=== PATIENT | male | born 1945 | race Caucasian/White ===

== ENCOUNTER 2017-02-01 13:38 | Inpatient (IN) | payer OTHER ==
[~2017-02-01] VITALS: Ht 170.2 cm; Wt 104.0 kg
[~2017-02-01 13:38] MED LIST: ALBU0.08 INH; AMIO200T4 PO; ASPI81TA28 PO; ATOR-26 PO; CALC500C3 PO; CMD/25 PO; DOCU100T7 PO; LEVO25TA5 PO; LSX40 PO; METO25TA56 PO; NVLGIPEN SC; OXGN; PANT1TAB48 PO; SPR25 PO; TAMS0.4C38 PO
[2017-02-01] MEDS ORDERED: SODIUM CHLORIDE 0.9% 1000ML 1,000 ML IV SCH (14:17)
[2017-02-01] MEDS ORDERED: FURO-85 PO ×2 (14:28)
[2017-02-01] MEDS ORDERED: WARF5TAB7 PO ×2 (14:28)
[2017-02-01] MEDS ORDERED: RISP0.258 PO (14:28)
[2017-02-01] MEDS ORDERED: LORA-741 PO (14:28)
[2017-02-01] MEDS ORDERED: CITA10TA4 PO (14:28)
[2017-02-01] MEDS ORDERED: PRED10TA PO (14:28)
[2017-02-01 14:43] LABS: BASO % 0.1 %; BASO ABS # 0.01 K/uL (0-0.2); COMPLETE YES; EOS % 0.9 %; HEMATOCRIT 31.4 % (42-52); IG% 0.2 %; LYMPH ABS # 0.71 K/uL (1.2-3.4); MEAN CELL VOLUME 90.2 fL (80-100); MEAN CORPUSCULAR HEMOGLOBIN 28.2 pg (25-34); MEAN CORPUSCULAR HGB CONC 31.2 g/dl (32-36); MEAN PLATELET VOLUME 9.4 fL (7.4-10.4); MONO % 10.2 %; NEUT % 81.6 %; PLATELET COUNT 160 K/uL (130-400); RED BLOOD COUNT 3.48 M/uL (4.7-6.1); WHITE BLOOD COUNT 10.16 K/uL (4.8-10.8)
--- NOTE | 2017-02-01 14:43 | DIAGNOSTIC IMAGING REPORT ---
CHEST ONE VIEW PORTABLE CLINICAL HISTORY: Stroke mental status change COMPARISON STUDY: 01/30/2016 FINDINGS: Moderate increase in cardiac size compared to the prior study. Increase in pulmonary vascularity. Prior median sternotomy. Diaphragms smooth. Atelectasis medial right base. IMPRESSION: Congestive heart failure Electronically signed by: Jake Barbosa M.D. 02/01/2017 2:42 PM Dictated Date/Time: 02/01/2017 2:41 PM
--- NOTE | 2017-02-01 14:48 | DIAGNOSTIC IMAGING REPORT ---
HEAD CT NONCONTRAST CT DOSE: 537.48 mGy.cm HISTORY: Mental status change Stroke TECHNIQUE: Multiaxial CT images of the head were performed without the use of intravenous contrast. Comparison: None. Findings: The paranasal sinuses and mastoid air cells are clear. Findings of chronic small vessel change of the right periventricular as well as deep white matter regions bilaterally. Several old cortical infarction most likely present. There is no evidence for acute intracranial hemorrhage. There is no midline shift. There is small old infarct in left basal ganglia and/or anterior left thalamus. Ventricular system is midline. Third and fourth ventricle and negative shift. Impression: 1. Several old right and to a lesser extent left periventricular infarct. 2. No acute intracranial abnormality. Electronically signed by: Jake Barbosa M.D. 02/01/2017 2:47 PM Dictated Date/Time: 02/01/2017 2:44 PM
[2017-02-01] MEDS ORDERED: SODIUM CHLORIDE 0.9% 1000ML 1,000 ML IV STA (14:50)
[2017-02-01 15:00] LABS: BLOOD UREA NITROGEN 53 mg/dl (7-18); BUN/CREATININE RATIO 23.1 (10-20); CALCIUM 8.3 mg/dl (8.5-10.1); CARBON DIOXIDE 33 mmol/L (21-32); CHLORIDE 100 mmol/L (98-107); GLUCOSE 83 mg/dl (70-99); POTASSIUM 3.4 mmol/L (3.5-5.1); SODIUM 141 mmol/L (136-145)
[2017-02-01] MEDS ORDERED: SODI CHLOR 2.5MEQ/ML 14.6% INJ 155 MEQ in DEXTROSE 10% 1,000 ML IV SCH (15:00)
[2017-02-01] MEDS ORDERED: DEXTROSE 50% 50 ML SYR IV ONE (15:00)
[2017-02-01 15:05] LABS: CKMB/CK RATIO 1.4 (0-3.0)
[2017-02-01 15:07] LABS: PARTIAL THROMBOPLASTIN RATIO 2.1; PROTHROMBIN TIME (PATIENT) 67.5 SECONDS (9.0-12.0)
[2017-02-01 15:19] LABS: ALKALINE PHOSPHATASE 104 U/L (45-117); ALT/SGPT 34 U/L (12-78); AST/SGOT 23 U/L (15-37)
[2017-02-01] MEDS ORDERED: CEFEPIME IV 1,000 MG in DEXTROSE 5% 100ML 100 ML IV STA (15:25)
[2017-02-01 15:51] LABS: INR 5.9 (0.9-1.1)
[2017-02-01 15:59] LABS: URINE APPEARANCE CLEAR (CLEAR); URINE BILIRUBIN NEG (NEG); URINE COLOR YELLOW; URINE EPITHELIAL CELL AUTO 0-5 /lpf (0-5); URINE NITRITE POS (NEG); URINE PH 7.5 (4.5-7.5); URINE SPECIFIC GRAVITY 1.011 (1.000-1.030); UROBILINOGEN NEG (NEG); ZZURINE CULT IF INDIC CATH YES
[2017-02-01 16:02] LABS: MANUAL MICROSCOPIC REQUIRED? NO; REVIEW REQ? NO
[2017-02-01 16:14] LABS: BENZODIAZEPINE, URINE NEG (NEG); COCAINE,URINE NEG (NEG); PHENCYCLIDINE, URINE NEG (NEG)
[2017-02-01] MEDS ORDERED: ACETAMINOPHEN 325 MG TAB PO PRN (16:45)
[2017-02-01] MEDS ORDERED: ONDANSETRON INJ 2 MG/ML 2 ML VIAL IV PRN (16:45)
[2017-02-01] MEDS ORDERED: VNTHFA/IN INH (16:51)
[2017-02-01] MEDS ORDERED: OXGN (16:51)
[2017-02-01] MEDS ORDERED: ZOLP5TAB PO (16:51)
[2017-02-01] MEDS ORDERED: OXYM0.056 NAE (16:51)
[2017-02-01] MEDS ORDERED: METO25TA56 PO (16:51)
[2017-02-01] MEDS ORDERED: PHARMACIST DISCHARGE MED REC CONSULT PRN (17:15)
[2017-02-01] MEDS ORDERED: ALBUTEROL HFA 8 GM INHALER INH PRN (17:30)
[2017-02-01] MEDS ORDERED: GLUCOSE 10 TABS/TUBE PO PRN (17:30)
[2017-02-01] MEDS ORDERED: OXYMETAZOLINE HCL 0.05% NA SPR 15 ML BTL NAE PRN (17:30)
[2017-02-01] MEDS ORDERED: GLUCAGON FOR INJ 1 MG VIAL SQ PRN (17:30)
[2017-02-01] MEDS ORDERED: PHARMACY GLYCEMIC MGMT CONSULT SCH (17:31)
--- NOTE | 2017-02-01 17:52 | DIAGNOSTIC IMAGING REPORT ---
LEFT FIRST TOE 3 VIEWS CLINICAL HISTORY: Cellulitis. FINDINGS: 3 views of the left first toe are obtained. No prior studies are available for comparison at the time of dictation. The skeletal structures are osteopenic. There is no radiographic evidence of fracture. There is bony erosion and cortical destruction seen involving the tuft of the first distal phalanx, typical in appearance for osteomyelitis. Significant soft tissue edema is present in the first toe. No subcutaneous gas is identified. Mild arthritic change is noted at the first metatarsophalangeal articulation. IMPRESSION: Findings are consistent with osteomyelitis involving the tuft of the first distal phalanx with overlying cellulitis. Electronically signed by: Rudolph Figueroa M.D. 02/01/2017 5:51 PM Dictated Date/Time: 02/01/2017 5:50 PM
[2017-02-01] MEDS ORDERED: HYDROCORTISONE IV 100 MG in SYRINGE 0 ML IV ONE (18:00)
[2017-02-01] MEDS ORDERED: LEVETIRACETAM IV 1,000 MG in DEXTROSE 5% 100ML 100 ML IV STA (18:14)
[2017-02-01] MEDS: POTASSIUM CHLR 10 MEQ / WTR 10 MEQ in PREMIXED WATER 100 ML IV SCH ×2 (18:19→18:23)
[2017-02-01] MEDS: D5W AND NSS 1,000 ML IV SCH (18:19)
[2017-02-01] MEDS ORDERED: VANCOMYCIN CONSULT ACTIVE PRN (18:22)
[2017-02-01] MEDS ORDERED: POTASSIUM CHLORIDE 10 MEQ / 100ML WTR IV ONE (18:22)
[2017-02-01] MEDS ORDERED: PIPERACILL/TAZOBAC CONSULT ACTIVE PRN (18:23)
[2017-02-01] MEDS ORDERED: VANCOMYCIN INJ 2,100 MG in SODIUM CHLORIDE 0.9% 500ML 500 ML IV ONE (19:00)
[2017-02-01] MEDS ORDERED: PIPERACILL/TAZOBAC IV 4.5 GM in DEXTROSE 5% 100ML IV ONE (19:00)
[2017-02-01 19:41] LABS: CREATININE 2.3 mg/dl (0.60-1.40)
[2017-02-01 19:42] LABS: BUN/CREATININE RATIO 22.5 (10-20); POTASSIUM 4.3 mmol/L (3.5-5.1)
--- NOTE | 2017-02-01 19:43 | Pharmacy Progress Note ---
Pharmacy Antibiotic Consult Date of Service: Feb 01, 2017. Pharmacy Dosing Scope Pharmacy is consulted to initiate vancomycin/Zosyn IV dosing therapy, order appropriate labs and adjust drug dose/frequency. Subjective The patient is a 71 year old male admitted on Feb 01, 2017 at 16:40 with extreme AMS. He is being started on vancomycin for a cellulitis and Zosyn for a UTI. He also has hypoglycemia. Objective Height (Feet): 5 Height (Inches): 7.00 Weight (Kilograms): 104.000 Lab Results (24hrs): Laboratory Tests Test 02/01/17 14:30 02/01/17 19:00 BUN/Creatinine Ratio 23.1 Blood Urea Nitrogen 53 mg/dl Creatinine 2.30 mg/dl White Blood Count 10.16 K/uL Red Blood Count 3.48 M/uL Hemoglobin 9.8 g/dL Hematocrit 31.4 % Mean Corpuscular Volume 90.2 fL Mean Corpuscular Hemoglobin 28.2 pg Mean Corpuscular Hemoglobin Concent 31.2 g/dl Platelet Count 160 K/uL Mean Platelet Volume 9.4 fL Neutrophils (%) (Auto) 81.6 % Lymphocytes (%) (Auto) 7.0 % Monocytes (%) (Auto) 10.2 % Eosinophils (%) (Auto) 0.9 % Basophils (%) (Auto) 0.1 % Neutrophils # (Auto) 8.29 K/uL Lymphocytes # (Auto) 0.71 K/uL Monocytes # (Auto) 1.04 K/uL Eosinophils # (Auto) 0.09 K/uL Basophils # (Auto) 0.01 K/uL Assessment & Plan Loading dose: vancomycin 2100 mg IV X 1 dose then: Random level has been ordered for: . (patient's kidney function reflects a half-life of at least 24 hours and is in acute injury therefore will check random level tomorrow morning to determine if additional dosing necessary) Goal peak level estimate: between 35 - 40 mcg/mL. Goal trough level estimate: between 10 - 15 mcg/mL (SSTI and/or UTI). ZOSYN: dosing of Zosyn 4.5 gm IV x 1 then 4.5 gm IV [id number] has been chosen due to the patient's body habitus Pharmacy will continue to follow and will adjust dose/frequency as necessary. Thank you
--- NOTE | 2017-02-01 19:48 | EMERGENCY ROOM VISIT NOTE ---
History Report prepared by Sonam: Lam Alegre Under the Supervision of: Dr. Jose Royal D.O. First contact with patient: 14:05 Chief Complaint: HYPOGLYCEMIA Stated Complaint: HYPOGLYCEMIA History of Present Illness The patient is a 71 year old male who presents to the Emergency Room with complaints of an episode of hypoglycemia occurring about 2 hours ago. Per the nurse, his blood sugar was 29 when EMS arrived, and it is 106 here in the ER. He usually answers questions appropriately at baseline. The patient denies having any headache, shortness of breath, chest pain, abdominal pain, urinary symptoms, nausea, vomiting, or diarrhea. Per the patient, they received a call from their son noting that the patient stopped responding while getting ready for lunch 2 hours ago. The grandson noticed a facial droop and summoned EMS. The family adds that he had a severe headache last night, and one bout of watery diarrhea this morning. He has not had vomiting, but his overall demeanor has changed recently. They report he has left-sided weakness at baseline from a past stroke. He takes Coumadin, and is normally on 2 liters of supplemental oxygen. The patient has recently been started on Risperidone 0.25 mg and prednisone, and also takes Jantoven. The patient has atrial fibrillation and diabetes, but does not take his Novolog. Source of History: patient, family, nursing staff Onset: about 2 hours ago Position: other (blood) Quality: other (hypoglycemia) Timing: other (episode) Associated Symptoms: + diarrhea, + headache, + weakness, No SOB, No abdominal pain, No chest pain, No urinary symptoms, No vomiting Review of Systems See HPI for pertinent positives & negatives. A total of 10 systems reviewed and were otherwise negative. 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 Levothyroxine Sodium (Levothyroxine Sodium), 25 MCG PO DAILY Lorazepam (Ativan), 0.5 MG PO HS Metoprolol Tartrate (Lopressor) (Lopressor), 25 MG PO QAM Oxygen (Oxygen), 2 LITERS NA HS Pantoprazole (Protonix), 40 MG PO HS Prednisone Tab (Prednisone), 10 MG PO Q2D Risperidone (Risperdal), 0.25 MG PO BID Spironolactone (Spironolactone), 25 MG PO QAM Tamsulosin Hcl (Flomax), 0.4 MG PO HS Warfarin Sod (Jantoven), 5 MG PO DAILY ON TUESDAY Warfarin Sod (Jantoven), 2.5 MG PO [id number] Scheduled PRN Albuterol Hfa (Ventolin Hfa), 2 PUFFS INH Q4H PRN for SOB/Wheezing Docusate Sodium (Stool Softener), 100 MG PO DAILY PRN for Constipation Oxymetazoline Hcl (Afrin), 1 SPRAY EH DAILY PRN for Nasal Congestion Zolpidem Tartrate (Ambien), 5 MG PO HS PRN for Sleep Allergies Coded Allergies: Fish Allergy (Verified Allergy, Unknown, ., 01/30/16) Physical Exam Vital Signs Date Time Temp Pulse Resp B/P Pulse Ox O2 Delivery O2 Flow Rate FiO2 02/01/17 15:50 35.2 02/01/17 15:26 64 18 98/57 99 Room Air 02/01/17 15:10 73 24 120/59 100 Nasal Cannula 3.0 02/01/17 14:46 100 Nasal Cannula 3.0 02/01/17 13:44 57 139/91 100 Nasal Cannula 3.0 Physical Exam GENERAL: Sitting up in bed, ill appearing, slow to respond. EYE EXAM: normal conjunctiva, PERRL and EOM's intact OROPHARYNX: no exudate, no erythema, lips, buccal mucosa, and tongue normal and mucous membranes are moist NECK: supple, no nuchal rigidity, no adenopathy, non-tender LUNGS: Coarse bilaterally in the bases. CHEST: Old midline incision present. HEART: Bradycardic. ABDOMEN: abdomen soft, non-tender, normo-active bowel sounds, no masses, no rebound or guarding. BACK: Back is symmetrical on inspection and there is no deformity, no midline tenderness, no CVA tenderness. SKIN: no rashes and no bruising UPPER EXTREMITIES: upper extremities are grossly normal. LOWER EXTREMITIES: No pitting edema. NEURO EXAM: Alert; oriented to name, but not place or year. Cranial nerves reveals slight left facial droop; no obvious focal deficit of the upper or lower extremities; slurring of his words noted. No drift. Finger to nose intact. Gross sensation intact. Difficult to obtain exam. Medical Decision & Procedures ER Provider Diagnostic Interpretation: Radiology results have been interpreted by the radiologist and reviewed by me. HEAD CT NONCONTRAST Findings: The paranasal sinuses and mastoid air cells are clear. Findings of chronic small vessel change of the right periventricular as well as deep white matter regions bilaterally. Several old cortical infarction most likely present. There is no evidence for acute intracranial hemorrhage. There is no midline shift. There is small old infarct in left basal ganglia and/or anterior left thalamus. Ventricular system is midline. Third and fourth ventricle and negative shift. Impression: 1. Several old right and to a lesser extent left periventricular infarct. 2. No acute intracranial abnormality. Electronically signed by: Jake Barbosa M.D. 02/01/2017 2:47 PM Dictated Date/Time: 02/01/2017 2:44 PM CHEST ONE VIEW PORTABLE FINDINGS: Moderate increase in cardiac size compared to the prior study. Increase in pulmonary vascularity. Prior median sternotomy. Diaphragms smooth. Atelectasis medial right base. IMPRESSION: Congestive heart failure Electronically signed by: Jake Barbosa M.D. 02/01/2017 2:42 PM Dictated Date/Time: 02/01/2017 2:41 PM Laboratory Results 02/01/17 14:30 Red Blood Count 3.48, Mean Corpuscular Volume 90.2, Mean Corpuscular Hemoglobin 28.2, Mean Corpuscular Hemoglobin Concent 31.2, Mean Platelet Volume 9.4, Neutrophils (%) (Auto) 81.6, Lymphocytes (%) (Auto) 7.0, Monocytes (%) (Auto) 10.2, Eosinophils (%) (Auto) 0.9, Basophils (%) (Auto) 0.1, Neutrophils # (Auto ) 8.29, Lymphocytes # (Auto) 0.71, Monocytes # (Auto) 1.04, Eosinophils # (Auto ) 0.09, Basophils # (Auto) 0.01 Test 02/01/17 14:30 02/01/17 14:50 02/01/17 15:46 White Blood Count 10.16 K/uL (4.8-10.8) Red Blood Count 3.48 M/uL (4.7-6.1) Hemoglobin 9.8 g/dL (14.0-18.0) Hematocrit 31.4 % (42-52) Mean Corpuscular Volume 90.2 fL (80-100) Mean Corpuscular Hemoglobin 28.2 pg (25-34) Mean Corpuscular Hemoglobin Concent 31.2 g/dl (32-36) Platelet Count 160 K/uL (130-400) Mean Platelet Volume 9.4 fL (7.4-10.4) Neutrophils (%) (Auto) 81.6 % Lymphocytes (%) (Auto) 7.0 % Monocytes (%) (Auto) 10.2 % Eosinophils (%) (Auto) 0.9 % Basophils (%) (Auto) 0.1 % Neutrophils # (Auto) 8.29 K/uL (1.4-6.5) Lymphocytes # (Auto) 0.71 K/uL (1.2-3.4) Monocytes # (Auto) 1.04 K/uL (0.11-0.59) Eosinophils # (Auto) 0.09 K/uL (0-0.5) Basophils # (Auto) 0.01 K/uL (0-0.2) RDW Standard Deviation 52.8 fL (36.4-46.3) RDW Coefficient of Variation 16.1 % (11.5-14.5) Immature Granulocyte % (Auto) 0.2 % Immature Granulocyte # (Auto) 0.02 K/uL (0.00-0.02) Prothrombin Time 67.5 SECONDS (9.0-12.0) Prothromb Time International Ratio 5.9 (0.9-1.1) Activated Partial Thromboplast Time 53.9 SECONDS (21.0-31.0) Partial Thromboplastin Ratio 2.1 Magnesium Level 2.2 mg/dl (1.8-2.4) Total Bilirubin 0.5 mg/dl (0.2-1) Direct Bilirubin 0.2 mg/dl (0-0.2) Aspartate Amino Transf (AST/SGOT) 23 U/L (15-37) Alanine Aminotransferase (ALT/SGPT) 34 U/L (12-78) Alkaline Phosphatase 104 U/L (45-117) Total Creatine Kinase 77 U/L (39-308) Creatine Kinase MB 1.1 ng/ml (0.5-3.6) Creatine Kinase MB Ratio 1.4 (0-3.0) Troponin I < 0.015 ng/ml (0-0.045) Total Protein 7.2 gm/dl (6.4-8.2) Albumin 3.3 gm/dl (3.4-5.0) Lipase 230 U/L (73-393) Bedside Prothrombin Time INR 6.5 (0.9-1.1) Urine Color YELLOW Urine Appearance CLEAR (CLEAR) Urine pH 7.5 (4.5-7.5) Urine Specific [place] 1.011 (1.000-1.030) Urine Protein NEG (NEG) Urine Glucose (UA) NEG (NEG) Urine Ketones NEG (NEG) Urine Occult Blood NEG (NEG) Urine Nitrite POS (NEG) Urine Bilirubin NEG (NEG) Urine Urobilinogen NEG (NEG) Urine Leukocyte Esterase MODERATE (NEG) Urine WBC (Auto) 10-30 /hpf (0-5) Urine RBC (Auto) 0-4 /hpf (0-4) Urine Hyaline Casts (Auto) 1-5 /lpf (0-5) Urine Epithelial Cells (Auto) 0-5 /lpf (0-5) Urine Bacteria (Auto) 4+ (NEG) Urine Opiates Screen NEG (NEG) Urine Methadone, Qualitative NEG (NEG) Urine Barbiturates NEG (NEG) Urine Phencyclidine (PCP) Level NEG (NEG) Ur Amphetamine/Methamphetamine NEG (NEG) MDMA (Ecstasy) Screen NEG (NEG) Urine Benzodiazepines Screen NEG (NEG) Urine Cocaine Metabolite NEG (NEG) Urine Marijuana (THC) NEG (NEG) Laboratory results per my review. Medications Administered Medications (Trade) Dose Ordered Sig/Zoë Route Start Time Stop Time Status Last Admin Dose Admin Sodium Chloride (Nss 1000ml) 1,000 ml @ 999 mls/hr Q1H1M STAT IV 02/01/17 14:50 02/01/17 15:50 DC 02/01/17 14:58 999 MLS/HR Dextrose 25 ml 25 ml NOW ONCE IV 02/01/17 15:00 02/01/17 15:01 DC 02/01/17 14:59 25 ML Sodium Chloride 155 meq/Dextrose 1,062 ml @ 100 mls/hr [id number] IV 02/01/17 15:00 02/01/17 17:45 DC 02/01/17 15:29 100 MLS/HR Cefepime HCl/ Dextrose (Maxipime IV/D5 100ml) 111.3 ml @ 200 mls/hr NOW STAT IV 02/01/17 15:25 02/01/17 15:58 DC 02/01/17 17:17 200 MLS/HR ECG Indication: other (hypoglycemia) Rate (beats per minute): 64 Rhythm: other (AV paced) Findings: LBBB, left axis deviation ED Course ED COURSE: Vital signs were reviewed and showed bradycardic. The patients medical record was reviewed The above diagnostic studies were performed and reviewed. ED treatments and interventions as stated above. 1407: The patient was evaluated in room A11B. A complete history and physical examination was performed. 1417: Ordered NSS 1,000 ml @ 50 mls/hr IV. 1439: The nursing staff still has not received an i-STAT INR. 1450: Ordered NSS 1,000 ml @ 999 mls/hr IV. 1451: Blood sugar is 74; INR is 6. 1459: I updated the patient's family. 1500: Ordered Sodium Chloride 155 meq/Dextrose 1,062 ml @ 100 mls/hr IV, and Dextrose 25 ml IV. 1525: Ordered Cefepime HCl 1,000 mg/Dextrose 111.3 ml @ 200 mls/hr IV. 1525: I reviewed the patient's case with Naz Pompa PA-C. She will evaluate the patient for further management. 1530: Upon reevaluation, the patient is doing well.I discussed my findings with the patient and he understands and agrees with the treatment plan. Based on the patients age, coexisting illnesses, exam and lab findings the decision to treat as an inpatient was made. The patient remained stable while under my care. The patient will be evaluated for further management. 1606: I updated the patient. 1620: I updated the patient. Medical Decision Differential Diagnosis includes but is not limited to ischemic Stroke, hemorrhagic stroke, bells palsy, mass, neoplasm, migraine headache, seizure, subarachnoid hemorrhage, TIA, and transient global amnesia. Patient is a 71-year-old male who presents the ER for slurred speech and unresponsiveness. This started at 12 PM and EMS evaluated him and found his blood sugar to be in the 20s. He was given dextrose and had slight improvement of symptoms. Upon presentation to the ER he still found to be very lethargic and confused. He does have a little bit of a facial droop. He does have a previous old stroke. INR was supratherapeutic at 6. CT head shows no acute pathology. With his history of hypoglycemia prior to arrival and supratherapeutic INR a stroke alert was not called. Labs showed no significant leukocytosis and mild anemia. Creatinine was elevated at 2.3. LFTs, lipase and bilirubin were unremarkable. Troponin was negative. Patient continued to drop his blood sugars was placed on D10 drip. He takes no oral or injectable insulins. At this time I favor that this is likely infectious as he was slightly hypothermic. He was given cefepime. Later on in his course UA resulted and did suggest a UTI. UA was positive for nitrates, esterase, white cells and +4 bacteria. This that aren't previously been covered with IV antibiotics. Systolic blood pressures did trend down into the 90s. He was treated aggressively with fluids admitted to internal medicine with sepsis secondary to UTI. Consults Time Called: 1515 Consulting Physician: Naz Pompa PA-C, [facility] Returned Call: 1525 I reviewed the patient's case with Naz Pompa PA-C. She will evaluate the patient for further management. Impression Primary Impression: Sepsis Additional Impressions: Altered mental status Hypoglycemia Acute kidney injury UTI (urinary tract infection) Anemia Scribe Attestation The scribe's documentation has been prepared under my direction and personally reviewed by me in its entirety. I confirm that the note above accurately reflects all work, treatment, procedures, and medical decision making performed by me. Departure Information Dispostion Being Evaluated By Hospitalist Prescriptions Metoprolol Tartrate (Lopressor) (Lopressor) 25 Mg Tab 25 MG PO QAM for 30 Days, #30 TAB 2 Refills Prov: Naz Pompa PA-C 02/01/17 Referrals Familia Biggs D.O. (PCP) Patient Instructions My [facility] Problem Qualifiers Primary Impression: Sepsis Sepsis type: sepsis due to unspecified organism Qualified Codes: A41.9 - Sepsis, unspecified organism Additional Impressions: Altered mental status Altered mental status type: unspecified Qualified Codes: R41.82 - Altered mental status, unspecified UTI (urinary tract infection) Urinary tract infection type: site unspecified Hematuria presence: without hematuria Qualified Codes: N39.0 - Urinary tract infection, site not specified
[2017-02-01 20:53] LABS: ESTIMATED AVERAGE GLUCOSE 137 mg/dl; HA1C FLAG Normal (Normal)
--- NOTE | 2017-02-01 20:56 | DIAGNOSTIC IMAGING REPORT ---
ULTRASOUND OF THE CAROTID ARTERIES CLINICAL HISTORY: Strokelike symptoms. COMPARISON STUDY: No priors. TECHNIQUE: Real-time, grayscale, and color Doppler sonography of the carotid arteries is performed. Images are reviewed in the transverse and longitudinal planes. The examination is significantly degraded by lack of patient cooperation. FINDINGS: Blood pressures were not assessed. The carotid arteries are patent bilaterally and demonstrate antegrade flow. There is moderate to advanced echogenic shadowing atherosclerotic plaque seen bilaterally. Normal doppler arterial waveforms are seen throughout. Velocity measurements are listed below. Common carotid peak systolic velocity (cm/sec): RIGHT: 82 LEFT: 79 ICA proximal peak systolic velocity (cm/sec): RIGHT: 82 LEFT: 102 ICA mid peak systolic velocity (cm/sec): RIGHT: 89 LEFT: 107 ICA distal peak systolic velocity (cm/sec): RIGHT: 89 LEFT: 125 ICA/CC peak systolic ratio: RIGHT: 1.1 LEFT: 1.6 Antegrade flow was shown in the vertebral arteries. The external carotid arteries are patent. Elevated velocities within the left external carotid artery suggests some degree of stenosis. IMPRESSION: 1. Atherosclerotic plaque with no sonographic evidence of hemodynamically significant stenosis in the right or left carotid arterial system. 2. Antegrade flow is shown in the vertebral arteries. Electronically signed by: Rudolph Figueroa M.D. 02/01/2017 8:54 PM Dictated Date/Time: 02/01/2017 8:52 PM
[2017-02-01] MEDS: RISPERIDONE 0.5 MG TAB PO SCH (21:01)
[2017-02-01] MEDS: TAMSULOSIN HCL 0.4 MG CAP PO SCH (21:02)
[2017-02-01] MEDS: ATORVASTATIN 40 MG TAB PO SCH (21:02)
[2017-02-01] MEDS: PANTOprazole SOD 40 MG TAB PO SCH (21:03)
--- NOTE | 2017-02-01 21:09 | Pharmacy Progress Note ---
Glycemic Control Intl Consult Date of Service Feb 01, 2017. Scope Glycemic Pharmacist consulted by Naz Pompa on 02/01/2017 for glycemic control and to write orders per [facility] inpatient glycemic control protocol Objective Weight (Kilograms): 104.000 Accuchecks BSG (last 24hrs): Test 02/01/17 13:47 02/01/17 14:21 02/01/17 14:30 02/01/17 14:50 Bedside Glucose 106 mg/dl (70-99) 92 mg/dl (70-99) 74 mg/dl (70-99) Random Glucose 83 mg/dl (70-99) Test 02/01/17 16:40 02/01/17 17:19 02/01/17 19:00 Bedside Glucose 122 mg/dl (70-99) 124 mg/dl (70-99) Random Glucose 132 mg/dl (70-99) Laboratory Data (last 24hrs) Test 02/01/17 14:30 02/01/17 19:00 Anion Gap 8.0 mmol/L 7.0 mmol/L BUN/Creatinine Ratio 23.1 22.5 Blood Urea Nitrogen 53 mg/dl 52 mg/dl Creatinine 2.30 mg/dl 2.30 mg/dl Hemoglobin A1c 6.4 % Potassium Level 3.4 mmol/L 4.3 mmol/L Sodium Level 141 mmol/L 140 mmol/L White Blood Count 10.16 K/uL Red Blood Count 3.48 M/uL Hemoglobin 9.8 g/dL Hematocrit 31.4 % Mean Corpuscular Volume 90.2 fL Mean Corpuscular Hemoglobin 28.2 pg Mean Corpuscular Hemoglobin Concent 31.2 g/dl Platelet Count 160 K/uL Mean Platelet Volume 9.4 fL Neutrophils (%) (Auto) 81.6 % Lymphocytes (%) (Auto) 7.0 % Monocytes (%) (Auto) 10.2 % Eosinophils (%) (Auto) 0.9 % Basophils (%) (Auto) 0.1 % Neutrophils # (Auto) 8.29 K/uL Lymphocytes # (Auto) 0.71 K/uL Monocytes # (Auto) 1.04 K/uL Eosinophils # (Auto) 0.09 K/uL Basophils # (Auto) 0.01 K/uL HbA1c Test 02/01/17 14:30 Hemoglobin A1c 6.4 % (4.5-5.6) H Recent Pertinent Medications Outpatient Anti-diabetic Regimen: * according to nursing report patient is not on insulin or diabetes medications at home * A1c = 6.4 % 02/01/2017 Risk Factors for Insulin Resistance: * Steroids: hydrocortisone 100 mg IV x 1 then 50 mg IV q6 hours * Infection: sepsis * Pressors: * IVF: D5Ns @75 ml/hr * Recent Surgery * Diet: NPO * Mechanical Ventilation: Assessment & Plan ASSESSMENT: * ADA & AACE recommend a goal blood sugar range 140-180 mg/dl for the majority of critically ill & non-critically ill patients. However, more stringent targets may be selected in individual cases. PLAN FOR INPATIENT GLYCEMIC CONTROL: * Holding outpatient oral diabetes medications * Correctional Insulin with NOVOLOG per scale Q6hrs while NPO * Goal Range: Low 140 mg/dL - High 180 mg/dL * Correction Factor: 30 mg/dL/unit * Please note that the plan above was derived based on current level of insulin resistance and hospital stress. These recommendations are appropriate for inpatient admission only. Plan of care upon discharge will need to be reassessed to avoid potential outpatient hypo/hyperglycemia. Thank you.
[2017-02-01] MEDS ORDERED: TRAMADOL HCL 50 MG TAB PO PRN (21:30)
[2017-02-01] MEDS ORDERED: TRAMADOL HCL 50 MG TAB PO ONE (21:30)
[2017-02-01] MEDS ORDERED: SODIUM CHLORIDE 0.9% 500ML 500 ML IV SCH (21:30)
--- NOTE | 2017-02-01 22:29 | Progress Note ---
Progress Note Date of Service Feb 01, 2017. Progress Note ATTENDING ADDENDUM care coordinated with MAIKOL Pompa please refer to her notes for full details, I agree with her notes patient seen and examined, records reviewed by myself as well patient examined with family at bedside while in observation at the ER, son noted that patient's mental status was waxing/waning- occasionally lethargic, but becomes alert again at one point, they noted patient to be shaking all his extremities, with his eyes opened, episode lasting about 5 mins, then patient became lethargic on exam, patient was alert, answering questions, then became nonverbal, and was conversant, following all commands again still has right facial droop per family patient states he feels fine overall cannot recall events this morning denies headache, dizziness, nausea, chest pain, dyspnea no focal weakness/numbness no other symptoms VS noted and reviewed oriented x 2, not in distress, speaks in sentences with no effort nor accessory muscle use normal rate, regular rhythm, no murmurs clear breath sounds bilaterally non distended, soft, nontender (+) wound on the left big toe with erythema, edema no neuro deficits WBC 10.[address] head: no acute CVA noted ASSESSMENT/PLAN> 71 year old male with history of A fib, s/p CVA with left sided residual weakness. CAD, CHF, DM, presenting with altered mental status and right sided facial droop ALTERED MENTAL STATUS WITH RIGHT SIDED FACIAL DROOP POSSIBLE ACUTE CVA already on coumadin, INR 6.5 and Aspirin MRI contraindicated as patient has a pacemaker repeat CT head tomorrow may need to reverse INR, hold coumadin and aspirin if area of ischemia is >1/ 3 of cerebral hemisphere check Echo, Carotids POSSIBLE TOXIC METABOLIC ENCEPHALOPATHY FROM INFECTION LEFT TOE ULCER, CELLULITIS, R/O OSTEOMYELITIS R/O UTI ff up cultures Toe xray IV fluids empiric Vanc + Zosyn IV POSSIBLE SEIZURE episode noted while in the ER EEG Keppra IV HYPOTHERMIA, HYPOGLYCEMIA likely from underlying Infection Chronic Prednisone use - management of infection as noted above - hold prednisone, start stress dose Hydrocortisone and taper accordingly ACUTE RENAL FAILURE ON CKD - possible pre renal - HOLD diuretics - IV fluids other diagnoses and plan of care as per MAIKOL Pompa's notes Harish Irizarry MD
--- NOTE | 2017-02-01 22:54 | History and Physical ---
History & Physical Date & Time of Service: Feb 01, 2017 at 17:28 Chief Complaint: Hypoglycemia Primary Care Physician: Familia Biggs D.O. History of Present Illness Source: family, clinic records, hospital records This is a 71 y/o male with PMH of prior CVA in 2014 with residual left sided weakness, CAD, diastolic CHF, paroxysmal atrial fibrillation, SA node dysfunction s/p pacemaker, HTN, HL, DM type 2, and other problems listed below who presents to the ED for altered mental status and right facial droop. Hx cannot be obtained from pt due to mental status. Family states for past 2 weeks patient has been agitated and aggressive and was having visual hallucinations seeing people who were not there. Last night pt had severe BRISENO which resolved with aspirin. He ate breakfast this morning and had a loose BM. Then around noon while with his grandson he became verbally unresponsive with right facial droop. It was reported that his blood sugar was 20 when EMS arrived. He received glucose [employer] and dextrose in the ER. Initially on arrival patient was unable to identify his son. Could not tell me the location on beginning of my exam. By the end of my exam was able to identify his son and tell he was in the hospital. Disoriented to date but family states that is typical. Still has right facial droop. Family reported a generalized shaking episode in the ER lasting 5 minutes but did not alert the staff. Family reports intermittent staring after that. Patient is unable to tell what happened today. When questioned states he "feels good". Patient himself denies but I do not consider his answers reliable. Family states pt was treated for URI with productive cough and cellulitis of right great toe with abx approx 1 month ago. The cough resolved but the toe did not improve. Has urinary odor at baseline and now has darkened urine. No fevers or chills per the family. No recent bleeding per the family. Patient is mostly bedbound and requires assistance with most ADL's. Family having a hard time taking care of him recently and looking into placement. Daughter in law gives medications. Patient has not had insulin for several months as he has been refusing it. Past Medical/Surgical History Medical Problems: (1) Anemia Nos Status: Chronic (2) Atrial Fibrillation Status: Chronic (3) CHF (congestive heart failure) Status: Resolved (4) Chronic anticoagulation Status: Chronic (5) CKD (chronic kidney disease), stage III Status: Chronic (6) COPD (chronic obstructive pulmonary disease) Status: Chronic (7) Diab W Neuro Manifest, Type Ii Or Unspec Type, Not Uncntrld Status: Chronic (8) Diastolic CHF Status: Chronic (9) GI bleed Status: Resolved (10) History of stroke Permanent Comment: 2014 with residual left sided weakness Status: Chronic (11) Hyperlipidemia Nec/Nos Status: Chronic (12) Hypertension Nos Status: Chronic (13) Hypothyroidism Status: Chronic (14) Legal blindness Status: Chronic (15) Myocardial infarct Status: Resolved (16) Pacemaker Status: Chronic (17) Pulmonary hypertension Status: Chronic (18) SA node dysfunction Status: Chronic (19) Urin Tract Infection Nos Status: Resolved Surgical Problems: (1) H/O mitral valve replacement Status: Chronic (2) Heart valve replaced Status: Resolved (3) Hx of CABG Status: Resolved Family History Diabetes mellitus FH: lung disease FHx: cancer FHx: heart disease Hypertension Social History Smoking Status: Former Smoker Alcohol Use: none Drug Use: none Marital Status: Occupational Status: retired Immunizations History of Influenza Vaccine: Yes Influenza Vaccine Date: Sep 09, 2015 History of Pneumococcal: Yes Pneumococcal Date: Mar 06, 2014 Multi-Drug Resistant Organisms History of MDRO: Yes Type of MDRO: VRE Allergies Coded Allergies: Fish Allergy (Verified Allergy, Unknown, ., 01/30/16) Home Medications Scheduled Amiodarone Hcl (Cordarone), 200 TAB PO QAM Aspirin (Aspirin Ec), 81 MG PO DAILY Atorvastatin (Lipitor), 80 MG PO HS Citalopram Hydrobromide (Citalopram Hydrobromide), 10 MG PO DAILY Furosemide (Lasix), 40 MG PO QAM Insulin Aspart (Novolog Flexpen), 0-10 UNITS SC SLIDING SCALE. Levothyroxine Sodium (Levothyroxine Sodium), 25 MCG PO DAILY Lorazepam (Ativan), 0.5 MG PO HS Metoprolol Tartrate (Lopressor) (Lopressor), 25 MG PO QAM Oxygen (Oxygen), 2 LITERS NA HS Pantoprazole (Protonix), 40 MG PO HS Prednisone Tab (Prednisone), 10 MG PO Q2D Risperidone (Risperdal), 0.25 MG PO BID Spironolactone (Spironolactone), 25 MG PO QAM Tamsulosin Hcl (Flomax), 0.4 MG PO HS Warfarin Sod (Novtoven), 5 MG PO DAILY ON TUESDAY Warfarin Sod (Novtoven), 2.5 MG PO [id number] Scheduled PRN Albuterol Hfa (Ventolin Hfa), 2 PUFFS INH Q4H PRN for SOB/Wheezing Docusate Sodium (Stool Softener), 100 MG PO DAILY PRN for Constipation Oxymetazoline Hcl (Afrin), 1 SPRAY EH DAILY PRN for Nasal Congestion Zolpidem Tartrate (Ambien), 5 MG PO HS PRN for Sleep Review of Systems Unable to obtain ROS due to mental status. Physical Exam Vital Signs Date Time Temp Pulse Resp B/P Pulse Ox O2 Delivery O2 Flow Rate FiO2 02/01/17 15:50 35.2 02/01/17 15:26 64 18 98/57 99 Room Air 02/01/17 15:10 73 24 120/59 100 Nasal Cannula 3.0 02/01/17 14:46 100 Nasal Cannula 3.0 02/01/17 13:44 57 139/91 100 Nasal Cannula 3.0 General Appearance: + pertinent finding (confused acutely ill appearing 71 year old male, not in distress, poor hygiene, family at bedside) Head: normocephalic, atraumatic Eyes: normal inspection, PERRL, + pertinent finding (unable to cooperate with EOM exam) ENT: hearing grossly normal, pharynx normal Neck: supple, trachea midline Respiratory/Chest: lungs clear, normal breath sounds, no respiratory distress, no accessory muscle use Cardiovascular: regular rate, rhythm, + systolic murmur Abdomen/GI: normal bowel sounds, non tender, soft Extremities/Musculoskelatal: no calf tenderness, + pertinent finding (trace pretibial edema bilaterally) Neurologic/Psych: alert, + pertinent finding (awake but falls asleep intermittently. oriented to person and place, disoriented to date. unable to recall recent events. does not follow commands appropriately. mild right sided facial droop. uncooperative with motor exam but spontaneously moves all extremities. sensation to light touch grossly intact. toes downgoing. ) Skin: warm/dry, + pertinent finding (scattered ecchymosis upper extremities. skin tear RUE. dressing on LUE. left great toe with significant erythema and tenderness. no fluctuance or drainage.) Diagnostics Laboratory Results Results Past 24 Hours Test 02/01/17 13:47 02/01/17 14:21 02/01/17 14:30 02/01/17 14:50 Range/Units Bedside Glucose 106 92 74 70-99 mg/dl White Blood Count 10.16 4.8-10.8 K/uL Red Blood Count 3.48 4.7-6.1 M/uL Hemoglobin 9.8 14.0-18.0 g/dL Hematocrit 31.4 42-52 % Mean Corpuscular Volume 90.2 80-100 fL Mean Corpuscular Hemoglobin 28.2 25-34 pg Mean Corpuscular Hemoglobin Concent 31.2 32-36 g/dl Platelet Count 160 130-400 K/uL Mean Platelet Volume 9.4 7.4-10.4 fL Neutrophils (%) (Auto) 81.6 % Lymphocytes (%) (Auto) 7.0 % Monocytes (%) (Auto) 10.2 % Eosinophils (%) (Auto) 0.9 % Basophils (%) (Auto) 0.1 % Neutrophils # (Auto) 8.29 1.4-6.5 K/uL Lymphocytes # (Auto) 0.71 1.2-3.4 K/uL Monocytes # (Auto) 1.04 0.11-0.59 K/uL Eosinophils # (Auto) 0.09 0-0.5 K/uL Basophils # (Auto) 0.01 0-0.2 K/uL RDW Standard Deviation 52.8 36.4-46.3 fL RDW Coefficient of Variation 16.1 11.5-14.5 % Immature Granulocyte % (Auto) 0.2 % Immature Granulocyte # (Auto) 0.02 0.00-0.02 K/uL Prothrombin Time 67.5 9.0-12.0 SECONDS Prothromb Time International Ratio 5.9 0.9-1.1 Activated Partial Thromboplast Time 53.9 21.0-31.0 SECONDS Partial Thromboplastin Ratio 2.1 Sodium Level 141 136-145 mmol/L Potassium Level 3.4 3.5-5.1 mmol/L Chloride Level 100 98-107 mmol/L Carbon Dioxide Level 33 21-32 mmol/L Anion Gap 8.0 3-11 mmol/L Blood Urea Nitrogen 53 7-18 mg/dl Creatinine 2.30 0.60-1.40 mg/dl Est Creatinine Clear Calc Drug Dose 32.9 ml/min Estimated GFR () 31.5 Estimated GFR (Non- 27.2 BUN/Creatinine Ratio 23.1 10-20 Random Glucose 83 70-99 mg/dl Calcium Level 8.3 8.5-10.1 mg/dl Magnesium Level 2.2 1.8-2.4 mg/dl Total Bilirubin 0.5 0.2-1 mg/dl Direct Bilirubin 0.2 0-0.2 mg/dl Aspartate Amino Transf (AST/SGOT) 23 15-37 U/L Alanine Aminotransferase (ALT/SGPT) 34 12-78 U/L Alkaline Phosphatase 104 45-117 U/L Total Creatine Kinase 77 39-308 U/L Creatine Kinase MB 1.1 0.5-3.6 ng/ml Creatine Kinase MB Ratio 1.4 0-3.0 Troponin I < 0.015 0-0.045 ng/ml Total Protein 7.2 6.4-8.2 gm/dl Albumin 3.3 3.4-5.0 gm/dl Lipase 230 73-393 U/L Bedside Prothrombin Time INR 6.5 0.9-1.1 Test 02/01/17 15:46 02/01/17 16:40 Range/Units Urine Color YELLOW Urine Appearance CLEAR CLEAR Urine pH 7.5 4.5-7.5 Urine Specific [place] 1.011 1.000-1.030 Urine Protein NEG NEG Urine Glucose (UA) NEG NEG Urine Ketones NEG NEG Urine Occult Blood NEG NEG Urine Nitrite POS NEG Urine Bilirubin NEG NEG Urine Urobilinogen NEG NEG Urine Leukocyte Esterase MODERATE NEG Urine WBC (Auto) 10-30 0-5 /hpf Urine RBC (Auto) 0-4 0-4 /hpf Urine Hyaline Casts (Auto) 1-5 0-5 /lpf Urine Epithelial Cells (Auto) 0-5 0-5 /lpf Urine Bacteria (Auto) 4+ NEG Urine Opiates Screen NEG NEG Urine Methadone, Qualitative NEG NEG Urine Barbiturates NEG NEG Urine Phencyclidine (PCP) Level NEG NEG Ur Amphetamine/Methamphetamine NEG NEG MDMA (Ecstasy) Screen NEG NEG Urine Benzodiazepines Screen NEG NEG Urine Cocaine Metabolite NEG NEG Urine Marijuana (THC) NEG NEG Bedside Glucose 122 70-99 mg/dl Microbiology Results 02/01/17 Blood Culture, Received Pending 02/01/17 Blood Culture, Received Pending 02/01/17 Urine Culture, Received Pending Diagnostic Radiology HEAD CT NONCONTRAST CT DOSE: 537.48 mGy.cm HISTORY: Mental status change Stroke TECHNIQUE: Multiaxial CT images of the head were performed without the use of intravenous contrast. Comparison: None. Findings: The paranasal sinuses and mastoid air cells are clear. Findings of chronic small vessel change of the right periventricular as well as deep white matter regions bilaterally. Several old cortical infarction most likely present. There is no evidence for acute intracranial hemorrhage. There is no midline shift. There is small old infarct in left basal ganglia and/or anterior left thalamus. Ventricular system is midline. Third and fourth ventricle and negative shift. Impression: 1. Several old right and to a lesser extent left periventricular infarct. 2. No acute intracranial abnormality. CHEST ONE VIEW PORTABLE CLINICAL HISTORY: Stroke mental status change COMPARISON STUDY: 01/30/2016 FINDINGS: Moderate increase in cardiac size compared to the prior study. Increase in pulmonary vascularity. Prior median sternotomy. Diaphragms smooth. Atelectasis medial right base. IMPRESSION: Congestive heart failure ULTRASOUND OF THE CAROTID ARTERIES CLINICAL HISTORY: Strokelike symptoms. COMPARISON STUDY: No priors. TECHNIQUE: Real-time, grayscale, and color Doppler sonography of the carotid arteries is performed. Images are reviewed in the transverse and longitudinal planes. The examination is significantly degraded by lack of patient cooperation. FINDINGS: Blood pressures were not assessed. The carotid arteries are patent bilaterally and demonstrate antegrade flow. There is moderate to advanced echogenic shadowing atherosclerotic plaque seen bilaterally. Normal doppler arterial waveforms are seen throughout. Velocity measurements are listed below. Common carotid peak systolic velocity (cm/sec): RIGHT: 82 LEFT: 79 ICA proximal peak systolic velocity (cm/sec): RIGHT: 82 LEFT: 102 ICA mid peak systolic velocity (cm/sec): RIGHT: 89 LEFT: 107 ICA distal peak systolic velocity (cm/sec): RIGHT: 89 LEFT: 125 ICA/CC peak systolic ratio: RIGHT: 1.1 LEFT: 1.6 Antegrade flow was shown in the vertebral arteries. The external carotid arteries are patent. Elevated velocities within the left external carotid artery suggests some degree of stenosis. IMPRESSION: 1. Atherosclerotic plaque with no sonographic evidence of hemodynamically significant stenosis in the right or left carotid arterial system. 2. Antegrade flow is shown in the vertebral arteries. LEFT FIRST TOE 3 VIEWS CLINICAL HISTORY: Cellulitis. FINDINGS: 3 views of the left first toe are obtained. No prior studies are available for comparison at the time of dictation. The skeletal structures are osteopenic. There is no radiographic evidence of fracture. There is bony erosion and cortical destruction seen involving the tuft of the first distal phalanx, typical in appearance for osteomyelitis. Significant soft tissue edema is present in the first toe. No subcutaneous gas is identified. Mild arthritic change is noted at the first metatarsophalangeal articulation. IMPRESSION: Findings are consistent with osteomyelitis involving the tuft of the first distal phalanx with overlying cellulitis. EKG V paced rhythm with occasional AV dual paced complexes, suspect unspecified pacemaker failure, as per cardiology read Impression Assessment and Plan ALTERED MENTAL STATUS WITH RIGHT FACIAL DROOP Possible TIA; rule out acute CVA; history of prior CVA with left side residual weakness Possible metabolic encephalopathy from hypoglycemia, infection Urine drug screen negative Initial CT head showed multiple old strokes, no acute findings Unable to obtain MRI as patient has pacemaker, also is uncooperative Check repeat CT head tomorrow am Check carotid doppler, echo with bubble study Continue aspirin and statin; Coumadin held for supratherapeutic INR Neuro checks Speech, PT, OT evaluations Consult neurology POSSIBLE SEIZURE ACTIVITY Check EEG Seizure precautions Start Keppra Consult neurology HYPOGLYCEMIA with HYPOTHERMIA Possibly due to underlying infection; has DM 2 not using insulin at home UA appears infected-> urine culture pending Has osteomyelitis of left great toe Blood cultures pending Received cefepime in ER Will give broad spectrum empiric abx- Vancomycin and Zosyn On chronic steroids for unknown reason- > Stress does steroids ordered Hypoglycemia improved after glucose given [employer] and dextrose given in ER Placed on D5 NSS at 75 cc/hour ISS while on IV steroids Consult pharmacy for glycemic control LEFT GREAT TOE OSTEOMYELITIS Antibiotic coverage noted above Consult infectious disease Consult orthopedic surgery UTI Antibiotic coverage noted above Urine culture pending [place] on CKD III Creat increased to 2.3 from baseline 2.0 Hold Lasix and spironolactone Continue IVF's Monitor renal function HYPOKALEMIA Replacement given; resolved Monitor PRP BORDERLINE BP Lasix and spironolactone held Metoprolol reduced from 25 mg ->12.5 mg daily PAROXYSMAL AFIB/ SINUS NODE DYSFUNCTION S/P PACEMAKER INR supratherapeutic Hold Coumadin; monitor INR Rate is controlled Metoprolol dose decreased from 25 ->12.5 mg daily Continue amiodarone Interrogate pacemaker CHRONIC DIASTOLIC CHF CXR shows congestive findings Appears compensated on exam Hold Lasix and spironolactone for now COPD WITH NOCTURNAL HYPOXEMIA Not in acute exacerbation Continue nocturnal O2 CHRONIC ANEMIA Hg 9.8; stable from baseline Family denies bleeding Monitor CBC CAD S/P CABG Continue aspirin, statin, beta ramona HYPOTHYROIDISM Continue levothyroxine DVT PROPHYLAXIS SCDs; hold Coumadin for supratherapeutic INR CODE STATUS DNR per my discussion with the son Malik Lora who is POA DISPOSITION Lives with family who report difficulty caring for him; they are interested in placement environmental services attendant consulted Patient seen in collaboration with Dr. Irizarry. Please see his addendum. VTE Prophylaxis VTE Risk Assessment Done? Y/N: Yes Risk Level: Moderate
[2017-02-02] MEDS: HYDROCORTISONE IV 50 MG in SYRINGE 0 ML IV SCH ×4 (03:08→20:23)
[2017-02-02] MEDS: PIPERACILL/TAZOBAC IV 4.5 GM in DEXTROSE 5% 100ML IV SCH ×3 (03:08→19:35)
[2017-02-02 04:31] LABS: BASO % 0.1 %; BASO ABS # 0.01 K/uL (0-0.2); EOS % 0.1 %; HEMATOCRIT 28.2 % (42-52); IG% 0.3 %; LYMPH ABS # 0.23 K/uL (1.2-3.4); MEAN CELL VOLUME 90.4 fL (80-100); MEAN CORPUSCULAR HEMOGLOBIN 27.9 pg (25-34); MEAN CORPUSCULAR HGB CONC 30.9 g/dl (32-36); MONO % 6.2 %; NEUT % 90.3 %; PLATELET COUNT 138 K/uL (130-400); RED BLOOD COUNT 3.12 M/uL (4.7-6.1); WHITE BLOOD COUNT 7.72 K/uL (4.8-10.8)
[2017-02-02 04:49] LABS: BUN/CREATININE RATIO 20.4 (10-20); CALCIUM 7.4 mg/dl (8.5-10.1); CREATININE 2.1 mg/dl (0.60-1.40); POTASSIUM 4.9 mmol/L (3.5-5.1)
[2017-02-02 04:52] LABS: CHOLESTEROL/HDL RATIO 1.7
[2017-02-02 04:54] LABS: PROTHROMBIN TIME (PATIENT) 76.6 SECONDS (9.0-12.0)
[2017-02-02 04:59] LABS: INR 6.6 (0.9-1.1)
[2017-02-02 05:07] LABS: ACANTHOCYTES 1+; COMPLETE YES; ECHINOCYTES 1+
[2017-02-02] MEDS: DEXTROSE 50% 50 ML SYR IV PRN (05:56)
[2017-02-02] MEDS: INSULIN ASPART 100 UNITS/ML 3 ML PEN SC SCH ×5 (07:06→21:00)
--- NOTE | 2017-02-02 08:04 | DIAGNOSTIC IMAGING REPORT ---
CT OF THE HEAD WITHOUT CONTRAST CLINICAL HISTORY: Transient ischemic attack. COMPARISON STUDY: Head CT February 01, 2017. CT DOSE: 1074.96 mGy.cm TECHNIQUE: Helical axial images of the head were obtained without IV contrast. Automated exposure control was utilized for the study. FINDINGS: No acute intracranial hemorrhage, midline shift or mass effect is present. Ventricular system is unremarkable. Basilar cisterns are patent. There are no extra-axial collections. Hypodensities within the right frontal lobe are unchanged and suggest old infarcts. There is an old lacunar infarct within the right cerebellar hemisphere. There is an old infarct within the left thalamus. There are no CT findings to suggest acute dural sinus thrombosis or acute territorial infarct. There is no calvarial fracture. There is mild mucosal thickening of the sinuses. There are postsurgical findings of the right globe. IMPRESSION: 1. No acute intracranial hemorrhage or mass effect. 2. Multiple infarcts, as described above. These are unchanged in appearance since exam of February 01, 2017 and likely old. Electronically signed by: Demetrius Maria M.D. 02/02/2017 8:03 AM Dictated Date/Time: 02/02/2017 7:59 AM
[2017-02-02] MEDS: D5W AND NSS 1,000 ML IV SCH ×2 (08:34→13:42)
[2017-02-02] MEDS: LEVETIRACETAM IV 500 MG in DEXTROSE 5% 100ML 100 ML IV SCH ×3 (08:34→22:52)
[2017-02-02] MEDS: AMIODARONE 200 MG TAB PO SCH (08:40)
[2017-02-02] MEDS: METOPROLOL TARTRATE 25 MG TAB PO SCH ×2 (08:40→22:53)
[2017-02-02] MEDS: ASPIRIN 81 MG ECTAB PO SCH (08:40)
[2017-02-02 09:00] VITALS: BP 141/60; PULSE 63; TEMP 36.4; O2SAT 96; BMI 35.9
[2017-02-02] MEDS ORDERED: METOPROLOL TARTRATE 25 MG TAB PO SCH (09:00)
[2017-02-02] MEDS: RISPERIDONE 0.5 MG TAB PO SCH ×2 (09:39→22:54)
[2017-02-02] MEDS: LEVOTHYROXINE 25 MCG TAB PO SCH (09:40)
[2017-02-02] MEDS: CITALOPRAM 20 MG TAB PO SCH (09:40)
--- NOTE | 2017-02-02 09:52 | Pharmacy Progress Note ---
Pharmacy Antibiotic Prog Note Date of Service: Feb 02, 2017. Subjective: The patient is currently receiving the following antimicrobials per Pharmacy consult: Vancomycin IV dosed per random level Zosyn 4.5 g IV every 8 hours Objective: Height (Feet): 5 Height (Inches): 7.00 Weight (Kilograms): 104.000 Levels: Item Value Date Time Random Vancomycin Level 17.4 mcg/ml 02/02/17 0425 Lab Results (24hrs): Laboratory Tests Test 02/01/17 14:30 02/01/17 19:00 02/02/17 04:25 BUN/Creatinine Ratio 23.1 22.5 20.4 Blood Urea Nitrogen 53 mg/dl 52 mg/dl 43 mg/dl Creatinine 2.30 mg/dl 2.30 mg/dl 2.10 mg/dl White Blood Count 10.16 K/uL 7.72 K/uL Red Blood Count 3.48 M/uL 3.12 M/uL Hemoglobin 9.8 g/dL 8.7 g/dL Hematocrit 31.4 % 28.2 % Mean Corpuscular Volume 90.2 fL 90.4 fL Mean Corpuscular Hemoglobin 28.2 pg 27.9 pg Mean Corpuscular Hemoglobin Concent 31.2 g/dl 30.9 g/dl Platelet Count 160 K/uL 138 K/uL Mean Platelet Volume 9.4 fL 9.0 fL Neutrophils (%) (Auto) 81.6 % 90.3 % Lymphocytes (%) (Auto) 7.0 % 3.0 % Monocytes (%) (Auto) 10.2 % 6.2 % Eosinophils (%) (Auto) 0.9 % 0.1 % Basophils (%) (Auto) 0.1 % 0.1 % Neutrophils # (Auto) 8.29 K/uL 6.97 K/uL Lymphocytes # (Auto) 0.71 K/uL 0.23 K/uL Monocytes # (Auto) 1.04 K/uL 0.48 K/uL Eosinophils # (Auto) 0.09 K/uL 0.01 K/uL Basophils # (Auto) 0.01 K/uL 0.01 K/uL Micro Results: Item Value Date Time Blood Culture Received 02/01/17 1708 Blood Pending Blood Culture Received 02/01/17 1705 Blood Pending Urine Culture - Preliminary Resulted 02/01/17 1546 Urine,Catheterized Proteus Species Assessment & Plan: Assessment 71 year old male receiving Vancomycin and Zosyn for treatment of left great toe osteomyelitis/cellulitis and Proteus UTI (sensitivities pending). Day # 2 of antimicrobial therapy. Plan Vancomycin IV * Random level this am is 17.4 mcg/mL. * Scr improved from 2.3 to 2.1 mg/dL today (baseline is reported to be ~1.7 mg/ dL). Patients half life is estimated to be ~20 hours based on current Scr but will likely improve to closer to 18 hours if Scr continues to improve. I am hesitant to start the patient on a scheduled maintenance dose at this time due to acute on chronic kidney failure, risk of nephrotoxicity with combination of vanc and zosyn, and elderly. * I will give a one time dose of 1600 mg (15 mg/kg) IV today and order a random level for 3/30 am (this will be ~18 hours after dose). Will likely be able to put patient on a scheduled maintenance dose at that time. * Goal trough level for osteo : 15 to 20 mcg/mL Piperacillin/tazobactam * Continue 4.5 g IV extended infusion every 8 hours for CrCl greater than 20 mL/ min Pharmacy will continue to follow and will adjust dose/frequency as necessary. Thank you
[2017-02-02] MEDS ORDERED: PHYTONADIONE 5 MG TAB PO ONE (10:30)
[2017-02-02] MEDS ORDERED: VANCOMYCIN INJ 1,600 MG in SODIUM CHLORIDE 0.9% 500ML 500 ML IV ONE (10:30)
[2017-02-02 11:38] VITALS: BP 141/60; PULSE 65; TEMP 36.4; O2SAT 96
--- NOTE | 2017-02-02 12:32 | INFECT. DISEASE CONSULTATION ---
DATE OF CONSULTATION: 02/02/2017 REQUESTING PHYSICIAN: Dr. Chester. HISTORY OF PRESENT ILLNESS: This is a 71-year-old gentleman who was admitted after he had a change in mental status yesterday. He was visited by family and they noticed that he had a significant decrease in mental status. 911 was called and he was found to have a blood sugar of 20. His blood sugar has improved and he has had improvement in his mental status. A CT of the head was unremarkable. As part of his workup, an x-ray was done of his foot as he does have a toe ulcer. This did show cellulitis and osteomyelitis. He does not have any previous imaging or culture data to review. He did have a positive UA in the hospital and his urine culture is growing proteus. Blood cultures are pending. He has not had a leukocytosis. He does have a history of multiple cardiac comorbidities and he has been undergoing chronic treatment for these. His son is present on my exam today and states that he had been stable prior to his acute change yesterday. On my examination, the patient remains disoriented but appears to be much more alert and interactive than he was on arrival to the hospital. He denies any fevers or chills. He states that he has had a prolonged toe ulceration and he has not previously been on antibiotics. He denies any bleeding or drainage from the area. He denies any pain. Currently, he denies chest pain, cough, or shortness of breath. He has no abdominal pain. He is somewhat combative on exam and his review of systems is limited secondary to this; however, the remaining is negative. PAST MEDICAL HISTORY: Significant for anemia, Afib, CHF, anticoagulation, chronic kidney disease, COPD, type 2 diabetes, diastolic CHF, GI bleed in the past, history of CVA in 2014, hyperlipidemia, hypertension, hypothyroidism, blindness, coronary artery disease with previous SD, pulmonary hypertension. PAST SURGICAL HISTORY: Significant for pacemaker insertion, mitral valve replacement, and history of CABG. FAMILY HISTORY: Noncontributory. SOCIAL HISTORY: Significant for tobacco use in the past. There is no alcohol or drug use. He is and lives with family. His son denies any recent sick contacts. ALLERGIES: He has no known drug allergies. CURRENT MEDICATIONS: Include Ativan, vancomycin, amiodarone, aspirin, Celexa, Lopressor, Synthroid, Keppra, Zosyn, hydrocortisone, insulin, Ultram, Lipitor, Protonix, Risperdal, Flomax, Ventolin, Tylenol and Zofran. PHYSICAL EXAMINATION: VITAL SIGNS: His current temperature is 36.4, it was low at 35.2 on arrival, he has not had any fevers. Pulse 65, respiratory rate 18, blood pressure 141/60, oxygen saturation is 96-97% on 2 liters nasal cannula. GENERAL: He is awake and alert but at times combative and not cooperative on exam. HEENT: Mucous membranes are moist. HEART: Regular. I do not auscultate a murmur. LUNGS: Clear bilaterally but there is poor inspiratory effort. ABDOMEN: Soft and nontender. EXTREMITIES: There is no lower extremity edema. Examination of the foot reveals left toe dry ulceration. There is no surrounding erythema, warmth, edema or tenderness. There is no drainage or bleeding. LABORATORY STUDIES: CBC today reveals a white blood cell count of 7.7, hemoglobin 8.7, and platelets are 138. Chemistry panel reveals a sodium of 141, potassium 4.9, chloride 105, bicarbonate 31, BUN 43, creatinine 2.1, glucose is between 60 and 160s. LFTs were normal on admission. Urinalysis has 10-30 WBCs and +4 bacteria. Urine drug screen was negative. A random vancomycin this morning is 17.4. Urine culture is growing proteus species. Blood cultures are pending. He also was found to be supratherapeutic with his Coumadin with an INR of 6.[address] again was unremarkable. Toe x-ray did show osteomyelitis at the first toe. A chest x-ray done on arrival showed congestive heart failure. ASSESSMENT AND PLAN: Left toe osteomyelitis. I do not see any drainage or any area that would be of benefit to culture at this time. He will remain on broad spectrum antibiotics pending the results of his blood cultures. His urine culture is growing proteus species; however, he does not have any urinary complaints on my examination. Certainly, infection could be due to hypoglycemia, whether this was secondary to medication and/or infection is unclear at this point. He may need to undergo vascular studies to better clarify source for toe ulceration and also response to antibiotics. We will follow along with you. Thank you for this consultation.
--- NOTE | 2017-02-02 12:35 | Pharmacy Progress Note ---
Glycemic Control: Progress Nt Date of Service Feb 02, 2017. Scope Glycemic Pharmacist consulted by Keke Pompa PA-C on 02/01/17 for glycemic control and to write orders per [facility] inpatient glycemic control protocol. Objective Accuchecks BSG (last 24hrs): Test 02/01/17 13:47 02/01/17 14:21 02/01/17 14:30 02/01/17 14:50 Bedside Glucose 106 mg/dl (70-99) 92 mg/dl (70-99) 74 mg/dl (70-99) Random Glucose 83 mg/dl (70-99) Test 02/01/17 16:40 02/01/17 17:19 02/01/17 19:00 02/01/17 22:23 Bedside Glucose 122 mg/dl (70-99) 124 mg/dl (70-99) 163 mg/dl (70-99) Random Glucose 132 mg/dl (70-99) Test 02/02/17 04:25 02/02/17 05:50 02/02/17 06:32 02/02/17 11:12 Random Glucose 80 mg/dl (70-99) Bedside Glucose 66 mg/dl (70-99) 105 mg/dl (70-99) 63 mg/dl (70-99) Laboratory Data (last 24hrs) Test 02/01/17 14:30 02/01/17 19:00 02/02/17 04:25 Anion Gap 8.0 mmol/L 7.0 mmol/L 5.0 mmol/L BUN/Creatinine Ratio 23.1 22.5 20.4 Blood Urea Nitrogen 53 mg/dl 52 mg/dl 43 mg/dl Creatinine 2.30 mg/dl 2.30 mg/dl 2.10 mg/dl Hemoglobin A1c 6.4 % Potassium Level 3.4 mmol/L 4.3 mmol/L 4.9 mmol/L Sodium Level 141 mmol/L 140 mmol/L 141 mmol/L White Blood Count 10.16 K/uL 7.72 K/uL Red Blood Count 3.48 M/uL 3.12 M/uL Hemoglobin 9.8 g/dL 8.7 g/dL Hematocrit 31.4 % 28.2 % Mean Corpuscular Volume 90.2 fL 90.4 fL Mean Corpuscular Hemoglobin 28.2 pg 27.9 pg Mean Corpuscular Hemoglobin Concent 31.2 g/dl 30.9 g/dl Platelet Count 160 K/uL 138 K/uL Mean Platelet Volume 9.4 fL 9.0 fL Neutrophils (%) (Auto) 81.6 % 90.3 % Lymphocytes (%) (Auto) 7.0 % 3.0 % Monocytes (%) (Auto) 10.2 % 6.2 % Eosinophils (%) (Auto) 0.9 % 0.1 % Basophils (%) (Auto) 0.1 % 0.1 % Neutrophils # (Auto) 8.29 K/uL 6.97 K/uL Lymphocytes # (Auto) 0.71 K/uL 0.23 K/uL Monocytes # (Auto) 1.04 K/uL 0.48 K/uL Eosinophils # (Auto) 0.09 K/uL 0.01 K/uL Basophils # (Auto) 0.01 K/uL 0.01 K/uL HbA1c: Test 02/01/17 14:30 Hemoglobin A1c 6.4 % (4.5-5.6) H Recent Pertinent Medications Outpatient Anti-diabetic Regimen: * Patient has not had insulin for several months as he has been refusing it. The patient is currently receiving: * Basal insulin: NONE - None ordered * Correctional Insulin: Novolog Correction per scale ACHS Goal Range: Low 140 mg/dL - High 180 mg/dL Correction Factor: 30 mg/dL/unit * Prandial insulin: None Ordered Risk Factors for Insulin Resistance: * Steroids * Infection * IVF Assessment & Plan ASSESSMENT: * 71yo T2DM male with adequately "diet controlled" diabetes per recent A1c * Pt has not received any insulin since admission but is having repeated non- critical "lows" * D5NS @ 75ml/hr currently running * Lows are surprising since, again, no insulin has been given and patient has multiple risk factors for insulin resistance (infection, dextrose, steroids) * Will loosen bolus insulin parameters to prevent insulin from being given unless needed for moderate-severe hyperglycemia. * ADA & AACE recommend a goal blood sugar range 140-180 mg/dl for the majority of critically ill & non-critically ill patients. However, more stringent targets may be selected in individual cases. PLAN FOR INPATIENT GLYCEMIC CONTROL: * NOVOLOG per scale ACHS or Q6hrs while NPO * Goal Range: Low 140 mg/dL - High 180 mg/dL * Correction Factor: 50 mg/dL/unit * No Nutritional / Prandial insulin needed * Please note that the plan above was derived based on current level of insulin resistance and hospital stress. These recommendations are appropriate for inpatient admission only. Plan of care upon discharge will need to be reassessed to avoid potential outpatient hypo/hyperglycemia. Thank you.
--- NOTE | 2017-02-02 14:14 | Progress Note ---
Progress Note Date of Service Feb 02, 2017. Progress Note ID Consult Dictated # [id number] A/P: 1. Toe osteo -Clinically stable, will need additional workup, follow bloodculture -willfollow.
[2017-02-02 15:02] VITALS: BMI 35.9
[2017-02-02] MEDS ORDERED: NURSING DECISION MEDICATION ORDER SCH (15:15)
--- NOTE | 2017-02-02 15:40 | CONSULTATION REPORT ---
DATE OF CONSULTATION: 02/02/2017 HISTORY OF PRESENT ILLNESS: The patient's consultation has been requested regarding a left great toe distal phalanx osteomyelitis. The patient's toe reveals some mild superficial cellulitis, very minimal necrosis at the tip. X-rays revealed there to be evidence of some lucencies in the region of the distal phalanx. Upon clinical examination debridement would no be of any benefit. I would recommend a trial of intravenous antibiotics. Will discuss this with medicine and recommend conservative management with antibiotics at this point and will follow if the surgical indication to be changed. We will make recommendations at that time. ASHLEY
[2017-02-02 15:45] VITALS: BP 117/76; PULSE 60; TEMP 36.5; O2SAT 98
--- NOTE | 2017-02-02 16:19 | Neurology Consultation ---
Neurology Consultation Date of Consultation: Feb 02, 2017. Attending Physician: Blayne Chester MD Primary Care Physician: Familia Biggs D.OAdela Reason for Consultation: AMS/R facial droop History of Present Illness Source: patient, hospital records Trell is a 71 year old male who had a CVA in 2014 which resulted in a left sided weakness, CAD, diastolic CHF, afib, SA node dysfunctions with pacemaker, HTN, DL, DM type 2. he had an episode of MS change and right facial droop. It is reported in the chart that he has been agitated and aggressive and having some visual hallucinations. last night he had a severe headache which resolved with aspirin. he ate his breakfast this am and had a loose BM. Around noon he became unresponsive and had a right facial droop which was witnessed by his grandson. When EMS arrived he had a blood sugar of 20. he received glucose [employer] [facility] and dextrose in the ED. The family states he is usually disoriented to date. He he then had a witnessed generalized shaking reported by his family and his blood sugar was then was 96. he has a cellulitis of his right GT for about 1 month. He is bedbound per family and requires assistance with all his ADLs. They have been looking into placement due to his disability. he has not had insulin for several months he has been refusing it. currently his is lying in bed and no family is in the room. he states he really doesn't want to be touched. he states he has had weakness of his left side since he had the stroke that almost "killed him" when he was flown by helicopter to [place]. denies CP, SOB, abdominal pain, N, V. Past Medical/Surgical History Medical Problems: (1) Acute kidney injury Status: Acute (2) Anemia Status: Acute (3) Sepsis Status: Acute (4) UTI (urinary tract infection) Status: Acute Social History Alcohol Use: none Drug Use: none Marital Status: Housing Status: lives with family Occupation Status: retired Allergies Coded Allergies: Fish Allergy (Verified Allergy, Unknown, ., 01/30/16) Current Inpatient Medications Current Inpatient Medications Medications (Trade) Dose Ordered Sig/Zoë Route Start Time Stop Time Status Last Admin Dose Admin Acetaminophen (Tylenol Tab) 650 mg Q4H PRN PO 02/01/17 16:45 03/03/17 16:44 Ondansetron HCl 4 mg 4 mg Q6H PRN IV 02/01/17 16:45 03/03/17 16:44 Dextrose/Sodium Chloride (D5W And Nss) 1,000 ml @ 75 mls/hr [id number] IV 02/01/17 17:15 03/03/17 17:14 02/02/17 13:42 75 MLS/HR Miscellaneous Information (Pharmacist Discharge Med Rec Consult) 1 ea UD PRN N/A 02/01/17 17:15 03/03/17 17:14 Albuterol (Ventolin Hfa Inhaler) 2 puffs Q4H PRN INH 02/01/17 17:30 03/03/17 17:29 Amiodarone HCl (Cordarone Tab) 400 mg QAM PO 02/02/17 09:00 03/04/17 08:59 02/02/17 08:40 400 MG Aspirin (Ecotrin Tab) 81 mg DAILY PO 02/02/17 09:00 03/04/17 08:59 02/02/17 08:40 81 MG Atorvastatin Calcium (Lipitor Tab) 80 mg HS PO 02/01/17 21:00 03/03/17 20:59 02/01/17 21:02 80 MG Levothyroxine Sodium (Synthroid Tab) 25 mcg DAILYBB PO 02/02/17 07:00 03/04/17 06:59 02/02/17 09:40 25 MCG Oxymetazoline HCl (Afrin 0.05% Nasal [place]) 1 sprays DAILY PRN EH 02/01/17 17:30 03/03/17 17:29 Pantoprazole Sodium (Protonix Tab) 40 mg HS PO 02/01/17 21:00 03/03/17 20:59 02/01/17 21:03 40 MG Risperidone (Risperdal Tab) 0.25 mg BID PO 02/01/17 21:00 03/03/17 20:59 02/02/17 09:39 0.25 MG Tamsulosin HCl (Flomax Cap) 0.4 mg HS PO 02/01/17 21:00 03/03/17 20:59 02/01/17 21:02 0.4 MG Citalopram Hydrobromide 10 mg 10 mg QAM PO 02/02/17 09:00 03/04/17 08:59 02/02/17 09:40 10 MG Hydrocortisone Sodium Succinate/ Syringe (Solu-Cortef IV/ Syringe) 1 ml @ 4 mls/min Q6H IV 02/02/17 02:00 03/04/17 01:59 02/02/17 08:39 4 MLS/MIN Glucose (Glucose 40% Gel) 15-30 GRAMS 15 GRAMS... UD PRN PO 02/01/17 17:30 03/03/17 17:29 Glucose (Glucose Chew Tab) 4-8 Tablets 4 Tabl... UD PRN PO 02/01/17 17:30 03/03/17 17:29 Dextrose (Dextrose 50% 50ML Syringe) 25-50ML OF 50% DW IV FOR... UD PRN IV 02/01/17 17:30 03/03/17 17:29 02/02/17 05:56 25 ML Glucagon (Glucagon Inj) 1 mg UD PRN SQ 02/01/17 17:30 03/03/17 17:29 Miscellaneous Information (Consult Glycemic Management Pharmacy) 1 ea UD N/A 02/01/17 17:31 03/03/17 17:30 Vancomycin HCl (Consult) 1 ea UD PRN N/A 02/01/17 18:22 03/03/17 18:21 Piperacillin Sod/ Tazobactam Sod 1 ea 1 ea UD PRN N/A 02/01/17 18:23 03/03/17 18:22 Levetiracetam 500 mg/Dextrose 105 ml @ 420 mls/hr Q12 IV 02/02/17 07:00 03/04/17 06:59 02/02/17 08:34 420 MLS/HR Piperacillin Sod/ Tazobactam Sod/ Dextrose (Zosyn Iv/D5 100ml) 120 ml @ 30 mls/hr Q8H IV 02/02/17 03:00 02/11/17 23:59 02/02/17 11:00 30 MLS/HR Tramadol HCl (Ultram Tab) 50 mg Q6H PRN PO 02/01/17 21:30 03/03/17 21:29 Lorazepam (Ativan Tab) 0.25 mg HS PO 02/02/17 21:00 03/04/17 20:59 Metoprolol Tartrate (Lopressor Tab) 12.5 mg BID PO 02/02/17 09:00 03/04/17 08:59 02/02/17 08:40 12.5 MG Insulin Aspart (novoLOG ASPART) SLIDING SCALE If C... ACHS SC 02/02/17 16:30 03/04/17 00:00 Physical Exam Vital Signs (Past 24 Hrs): Date Time Temp Pulse Resp B/P Pulse Ox O2 Delivery O2 Flow Rate FiO2 02/02/17 15:45 36.5 60 20 117/76 98 Nasal Cannula 2.0 02/02/17 11:38 36.4 65 18 96 2.0 02/02/17 10:34 65 02/02/17 09:00 36.4 63 18 141/60 96 Nasal Cannula 2.0 02/02/17 07:25 62 02/02/17 06:20 36.6 02/02/17 05:43 63 20 97 Nasal Cannula 2.0 02/02/17 05:12 63 02/02/17 02:50 62 20 141/60 100 Nasal Cannula 2.0 02/02/17 01:11 62 02/02/17 01:10 63 02/01/17 23:29 62 20 133/77 100 Nasal Cannula 2.0 02/01/17 22:19 62 114/55 100 Nasal Cannula 3.0 02/01/17 21:35 63 02/01/17 21:13 99/53 02/01/17 20:57 65 18 100 Room Air 02/01/17 18:51 65 20 98 Nasal Cannula 4.0 02/01/17 17:35 35.5 02/01/17 17:08 76 20 100 Nasal Cannula 3.0 02/01/17 16:45 71 gen: alert NAD PERRL/EOMI, miotic pupils lungs course BS CV RRR ecchymosis bilaterally UE and bleeding on right arm smile is symmetric, confused about date but does know he is in the hospital reflexes equal but will not allow exam of LE, states they "hurt" left GT with ulcer atrophy thenar prominence bilaterally Laboratory Results Past 24 Hours: 02/02/17 04:25 Red Blood Count 3.12, Mean Corpuscular Volume 90.4, Mean Corpuscular Hemoglobin 27.9, Mean Corpuscular Hemoglobin Concent 30.9, Mean Platelet Volume 9.0, Neutrophils (%) (Auto) 90.3, Lymphocytes (%) (Auto) 3.0, Monocytes (%) (Auto) 6.2, Eosinophils (%) (Auto) 0.1, Basophils (%) (Auto) 0.1, Neutrophils # (Auto) 6.97, Lymphocytes # (Auto) 0.23, Monocytes # (Auto) 0.48, Eosinophils # (Auto) 0.01, Basophils # (Auto) 0.01 02/02/17 04:25 Test 02/02/17 04:25 02/02/17 14:04 White Blood Count 7.72 K/uL (4.8-10.8) Red Blood Count 3.12 M/uL (4.7-6.1) Hemoglobin 8.7 g/dL (14.0-18.0) Hematocrit 28.2 % (42-52) Mean Corpuscular Volume 90.4 fL (80-100) Mean Corpuscular Hemoglobin 27.9 pg (25-34) Mean Corpuscular Hemoglobin Concent 30.9 g/dl (32-36) Platelet Count 138 K/uL (130-400) Mean Platelet Volume 9.0 fL (7.4-10.4) Neutrophils (%) (Auto) 90.3 % Lymphocytes (%) (Auto) 3.0 % Monocytes (%) (Auto) 6.2 % Eosinophils (%) (Auto) 0.1 % Basophils (%) (Auto) 0.1 % Neutrophils # (Auto) 6.97 K/uL (1.4-6.5) Lymphocytes # (Auto) 0.23 K/uL (1.2-3.4) Monocytes # (Auto) 0.48 K/uL (0.11-0.59) Eosinophils # (Auto) 0.01 K/uL (0-0.5) Basophils # (Auto) 0.01 K/uL (0-0.2) RDW Standard Deviation 52.9 fL (36.4-46.3) RDW Coefficient of Variation 16.0 % (11.5-14.5) Immature Granulocyte % (Auto) 0.3 % Immature Granulocyte # (Auto) 0.02 K/uL (0.00-0.02) Basophilic Stippling 1+ Echinocytes 1+ Acanthocytes 1+ Prothrombin Time 76.6 SECONDS (9.0-12.0) Prothromb Time International Ratio 6.6 (0.9-1.1) Anion Gap 5.0 mmol/L (3-11) Est Creatinine Clear Calc Drug Dose 36.0 ml/min Estimated GFR () 35.1 Estimated GFR (Non- 30.3 BUN/Creatinine Ratio 20.4 (10-20) Calcium Level 7.4 mg/dl (8.5-10.1) Triglycerides Level 50 mg/dl (0-150) Cholesterol Level 116 mg/dl (0-200) HDL Cholesterol 67 mg/dl LDL Cholesterol, Calculated 39 mg/dl VLDL Cholesterol, Calculated 10 mg/dl Cholesterol/HDL Ratio 1.7 Random Vancomycin Level 17.4 mcg/ml Bedside Glucose 75 mg/dl (70-99) Imaging carotid doppler- Atherosclerotic plaque with no sonographic evidence of hemodynamically significant stenosis in the right or left carotid arterial system. Antegrade flow is shown in the vertebral arteries. CT head -Several old right and to a lesser extent left periventricular infarct. No acute intracranial abnormality. repeat- CT head- FINDINGS: No acute intracranial hemorrhage, midline shift or mass effect is present. Ventricular system is unremarkable. Basilar cisterns are patent. There are no extra-axial collections. Hypodensities within the right frontal lobe are unchanged and suggest old infarcts. There is an old lacunar infarct within the right cerebellar hemisphere. There is an old infarct within the left thalamus. There are no CT findings to suggest acute dural sinus thrombosis or acute territorial infarct. There is no calvarial fracture. There is mild mucosal thickening of the sinuses. There are postsurgical findings of the right globe. Impression 71 year old male with AMS change and right sided facial droop s/p possible seizure Plan 1. started Keppra 500 mg BID -possible seizure activity- continue 2. osteo on Left GT and UTI treating with IV antibiotics 3. carotid doppler -with no significant stenosis 4. stop Ultram - can decrease seizure threshold 5. EEG - witnessed seizure 6. optimize blood pressure control and DM. 7. PT/OT and speech for discharge issues 8. may need higher level of care- currently living with family 9. unable to evaluate possible stroke with MRI due to pacemaker 10. Coumadin level will need to be adjusted. hyper therapeutic on admission- 6.6 I have seen and discussed above patient with Dr Sumi Stephens, neurology DW Dr Aguila. Pt was relatively unresp with R facial while pt glucose was 24. CT head unchanged. Sz described by family in ER lasting 5 min but did not notify staff. BS 30 min later was approx 120. Pt was loaded with Keppra. BS has been variable or low. Exam decreased NLF, Globally impaired vision bl mod L hemiparesis. Pt awake,a lert, disoriented, no aphasia. Imp. Initial focal neuro sx likely related to hypoglycemia, less likely primary ischemia. Subsequent sz in ER, family did not notify ER staff so difficult to know what glucose was at time. Pt does have risk for sz, so in absence of proven hypoglycemia at time of spell, have elected to treat with low dose keppra. REc carotid us re transient facial droop but see no sign of stroke. No evidence of ICH re increased INR SARY Stephens MD
--- NOTE | 2017-02-02 19:43 | Progress Note ---
Internal Med Progress Note Date of Service: Feb 02, 2017. Provider Documentation: SUBJECTIVE: Seems unhappy that he is hospital asks for food alert and oriented speech normal denies any pain afebrile OBJECTIVE: Vital Signs-as noted below Exam: General-alert and oriented x 2 Not in distress ENT-hard of hearing Neck-no neck masses Lungs-cta b/l no wheezing no crackles Heart-s1 and s2 heard regular rate and rhythm no murmurs' Abdomen-soft bowel sounds present non tender no distension Extremities-no edema no erythema LUE in dressing Neuro-alert and awake and oriented speech normal moves extremities Lab data as noted below. ASSESSMENT & PLAN: ALTERED MENTAL STATUS WITH RIGHT FACIAL DROOP Possible TIA; rule out acute CVA; history of prior CVA with left side residual weakness Metabolic encephalopathy from hypoglycemia, infection Seizures? Urine drug screen negative Initial CT head showed multiple old strokes, no acute findings repeat ct head today no acute findings Unable to obtain MRI secondary to pace maker Check carotid doppler unremarkable await echo on aspirin and statin; Coumadin held for supratherapeutic INR started on Keppra by neurology Neuro checks Seen by Speech PT, OT evaluations appreciate neurology inputs POSSIBLE SEIZURE ACTIVITY await EEG Seizure precautions Started Keppra Consulted neurology HYPOGLYCEMIA with HYPOTHERMIA Possibly due to underlying infection; has DM 2 not using insulin at home On chronic steroids for unknown reason- > Stress does steroids ordered on D5 NSS at 75 cc/hour ISS while on IV steroids Consulted pharmacy for glycemic control will monitor LEFT GREAT TOE OSTEOMYELITIS on iv vanco and zosyn Consulted infectious disease Consulted orthopedic surgery UTI proteus on zosyn [place] on CKD III Creat increased to 2.3 from baseline 2.0 Holding Lasix and spironolactone on gentle IVF's cr 2.1 today will f/u labs HYPOKALEMIA Replacement given; resolved Monitor PRP BORDERLINE BP Lasix and spironolactone held Metoprolol reduced from 25 mg ->12.5 mg daily will monitor PAROXYSMAL AFIB/ SINUS NODE DYSFUNCTION S/P PACEMAKER INR supratherapeutic Holding Coumadin; monitor INR Rate is controlled Metoprolol dose decreased from 25 ->12.5 mg daily on amiodarone Interrogate pacemaker will monitor CHRONIC DIASTOLIC CHF CXR shows congestive findings Appears compensated on exam Holding Lasix and spironolactone for now will monitor for volume overload COPD WITH NOCTURNAL HYPOXEMIA Not in acute exacerbation Continue nocturnal O2 CHRONIC ANEMIA Hg 9.8; stable from baseline Family denies bleeding will monitor CBC CAD S/P CABG stable on aspirin, statin, beta ramona HYPOTHYROIDISM Continue levothyroxine follow thyroid profile Supra therapeutic INR from warfarin holding Coumadin' vitamin k 2.5mg given f/u inr DVT PROPHYLAXIS SCDs; holding Coumadin for supratherapeutic INR CODE STATUS DNR per H and P DISPOSITION To be determined Vital Signs: Date Time Temp Pulse Resp B/P Pulse Ox O2 Delivery O2 Flow Rate FiO2 02/02/17 15:45 36.5 60 20 117/76 98 Nasal Cannula 2.0 02/02/17 11:38 36.4 65 18 96 2.0 02/02/17 10:34 65 02/02/17 09:00 36.4 63 18 141/60 96 Nasal Cannula 2.0 02/02/17 07:25 62 02/02/17 06:20 36.6 02/02/17 05:43 63 20 97 Nasal Cannula 2.0 02/02/17 05:12 63 02/02/17 02:50 62 20 141/60 100 Nasal Cannula 2.0 02/02/17 01:11 62 02/02/17 01:10 63 02/01/17 23:29 62 20 133/77 100 Nasal Cannula 2.0 02/01/17 22:19 62 114/55 100 Nasal Cannula 3.0 02/01/17 21:35 63 02/01/17 21:13 99/53 02/01/17 20:57 65 18 100 Room Air Lab Results: Results Past 24 Hours Test 02/01/17 22:23 02/02/17 04:25 02/02/17 05:50 02/02/17 06:32 Range/Units Bedside Glucose 163 66 105 70-99 mg/dl White Blood Count 7.72 4.8-10.8 K/uL Red Blood Count 3.12 4.7-6.1 M/uL Hemoglobin 8.7 14.0-18.0 g/dL Hematocrit 28.2 42-52 % Mean Corpuscular Volume 90.4 80-100 fL Mean Corpuscular Hemoglobin 27.9 25-34 pg Mean Corpuscular Hemoglobin Concent 30.9 32-36 g/dl Platelet Count 138 130-400 K/uL Mean Platelet Volume 9.0 7.4-10.4 fL Neutrophils (%) (Auto) 90.3 % Lymphocytes (%) (Auto) 3.0 % Monocytes (%) (Auto) 6.2 % Eosinophils (%) (Auto) 0.1 % Basophils (%) (Auto) 0.1 % Neutrophils # (Auto) 6.97 1.4-6.5 K/uL Lymphocytes # (Auto) 0.23 1.2-3.4 K/uL Monocytes # (Auto) 0.48 0.11-0.59 K/uL Eosinophils # (Auto) 0.01 0-0.5 K/uL Basophils # (Auto) 0.01 0-0.2 K/uL RDW Standard Deviation 52.9 36.4-46.3 fL RDW Coefficient of Variation 16.0 11.5-14.5 % Immature Granulocyte % (Auto) 0.3 % Immature Granulocyte # (Auto) 0.02 0.00-0.02 K/uL Basophilic Stippling 1+ Echinocytes 1+ Acanthocytes 1+ Prothrombin Time 76.6 9.0-12.0 SECONDS Prothromb Time International Ratio 6.6 0.9-1.1 Sodium Level 141 136-145 mmol/L Potassium Level 4.9 3.5-5.1 mmol/L Chloride Level 105 98-107 mmol/L Carbon Dioxide Level 31 21-32 mmol/L Anion Gap 5.0 3-11 mmol/L Blood Urea Nitrogen 43 7-18 mg/dl Creatinine 2.10 0.60-1.40 mg/dl Est Creatinine Clear Calc Drug Dose 36.0 ml/min Estimated GFR () 35.1 Estimated GFR (Non- 30.3 BUN/Creatinine Ratio 20.4 10-20 Random Glucose 80 70-99 mg/dl Calcium Level 7.4 8.5-10.1 mg/dl Triglycerides Level 50 0-150 mg/dl Cholesterol Level 116 0-200 mg/dl HDL Cholesterol 67 mg/dl LDL Cholesterol, Calculated 39 mg/dl VLDL Cholesterol, Calculated 10 mg/dl Cholesterol/HDL Ratio 1.7 Random Vancomycin Level 17.4 mcg/ml Test 02/02/17 11:12 02/02/17 13:19 02/02/17 13:41 02/02/17 14:04 Range/Units Bedside Glucose 63 55 57 75 70-99 mg/dl Test 3/29/17 16:18 02/02/17 17:58 02/02/17 18:49 Range/Units Bedside Glucose 55 88 56 70-99 mg/dl
[2017-02-02] MEDS: GLUCOSE 40% GEL 15 GM TUBE PO PRN (20:22)
[2017-02-02] MEDS: TAMSULOSIN HCL 0.4 MG CAP PO SCH (22:52)
[2017-02-02] MEDS: LORAZEPAM 0.5 MG TAB PO SCH (22:52)
[2017-02-02] MEDS: ATORVASTATIN 40 MG TAB PO SCH (22:53)
[2017-02-02] MEDS: PANTOprazole SOD 40 MG TAB PO SCH (22:54)
[2017-02-03] VITALS (16 sets, daily range): BP systolic 108–145; BP diastolic 64–79; PULSE 62–64; TEMP 36.2–36.6; O2SAT 97–100; Ht 170.2 cm; Wt 104.0 kg
[2017-02-03] MEDS: DEXTROSE 50% 50 ML SYR IV PRN ×4 (00:16→22:16)
[2017-02-03] MEDS: D5W AND NSS 1,000 ML IV SCH ×3 (02:09→10:56)
[2017-02-03] MEDS: PIPERACILL/TAZOBAC IV 4.5 GM in DEXTROSE 5% 100ML IV SCH ×3 (03:23→20:27)
[2017-02-03] MEDS: HYDROCORTISONE IV 50 MG in SYRINGE 0 ML IV SCH ×4 (03:24→20:26)
[2017-02-03] MEDS: LEVOTHYROXINE 25 MCG TAB PO SCH (06:15)
[2017-02-03 08:52] LABS: HEMATOCRIT 24.3 % (42-52); IG% 0.1 %; LYMPH % 3.2 %; LYMPH ABS # 0.23 K/uL (1.2-3.4); MEAN CELL VOLUME 90.7 fL (80-100); MEAN CORPUSCULAR HEMOGLOBIN 27.6 pg (25-34); MEAN CORPUSCULAR HGB CONC 30.5 g/dl (32-36); MEAN PLATELET VOLUME 9.7 fL (7.4-10.4); MONO % 5.7 %; PLATELET COUNT 139 K/uL (130-400); RED BLOOD COUNT 2.68 M/uL (4.7-6.1); WHITE BLOOD COUNT 7.25 K/uL (4.8-10.8)
[2017-02-03 09:00] LABS: PROTHROMBIN TIME (PATIENT) 46.7 SECONDS (9.0-12.0)
[2017-02-03 09:04] LABS: INR 4.1 (0.9-1.1)
[2017-02-03 09:14] LABS: BUN/CREATININE RATIO 20.6 (10-20); CALCIUM 7.5 mg/dl (8.5-10.1); CREATININE 1.9 mg/dl (0.60-1.40); POTASSIUM 4.4 mmol/L (3.5-5.1)
[2017-02-03 09:24] LABS: THYROID STIMULATING HORMONE 1.21 uIu/ml (0.300-4.500)
[2017-02-03] MEDS: LEVETIRACETAM IV 500 MG in DEXTROSE 5% 100ML 100 ML IV SCH ×2 (09:40→22:40)
[2017-02-03] MEDS: ASPIRIN 81 MG ECTAB PO SCH (09:41)
[2017-02-03] MEDS: AMIODARONE 200 MG TAB PO SCH (09:41)
[2017-02-03] MEDS: CITALOPRAM 20 MG TAB PO SCH (09:42)
[2017-02-03] MEDS: RISPERIDONE 0.5 MG TAB PO SCH ×2 (09:42→22:49)
[2017-02-03] MEDS: METOPROLOL TARTRATE 25 MG TAB PO SCH ×2 (09:44→22:44)
--- NOTE | 2017-02-03 10:01 | Pharmacy Progress Note ---
Pharmacy Antibiotic Prog Note Date of Service: Feb 03, 2017. Subjective: The patient is currently receiving VANOMCYCIN IV and ZOSYN IV. The patient is currently on day # 3 of therapy. Objective: Height (Feet): 5 Height (Inches): 7.00 Weight (Kilograms): 104.000 Levels: Item Value Date Time Random Vancomycin Level 19.5 mcg/ml 02/03/17 0808 Lab Results (24hrs): Laboratory Tests Test 02/03/17 08:08 BUN/Creatinine Ratio 20.6 Blood Urea Nitrogen 39 mg/dl Creatinine 1.90 mg/dl White Blood Count 7.25 K/uL Red Blood Count 2.68 M/uL Hemoglobin 7.4 g/dL Hematocrit 24.3 % Mean Corpuscular Volume 90.7 fL Mean Corpuscular Hemoglobin 27.6 pg Mean Corpuscular Hemoglobin Concent 30.5 g/dl Platelet Count 139 K/uL Mean Platelet Volume 9.7 fL Neutrophils (%) (Auto) 91.0 % Lymphocytes (%) (Auto) 3.2 % Monocytes (%) (Auto) 5.7 % Eosinophils (%) (Auto) 0.0 % Basophils (%) (Auto) 0.0 % Neutrophils # (Auto) 6.60 K/uL Lymphocytes # (Auto) 0.23 K/uL Monocytes # (Auto) 0.41 K/uL Eosinophils # (Auto) 0.00 K/uL Basophils # (Auto) 0.00 K/uL Micro Results: * 02/01 -- Blood Cx x 2 -- NGTD x 2 * 02/01 -- Urine Cx -- Proteus (S-Zosyn) Recent Pertinent Medications: Item Value Date Time Vancomycin HCl 532 ml @ 200 mls/hr 02/02/17 1030 1600 mg/Sodium 1030 ONCE/IV 02/02/17 1104 Chloride Piperacillin Sod/ 120 ml @ 30 mls/hr 02/02/17 0300 Tazobactam Sod Q8H/IV 02/03/17 0323 4.5 gm/Dextrose Assessment & Plan: 71yo male admitted with L great toe osteo+cellulitis and UTI. Ordered ZOSYN and VANCOMYCIN. VANCOMYCIN: * Patient has been receiving VANCOMYCIN IV empirically based on levels due to elevated SCr on admission and underlying CKD. * Last dose was VANCOMYCIN 1600mg (~15mg/kg) administered yesterday (3/29) ~ 1100. * Random VANCOMYCIN level drawn @ 08 this am = 19.5 mcg/mL. * SCr has been decreasing back toward baseline slowly (2.3 -> 2.1 -> 1.9). * Will now start patient on VANCOMYCIN 1600mg IV q24h and adjust as needed as renal function changes. * Will recheck a trough level after 3 doses. Pharmacy will continue to follow and will adjust dose/frequency as necessary. Thank you
[2017-02-03 10:25] LABS: ACANTHOCYTES 1+; COMPLETE YES; ECHINOCYTES 1+; POLYCHROMASIA 1+
[2017-02-03 10:55] LABS: FERRITIN 324.1 ng/ml (8.0-388.0)
--- NOTE | 2017-02-03 11:38 | Pharmacy Progress Note ---
Glycemic Control: Progress Nt Date of Service Feb 03, 2017. Scope Glycemic Pharmacist consulted by JOSE LUIS Farley on 02/01/17 for glycemic control and to write orders per [facility] inpatient glycemic control protocol. Objective Accuchecks BSG (last 24hrs): Test 02/02/17 13:19 02/02/17 13:41 02/02/17 14:04 02/02/17 16:18 Bedside Glucose 55 mg/dl (70-99) 57 mg/dl (70-99) 75 mg/dl (70-99) 55 mg/dl (70-99) Test 02/02/17 17:58 02/02/17 18:49 02/02/17 20:05 02/02/17 21:32 Bedside Glucose 88 mg/dl (70-99) 56 mg/dl (70-99) 52 mg/dl (70-99) 46 mg/dl (70-99) Test 02/03/17 00:38 02/03/17 02:12 02/03/17 03:08 02/03/17 04:33 Bedside Glucose 90 mg/dl (70-99) 61 mg/dl (70-99) 73 mg/dl (70-99) 57 mg/dl (70-99) Test 02/03/17 05:28 02/03/17 07:21 02/03/17 08:08 02/03/17 08:28 Bedside Glucose 83 mg/dl (70-99) 46 mg/dl (70-99) 108 mg/dl (70-99) Random Glucose 182 mg/dl (70-99) Laboratory Data (last 24hrs) Test 02/03/17 08:08 Anion Gap 7.0 mmol/L BUN/Creatinine Ratio 20.6 Blood Urea Nitrogen 39 mg/dl Creatinine 1.90 mg/dl Potassium Level 4.4 mmol/L Sodium Level 138 mmol/L White Blood Count 7.25 K/uL Red Blood Count 2.68 M/uL Hemoglobin 7.4 g/dL Hematocrit 24.3 % Mean Corpuscular Volume 90.7 fL Mean Corpuscular Hemoglobin 27.6 pg Mean Corpuscular Hemoglobin Concent 30.5 g/dl Platelet Count 139 K/uL Mean Platelet Volume 9.7 fL Neutrophils (%) (Auto) 91.0 % Lymphocytes (%) (Auto) 3.2 % Monocytes (%) (Auto) 5.7 % Eosinophils (%) (Auto) 0.0 % Basophils (%) (Auto) 0.0 % Neutrophils # (Auto) 6.60 K/uL Lymphocytes # (Auto) 0.23 K/uL Monocytes # (Auto) 0.41 K/uL Eosinophils # (Auto) 0.00 K/uL Basophils # (Auto) 0.00 K/uL HbA1c: Test 02/01/17 14:30 Hemoglobin A1c 6.4 % (4.5-5.6) H Recent Pertinent Medications Outpatient Anti-diabetic Regimen: * None - was supposed to be on insulin but has not taken in over a year The patient is currently receiving: * Basal insulin: None * Correctional Insulin: Novolog Correction per scale ACHS Goal Range: Low 140 mg/dL - High 180 mg/dL Correction Factor: 50 mg/dL/unit * Prandial insulin: None * Oral Agents: None Risk Factors for Insulin Resistance: * Steroids: hydrocortisone 50 mg IV q6h * Infection: on vancomycin and Zosyn for L toe osteo * IVF: D5NS @ 125 cc/hr * Diet: AHA/type 2 diabetes Assessment & Plan ASSESSMENT: * ADA & AACE recommend a goal blood sugar range 140-180 mg/dl for the majority of critically ill & non-critically ill patients. However, more stringent targets may be selected in individual cases. From 02/02/17 note: * 71yo T2DM male with adequately "diet controlled" diabetes per recent A1c * Pt has not received any insulin since admission but is having repeated non- critical "lows" * D5NS @ 75ml/hr currently running * Lows are surprising since, again, no insulin has been given and patient has multiple risk factors for insulin resistance (infection, dextrose, steroids) * Will loosen bolus insulin parameters to prevent insulin from being given unless needed for moderate-severe hyperglycemia. 02/03/17: * Mr. Lora has continued to have hypoglycemia (some severe episodes) overnight into this AM * Dextrose IVFs have been increased to 125 cc/hr and patient has remained w/o insulin * Unsure of the reason for sustained hypoglycemia. A review of medications for a potential adverse reaction reveals the metoprolol or Zosyn to be possible causes but this is highly unlikely * Hypoglycemia from beta blockers is usually caused by non-selective beta blockers; in addition, the patient has been receiving metoprolol for quite some time * Hypoglycemia from Zosyn occurs in < 1% of patients * Regardless of the cause, I will plan to place the Novolog on hold for now to prevent any insulin given at this time PLAN FOR INPATIENT GLYCEMIC CONTROL: * HOLD Novolog insulin for now * If BSGs become significantly elevated, please d/c dextrose from IVFs * Can consider resuming correctional Novolog once BSGs improve (> 180 mg/dL OFF dextrose IVFs) RECOMMENDATIONS FOR DISCHARGE: * A1c acceptable without medications for diabetes * Continue off diabetes medications Thank you.
[2017-02-03] MEDS: VANCOMYCIN INJ 1,600 MG in SODIUM CHLORIDE 0.9% 500ML 500 ML IV SCH (12:33)
[2017-02-03 14:24] LABS: HEMATOCRIT 24.8 % (42-52)
--- NOTE | 2017-02-03 15:02 | Progress Note ---
Subjective Date of Service: Feb 03, 2017. Subjective blood cultures negative, urine culture with proteus species. afebrile. wbc nml. vanco level elevated, creat improving, blood sugar remains low. tolerating abx. Problem List Medical Problems: (1) Acute kidney injury Status: Acute (2) Anemia Status: Acute (3) Sepsis Status: Acute (4) UTI (urinary tract infection) Status: Acute Objective Vital Signs Date Time Temp Pulse Resp B/P Pulse Ox O2 Delivery O2 Flow Rate FiO2 02/03/17 09:04 36.4 62 18 145/79 97 4.0 02/03/17 08:00 98 Nasal Cannula 2.0 02/03/17 04:30 Nasal Cannula 2.0 02/03/17 00:34 36.6 62 18 108/64 98 4.0 02/02/17 16:00 Nasal Cannula 2.0 02/02/17 15:45 36.5 60 20 117/76 98 Nasal Cannula 2.0 Laboratory Results Item Value Date Time Blood Culture - Preliminary Resulted 02/01/17 1708 Blood NO GROWTH TO DATE. Blood Culture - Preliminary Resulted 02/01/17 1705 Blood NO GROWTH TO DATE. Urine Culture - Final Complete 02/01/17 1546 Urine,Catheterized Proteus Vulgaris Last 24 Hours Test 02/02/17 16:18 02/02/17 16:51 02/02/17 17:12 02/02/17 17:58 Bedside Glucose 55 mg/dl 52 mg/dl 59 mg/dl 88 mg/dl Test 02/02/17 18:49 02/02/17 20:05 02/02/17 20:52 02/02/17 21:32 Bedside Glucose 56 mg/dl 52 mg/dl 34 mg/dl 46 mg/dl Test 02/02/17 22:16 02/02/17 22:49 02/03/17 00:10 02/03/17 00:38 Bedside Glucose 44 mg/dl 44 mg/dl 61 mg/dl 90 mg/dl Test 02/03/17 02:12 02/03/17 03:08 02/03/17 04:33 02/03/17 05:28 Bedside Glucose 61 mg/dl 73 mg/dl 57 mg/dl 83 mg/dl Test 02/03/17 07:21 02/03/17 08:08 02/03/17 08:28 02/03/17 10:40 Bedside Glucose 46 mg/dl 108 mg/dl White Blood Count 7.25 K/uL Red Blood Count 2.68 M/uL Hemoglobin 7.4 g/dL Hematocrit 24.3 % Mean Corpuscular Volume 90.7 fL Mean Corpuscular Hemoglobin 27.6 pg Mean Corpuscular Hemoglobin Concent 30.5 g/dl Platelet Count 139 K/uL Mean Platelet Volume 9.7 fL Neutrophils (%) (Auto) 91.0 % Lymphocytes (%) (Auto) 3.2 % Monocytes (%) (Auto) 5.7 % Eosinophils (%) (Auto) 0.0 % Basophils (%) (Auto) 0.0 % Neutrophils # (Auto) 6.60 K/uL Lymphocytes # (Auto) 0.23 K/uL Monocytes # (Auto) 0.41 K/uL Eosinophils # (Auto) 0.00 K/uL Basophils # (Auto) 0.00 K/uL RDW Standard Deviation 53.9 fL RDW Coefficient of Variation 16.2 % Immature Granulocyte % (Auto) 0.1 % Immature Granulocyte # (Auto) 0.01 K/uL Polychromasia 1+ Echinocytes 1+ Acanthocytes 1+ Prothrombin Time 46.7 SECONDS Prothromb Time International Ratio 4.1 Sodium Level 138 mmol/L Potassium Level 4.4 mmol/L Chloride Level 103 mmol/L Carbon Dioxide Level 28 mmol/L Anion Gap 7.0 mmol/L Blood Urea Nitrogen 39 mg/dl Creatinine 1.90 mg/dl Est Creatinine Clear Calc Drug Dose 39.8 ml/min Estimated GFR () 39.7 Estimated GFR (Non- 34.2 BUN/Creatinine Ratio 20.6 Random Glucose 182 mg/dl Calcium Level 7.5 mg/dl Iron Level 65 mcg/dl Total Iron Binding Capacity 208 mcg/dl Transferrin 174 mg/dl Transferrin % Saturation 27 % Ferritin 324.1 ng/ml Thyroid Stimulating Hormone (TSH) 1.210 uIu/ml Free Thyroxine 1.25 ng/dl Free Triiodothyronine 1.15 pg/ml Random Vancomycin Level 19.5 mcg/ml Vitamin B12 Level 606 pg/mL Folate 10.96 ng/mL Test 02/03/17 11:53 02/03/17 12:37 02/03/17 13:13 02/03/17 13:47 Bedside Glucose 45 mg/dl 57 mg/dl 68 mg/dl 48 mg/dl Test 02/03/17 14:10 02/03/17 14:25 Hemoglobin 7.6 g/dL Hematocrit 24.8 % Bedside Glucose 110 mg/dl Assessment and Plan (1) Osteomyelitis Assessment & Plan: can continue abx for now, doubt blood cultures will be +, will need vascular eval.
[2017-02-03] MEDS ORDERED: PHYTONADIONE INJ 2.5 MG in SODIUM CHLORIDE 0.9% 50ML 50 ML IV ONE (16:00)
[2017-02-03] MEDS ORDERED: FUROSEMIDE INJ 20 MG in SYRINGE 0 ML IV SCH (18:00)
[2017-02-03] MEDS ORDERED: ACETAMINOPHEN 325 MG TAB PO SCH (18:00)
--- NOTE | 2017-02-03 18:23 | ELECTROENCEPHALOGRAPH REPORT ---
CLINICAL DIAGNOSIS: Possible seizures. EEG DIAGNOSIS: Mildly abnormal EEG with some nonspecific symmetrical bifrontal increased slow wave activity in the theta delta range. DESCRIPTION OF TRACING: This EEG was done as a bedside recording on a patient who is described as irritable. A simultaneous video analysis of patient movement and behavior does demonstrate some movements which do correlate at times with some artifacts on EEG. Photic stimulation was performed. Hyperventilation was not. Drowsiness and light sleep are not clearly recorded. During wakefulness, there appears to be evidence for a background rhythm in the alpha range of about 9 Hz of maximum frequency and 30 microvolts of maximum amplitude. This is maximum posterior head regions and bilaterally symmetrical. Polymorphic mid to slightly lower frequency theta activity is seen over the central regions and in the frontal areas in a fairly symmetrical fashion, there is evidence for a shift of the theta activity in the slower rates, i.e., 5-6 Hz and occasionally intermixed with some waveforms in the delta range which are nonrhythmic. Anterior head region bilaterally symmetrical low voltage fast activity is occasionally seen as well. Photic stimulation provoked some minimal driving response without a photomyogenic or photoparoxysmal component. At no time during the waking tracing is there evidence for clearcut potentially epileptogenic activity in the form of polyspike or spike wave bursts, focal sharp waves of focal spikes. INTERPRETATION: This EEG reveals evidence for mild highly nonspecific and symmetrical bifrontal slow wave activity of uncertain significance. There is nothing; however, about the tracing does suggest a clearcut lateralize of slow wave focus or potentially epileptogenic activity.
--- NOTE | 2017-02-03 18:50 | Progress Note ---
Internal Med Progress Note Date of Service: Feb 03, 2017. Provider Documentation: SUBJECTIVE: says he is doing ok afebrile denies any pain eating ok family in room and says he was not taking insulin lately and he is mostly diet controlled diabetes OBJECTIVE: Vital Signs-as noted below Exam: General-alert and oriented x 2 Not in distress ENT-hard of hearing Neck-no neck masses Lungs-cta b/l no wheezing no crackles Heart-s1 and s2 heard regular rate and rhythm no murmurs' Abdomen-soft bowel sounds present non tender no distension Extremities-no edema no erythema Neuro-alert and awake and oriented speech normal moves extremities Lab data as noted below. ASSESSMENT & PLAN: ALTERED MENTAL STATUS WITH RIGHT FACIAL DROOP Possible TIA; rule out acute CVA; history of prior CVA with left side residual weakness Metabolic encephalopathy from hypoglycemia, infection Seizures? Urine drug screen negative Initial CT head showed multiple old strokes, no acute findings repeat ct head today no acute findings Unable to obtain MRI secondary to pace maker carotid doppler unremarkable await echo on aspirin and statin; Coumadin held for supratherapeutic INR started on Keppra by neurology Neuro checks Seen by Speech PT, OT evaluations eeg non specific mostly from hypoglycemia continuation or taper off of Keppra as per neurology. appreciate neurology inputs POSSIBLE SEIZURE ACTIVITY EEG non specific Seizure precautions Started Keppra Consulted neurology HYPOGLYCEMIA Possibly due to underlying infection; has DM 2 not using insulin at home On chronic steroids for unknown reason- > Stress does steroids ordered received D5 NSS d/w Endocrinology to stop fluids and monitor. will red/w endo if still hypoglycemic. LEFT GREAT TOE OSTEOMYELITIS on iv vanco and zosyn Consulted infectious disease Consulted orthopedic surgery consulted vascular UTI proteus on zosyn [place] on CKD III Creat increased to 2.3 from baseline 2.0 Holding Lasix and spironolactone on gentle IVF's cr 1.9 today will f/u labs HYPOKALEMIA Replacement given; resolved Monitor PRP BORDERLINE BP Lasix and spironolactone held Metoprolol reduced from 25 mg ->12.5 mg daily will monitor PAROXYSMAL AFIB/ SINUS NODE DYSFUNCTION S/P PACEMAKER INR supratherapeutic Holding Coumadin; monitor INR Rate is controlled Metoprolol dose decreased from 25 ->12.5 mg daily on amiodarone Interrogate pacemaker will monitor CHRONIC DIASTOLIC CHF CXR shows congestive findings Appears compensated on exam Holding Lasix and spironolactone for now will monitor for volume overload off of diuretics COPD WITH NOCTURNAL HYPOXEMIA Not in acute exacerbation Continue nocturnal O2 CHRONIC ANEMIA Hg 9.8 on presentation stable from baseline Family denies bleeding hb 7.6 today transfusion two units prbc will check stool studies and iron studies CAD S/P CABG stable on aspirin, statin, beta ramona HYPOTHYROIDISM Continue levothyroxine follow thyroid profile Supra therapeutic INR from warfarin holding Coumadin' vitamin k given f/u inr DVT PROPHYLAXIS SCDs; holding Coumadin for supratherapeutic INR and anemia CODE STATUS DNR per H and P DISPOSITION To be determined Vital Signs: Date Time Temp Pulse Resp B/P Pulse Ox O2 Delivery O2 Flow Rate FiO2 02/03/17 17:28 36.2 64 18 118/66 100 Nasal Cannula 2.0 02/03/17 17:08 36.6 62 18 119/75 100 Nasal Cannula 2.0 02/03/17 17:02 36.3 63 18 137/76 100 Nasal Cannula 2.0 02/03/17 09:04 36.4 62 18 145/79 97 4.0 02/03/17 08:00 98 Nasal Cannula 2.0 02/03/17 04:30 Nasal Cannula 2.0 02/03/17 00:34 36.6 62 18 108/64 98 4.0 Lab Results: Results Past 24 Hours Test 02/02/17 18:49 02/02/17 20:05 02/02/17 20:52 02/02/17 21:32 Range/Units Bedside Glucose 56 52 34 46 70-99 mg/dl Test 02/02/17 22:16 02/02/17 22:49 02/03/17 00:10 02/03/17 00:38 Range/Units Bedside Glucose 44 44 61 90 70-99 mg/dl Test 02/03/17 02:12 02/03/17 03:08 02/03/17 04:33 02/03/17 05:28 Range/Units Bedside Glucose 61 73 57 83 70-99 mg/dl Test 02/03/17 07:21 02/03/17 08:08 02/03/17 08:28 02/03/17 10:40 Range/Units Bedside Glucose 46 108 70-99 mg/dl White Blood Count 7.25 4.8-10.8 K/uL Red Blood Count 2.68 4.7-6.1 M/uL Hemoglobin 7.4 14.0-18.0 g/dL Hematocrit 24.3 42-52 % Mean Corpuscular Volume 90.7 80-100 fL Mean Corpuscular Hemoglobin 27.6 25-34 pg Mean Corpuscular Hemoglobin Concent 30.5 32-36 g/dl Platelet Count 139 130-400 K/uL Mean Platelet Volume 9.7 7.4-10.4 fL Neutrophils (%) (Auto) 91.0 % Lymphocytes (%) (Auto) 3.2 % Monocytes (%) (Auto) 5.7 % Eosinophils (%) (Auto) 0.0 % Basophils (%) (Auto) 0.0 % Neutrophils # (Auto) 6.60 1.4-6.5 K/uL Lymphocytes # (Auto) 0.23 1.2-3.4 K/uL Monocytes # (Auto) 0.41 0.11-0.59 K/uL Eosinophils # (Auto) 0.00 0-0.5 K/uL Basophils # (Auto) 0.00 0-0.2 K/uL RDW Standard Deviation 53.9 36.4-46.3 fL RDW Coefficient of Variation 16.2 11.5-14.5 % Immature Granulocyte % (Auto) 0.1 % Immature Granulocyte # (Auto) 0.01 0.00-0.02 K/uL Polychromasia 1+ Echinocytes 1+ Acanthocytes 1+ Prothrombin Time 46.7 9.0-12.0 SECONDS Prothromb Time International Ratio 4.1 0.9-1.1 Sodium Level 138 136-145 mmol/L Potassium Level 4.4 3.5-5.1 mmol/L Chloride Level 103 98-107 mmol/L Carbon Dioxide Level 28 21-32 mmol/L Anion Gap 7.0 3-11 mmol/L Blood Urea Nitrogen 39 7-18 mg/dl Creatinine 1.90 0.60-1.40 mg/dl Est Creatinine Clear Calc Drug Dose 39.8 ml/min Estimated GFR () 39.7 Estimated GFR (Non- 34.2 BUN/Creatinine Ratio 20.6 10-20 Random Glucose 182 70-99 mg/dl Calcium Level 7.5 8.5-10.1 mg/dl Iron Level 65 35-175 mcg/dl Total Iron Binding Capacity 208 250-450 mcg/dl Transferrin 174 200-360 mg/dl Transferrin % Saturation 27 20-50 % Ferritin 324.1 8.0-388.0 ng/ml Thyroid Stimulating Hormone (TSH) 1.210 0.300-4.500 uIu/ml Free Thyroxine 1.25 0.80-1.60 ng/dl Free Triiodothyronine 1.15 2.30-4.20 pg/ml Random Vancomycin Level 19.5 mcg/ml Vitamin B12 Level 606 211-911 pg/mL Folate 10.96 >5.38 ng/mL Test 02/03/17 11:53 02/03/17 12:37 02/03/17 13:13 02/03/17 13:47 Range/Units Bedside Glucose 45 57 68 48 70-99 mg/dl Test 02/03/17 14:10 02/03/17 14:25 02/03/17 16:36 Range/Units Hemoglobin 7.6 14.0-18.0 g/dL Hematocrit 24.8 42-52 % Bedside Glucose 110 70 70-99 mg/dl
--- NOTE | 2017-02-03 19:08 | PROGRESS NOTE ---
DATE: 02/03/2017 SUBJECTIVE: Mr. Lora comes today in followup with an episode of unresponsiveness with the right facial droop in the setting of profound hypoglycemia. I spoke to the patient's son today to have a description of the event, which was noted in the Emergency Room. Apparently, the patient would intermittently stare and/or be confused and then eventually resulting in stiffening up and shaking bilaterally, lasting several minutes. The nurses were not alerted, although the son indicates they came in and out during this time frame and apparently did not make any note of any abnormal behavior. His blood sugar was not checked, I believe until about half an hour later, at which time it was normal. His blood sugars here have fluctuated widely including being 46 at 7:21 this morning and then 182 at 8:08, 45 at 11:53, 48 at 1347 and then 110 at 1425. PHYSICAL EXAMINATION: GENERAL: The patient is awake and alert. His speech is mildly dysarthric. I agree that there is some marginal flattening of the right nasolabial fold. There is an old left hemiparesis which is at baseline. IMPRESSION: This patient had a change in mental status and a flattened right nasolabial fold in the setting of hypoglycemia. The flattened nasolabial fold is persistent and very possibly reflects a very small lacunar infarction. I think that distinction is academic as it does not change his anticoagulant or antiplatelet status. Once he is not supraanticoagulated, aspirin will be resumed. He has no high-grade carotid stenosis. I am highly suspicious that the episode within the Emergency Room represented hypoglycemia, given his ongoing persistent episodic hypoglycemia with apparent normal blood sugars within relatively short periods of time. I have discussed with the son that his EEG looks normal, we will stop Keppra and monitor. If he were to have another episode without clear hypoglycemia, Keppra would be restarted. We will follow with you. ASHLEY
[2017-02-03] MEDS: GLUCOSE 40% GEL 15 GM TUBE PO PRN (20:03)
[2017-02-03] MEDS ORDERED: DEXTROSE 5% 1000ML 1,000 ML IV SCH (20:15)
[2017-02-03] MEDS ORDERED: DEXTROSE 50% 50 ML SYR IV ONE (22:15)
[2017-02-03] MEDS ORDERED: DEXTROSE 10% 1,000 ML IV SCH (22:30)
[2017-02-03] MEDS: LORAZEPAM 0.5 MG TAB PO SCH (22:42)
[2017-02-03] MEDS: ATORVASTATIN 40 MG TAB PO SCH (22:43)
[2017-02-03] MEDS: TAMSULOSIN HCL 0.4 MG CAP PO SCH (22:43)
[2017-02-03] MEDS: PANTOprazole SOD 40 MG TAB PO SCH (22:49)
[2017-02-04 00:20] VITALS: BP 120/77; PULSE 64; TEMP 36.3; O2SAT 100
[2017-02-04 01:20] VITALS: BP 147/73; PULSE 65; TEMP 36.3; O2SAT 100
[2017-02-04] MEDS: HYDROCORTISONE IV 50 MG in SYRINGE 0 ML IV SCH ×4 (01:36→21:06)
[2017-02-04] MEDS: PIPERACILL/TAZOBAC IV 4.5 GM in DEXTROSE 5% 100ML IV SCH ×3 (03:34→18:24)
[2017-02-04 04:11] LABS: COMPLETE YES; HEMATOCRIT 31.2 % (42-52); IG% 0.5 %; LYMPH % 1.7 %; LYMPH ABS # 0.14 K/uL (1.2-3.4); MEAN CELL VOLUME 91.2 fL (80-100); MEAN CORPUSCULAR HEMOGLOBIN 29.2 pg (25-34); MEAN CORPUSCULAR HGB CONC 32.1 g/dl (32-36); MEAN PLATELET VOLUME 9.9 fL (7.4-10.4); NEUT % 90.8 %; PLATELET COUNT 130 K/uL (130-400); RED BLOOD COUNT 3.42 M/uL (4.7-6.1); WHITE BLOOD COUNT 8.45 K/uL (4.8-10.8)
[2017-02-04 04:17] LABS: INR 1.8 (0.9-1.1); PROTHROMBIN TIME (PATIENT) 19.7 SECONDS (9.0-12.0)
[2017-02-04 04:33] LABS: BUN/CREATININE RATIO 16.4 (10-20); CALCIUM 7.4 mg/dl (8.5-10.1); POTASSIUM 4.4 mmol/L (3.5-5.1)
[2017-02-04] MEDS ORDERED: DEXTROSE 50% 50 ML SYR IV ONE (05:00)
[2017-02-04] MEDS: LEVOTHYROXINE 25 MCG TAB PO SCH (05:58)
[2017-02-04] MEDS ORDERED: DEXTROSE 10% 1,000 ML IV SCH (06:00)
[2017-02-04 08:00] VITALS: BP 130/76; PULSE 66; TEMP 36.3; O2SAT 98
[2017-02-04] MEDS: RISPERIDONE 0.5 MG TAB PO SCH ×2 (08:10→21:22)
[2017-02-04] MEDS: ASPIRIN 81 MG ECTAB PO SCH (08:10)
[2017-02-04] MEDS: METOPROLOL TARTRATE 25 MG TAB PO SCH ×2 (08:11→21:23)
[2017-02-04] MEDS: CITALOPRAM 20 MG TAB PO SCH (08:11)
[2017-02-04] MEDS: AMIODARONE 200 MG TAB PO SCH (08:12)
[2017-02-04] MEDS: LEVETIRACETAM IV 500 MG in DEXTROSE 5% 100ML 100 ML IV SCH ×2 (08:18→21:12)
--- NOTE | 2017-02-04 09:36 | Surgery Consultation ---
Consultation Date of Service Feb 04, 2017. Chief Complaint L great toe osteomyelitis History of Present Illness The patient is a 71 year old male with hx of multiple medical problems, including HTN, CAD, A fib, hypothyroidism, DMII, seen in consultation today for vascular status of LLE d/t osteomyelitis noted on x ray of L great toe. Pt denies any pain in toe, states his toenail fell off. Pt denies BRISENO, fever, chills, chest pain, SOB, abd pain, N/V, rest pain, claudication, other complaints. States he only ambulates very short distance, basically to transfer , and has 24 hr care. Vitals Vital Signs Past 12 Hours Date Time Temp Pulse Resp B/P Pulse Ox O2 Delivery O2 Flow Rate FiO2 02/04/17 01:20 36.3 65 20 147/73 100 2.0 02/04/17 00:20 36.3 64 18 120/77 100 2.0 02/04/17 00:00 Nasal Cannula 2.0 02/03/17 23:22 36.3 62 18 129/75 100 Nasal Cannula 2.0 02/03/17 23:20 36.3 62 20 127/74 100 2.0 02/03/17 22:50 36.3 63 20 129/75 100 2.0 02/03/17 22:35 36.3 63 20 112/73 99 2.0 02/03/17 22:21 36.2 63 18 110/71 100 2.0 Allergies Coded Allergies: Fish Allergy (Verified Allergy, Unknown, ., 01/30/16) Home Medications Scheduled Amiodarone Hcl (Cordarone), 200 TAB PO QAM Aspirin (Aspirin Ec), 81 MG PO DAILY Atorvastatin (Lipitor), 80 MG PO HS Citalopram Hydrobromide (Citalopram Hydrobromide), 10 MG PO DAILY Furosemide (Lasix), 40 MG PO QAM Insulin Aspart (Novolog Flexpen), 0-10 UNITS SC SLIDING SCALE. Levothyroxine Sodium (Levothyroxine Sodium), 25 MCG PO DAILY Lorazepam (Ativan), 0.5 MG PO HS Metoprolol Tartrate (Lopressor) (Lopressor), 25 MG PO QAM Oxygen (Oxygen), 2 LITERS NA HS Pantoprazole (Protonix), 40 MG PO HS Prednisone Tab (Prednisone), 10 MG PO Q2D Risperidone (Risperdal), 0.25 MG PO BID Spironolactone (Spironolactone), 25 MG PO QAM Tamsulosin Hcl (Flomax), 0.4 MG PO HS Warfarin Sod (Novtoven), 5 MG PO DAILY ON TUESDAY Warfarin Sod (Novtoven), 2.5 MG PO [id number] Scheduled PRN Albuterol Hfa (Ventolin Hfa), 2 PUFFS INH Q4H PRN for SOB/Wheezing Docusate Sodium (Stool Softener), 100 MG PO DAILY PRN for Constipation Oxymetazoline Hcl (Afrin), 1 SPRAY EH DAILY PRN for Nasal Congestion Zolpidem Tartrate (Ambien), 5 MG PO HS PRN for Sleep Problem List Medical Problems: (1) Altered mental status (2) Anemia Nos (3) Atrial Fibrillation (4) CHF (congestive heart failure) (5) Chronic anticoagulation (6) CKD (chronic kidney disease), stage III (7) COPD (chronic obstructive pulmonary disease) (8) Diab W Neuro Manifest, Type Ii Or Unspec Type, Not Uncntrld (9) Diastolic CHF (10) GI bleed (11) History of stroke (12) Hyperlipidemia Nec/Nos (13) Hypertension Nos (14) Hypoglycemia (15) Hypothyroidism (16) Legal blindness (17) Myocardial infarct (18) Osteomyelitis (19) Pacemaker (20) Pulmonary hypertension (21) SA node dysfunction (22) Shortness of breath (23) Urin Tract Infection Nos Surgical Problems: (1) H/O mitral valve replacement (2) Heart valve replaced (3) Hx of CABG Surgical / Medical History Hx Abdominal Surgery: No Hx Cancer Surgery: No Hx Thoracic Surgery: No Hx Orthopedic: No Hx Urinary Tract Surgery: No Past Medical/Surgical History: Diabetes, Heart Disease, High Cholesterol, Hypertension Family History Diabetes mellitus FH: lung disease FHx: cancer FHx: heart disease Hypertension Social History Smoking Status: Former Smoker Hx Tobacco Use In Past Year?: No Hx Alcohol Use - Type & Amnt: No Hx Substance Use -Type & Amnt: No Review of Systems Constitutional: No chills, No fever, No malaise Eyes: No visual changes ENMT: No sore throat Respiratory: No BURK, No cough, No hemoptysis, No short of breath Cardiovascular: No chest pain, No edema, No intermittent claudication, No palpitations, No syncope Gastrointestinal: No abdominal pain, No nausea, No vomiting Neurologic: No dizziness, No headache, No lethargy, No numbness, No tingling Physical Exam Constitutional: General Apperance: well-nourished Level of Distress: NAD, acutely ill, chronically ill Psychiatric: Mental Status: active & alert, abnormal affect, agitated Orientation: oriented except where noted, to time, to place, to person Memory: recent memory abnormal (vague, poor historian), remote memory abnormal Head: normocephalic, atraumatic Eyes: EOM: EOMI ENMT: normal ENT inspection, hearing grossly normal Neck: supple, trachea midline Lungs: Respiratory effort: no dyspnea Auscultation: no rales/crackles, no rhonchi, decreased breath sounds Cardiovascular: Apical Impulse: not displaced Heart Auscultation: no rubs, no gallops, pertinent finding (irregular) Peripheral Pulses: Pulses: full and equal, in all extremities except if noted Bruits: none appreciated Carotid Pulse: normal on the left, normal on the right Brachial Pulses: normal on the left, normal on the right Radial Pulse: normal on the left, normal on the right Femoral Pulse: decreased on the left, decreased on the right Posterior Tibialis Pulse: decreased on the left, decreased on the right Dorsalis Pedis Pulse: decreased on the right, pertinent finding ( nonpalpable LLE) Abdomen: Bowel Sounds: normal Inspection & Palpation: soft, non-distended, no tenderness, guarding & rebound Musculoskeletal: normal strength (5/5 throughout), normal tone Extremities: Upper Right: no cyanosis, no edema, no varicosities Upper Left: no cyanosis, no edema, no varicosities Lower Right: no cyanosis, no varicosities, no palpable cord, edema (trace) Lower Left: no cyanosis, no varicosities, no palpable cord, edema (trace), pertinent finding (L great toe distally with erythema, warmth, edema, skin cracked with black scabs noted over portions of toenail area) Neurologic: Cranial Nerves: grossly intact Sensation: grossly intact Assessment and Plan ASSESSMENT and PLAN: L great toe osteomyelitis PAD Pt with likely some PAD by exam, although foot not ischemic. Discussed with Dr Guzmán, recommends arterial US of LLE to eval vasc status.
[2017-02-04] MEDS: DEXTROSE 5% 1000ML 1,000 ML IV SCH ×2 (10:42→21:04)
--- NOTE | 2017-02-04 10:54 | Progress Note ---
Subjective Date of Service: Feb 04, 2017. Subjective INR and blood sugars much improved, tolerating abx. urine culture with proteus, sensitive to zosyn, on day #3 abx. vasc eval noted, for arterial studies. blood cultures negative. no wound culture obtained but had no drainage. Problem List Medical Problems: (1) Acute kidney injury Status: Acute (2) Anemia Status: Acute (3) Sepsis Status: Acute (4) UTI (urinary tract infection) Status: Acute Objective Vital Signs Date Time Temp Pulse Resp B/P Pulse Ox O2 Delivery O2 Flow Rate FiO2 02/04/17 08:00 36.3 66 20 130/76 98 02/04/17 08:00 Nasal Cannula 2.0 02/04/17 01:20 36.3 65 20 147/73 100 2.0 02/04/17 00:20 36.3 64 18 120/77 100 2.0 02/04/17 00:00 Nasal Cannula 2.0 02/03/17 23:22 36.3 62 18 129/75 100 Nasal Cannula 2.0 02/03/17 23:20 36.3 62 20 127/74 100 2.0 02/03/17 22:50 36.3 63 20 129/75 100 2.0 02/03/17 22:35 36.3 63 20 112/73 99 2.0 02/03/17 22:21 36.2 63 18 110/71 100 2.0 02/03/17 21:05 36.2 64 20 115/68 98 2.0 02/03/17 20:05 36.4 63 20 113/69 100 2.0 02/03/17 19:34 36.6 63 20 111/70 100 2.0 02/03/17 19:18 36.5 62 20 116/73 100 2.0 02/03/17 19:03 36.4 62 20 114/75 100 02/03/17 17:28 36.2 64 18 118/66 100 Nasal Cannula 2.0 02/03/17 17:08 36.6 62 18 119/75 100 Nasal Cannula 2.0 02/03/17 17:02 36.3 63 18 137/76 100 Nasal Cannula 2.0 02/03/17 16:00 Nasal Cannula 2.0 Laboratory Results Item Value Date Time Blood Culture - Preliminary Resulted 02/01/17 1705 Blood NO GROWTH TO DATE. Blood Culture - Preliminary Resulted 02/01/17 1708 Blood NO GROWTH TO DATE. Urine Culture - Final Complete 02/01/17 1546 Urine,Catheterized Proteus Vulgaris Last 24 Hours Test 02/03/17 11:53 02/03/17 12:37 02/03/17 13:13 02/03/17 13:47 Bedside Glucose 45 mg/dl 57 mg/dl 68 mg/dl 48 mg/dl Test 02/03/17 14:10 02/03/17 14:25 02/03/17 16:36 02/03/17 19:50 Hemoglobin 7.6 g/dL Hematocrit 24.8 % Bedside Glucose 110 mg/dl 70 mg/dl 29 mg/dl Test 02/03/17 20:41 02/03/17 21:22 02/03/17 22:00 02/03/17 22:05 Bedside Glucose 28 mg/dl 106 mg/dl 54 mg/dl Test 02/03/17 23:00 02/03/17 23:10 02/04/17 01:03 02/04/17 01:50 Stool Occult Blood NEGATIVE Bedside Glucose 106 mg/dl 69 mg/dl 70 mg/dl Test 02/04/17 02:52 02/04/17 03:55 02/04/17 04:59 02/04/17 07:24 Bedside Glucose 73 mg/dl 75 mg/dl 147 mg/dl White Blood Count 8.45 K/uL Red Blood Count 3.42 M/uL Hemoglobin 10.0 g/dL Hematocrit 31.2 % Mean Corpuscular Volume 91.2 fL Mean Corpuscular Hemoglobin 29.2 pg Mean Corpuscular Hemoglobin Concent 32.1 g/dl Platelet Count 130 K/uL Mean Platelet Volume 9.9 fL Neutrophils (%) (Auto) 90.8 % Lymphocytes (%) (Auto) 1.7 % Monocytes (%) (Auto) 7.0 % Eosinophils (%) (Auto) 0.0 % Basophils (%) (Auto) 0.0 % Neutrophils # (Auto) 7.68 K/uL Lymphocytes # (Auto) 0.14 K/uL Monocytes # (Auto) 0.59 K/uL Eosinophils # (Auto) 0.00 K/uL Basophils # (Auto) 0.00 K/uL RDW Standard Deviation 54.7 fL RDW Coefficient of Variation 16.5 % Immature Granulocyte % (Auto) 0.5 % Immature Granulocyte # (Auto) 0.04 K/uL Prothrombin Time 19.7 SECONDS Prothromb Time International Ratio 1.8 Sodium Level 139 mmol/L Potassium Level 4.4 mmol/L Chloride Level 105 mmol/L Carbon Dioxide Level 29 mmol/L Anion Gap 5.0 mmol/L Blood Urea Nitrogen 33 mg/dl Creatinine 2.00 mg/dl Est Creatinine Clear Calc Drug Dose 37.8 ml/min Estimated GFR () 37.3 Estimated GFR (Non- 32.2 BUN/Creatinine Ratio 16.4 Random Glucose 60 mg/dl Calcium Level 7.4 mg/dl 25-Hydroxy Vitamin D Total 10.3 ng/ml Test 02/04/17 09:02 Bedside Glucose 156 mg/dl Assessment and Plan (1) Osteomyelitis Assessment & Plan: can continue IV abx for now, blood cultures negative to date , doubt they will become + and no wound culture done as no drainage noted, abx will be emperic in this patient. await vascular studies, if he does require any procedure/debridement while inpatient, would obtain wound culture however, he has had multiple days of broad spectrum abx. If no plans for wound debridement inpatient would suggest doxycycline po x 21 days at d/c. suspect he will require outpt follow up for wound. will hold on levaquin as pt is on amio.
[2017-02-04] MEDS: VANCOMYCIN INJ 1,600 MG in SODIUM CHLORIDE 0.9% 500ML 500 ML IV SCH (12:13)
--- NOTE | 2017-02-04 14:33 | PROGRESS NOTE ---
DATE: 02/04/2017 SUBJECTIVE: I returned to see Trell Lora today, but unfortunately he was off on the floor for an arterial study. He was brought into our Emergency Room with hypoglycemia and may or may not have had a brief tonic clonic seizure, reported by the family as a late report and addressed in a delayed fashion by placing him on Keppra and doing an EEG. EEG is normal. He seems to be coming around clinically, no further seizure activity has been seen and Dr. Stephens appropriately stopped Keppra and does elect to observe him. His blood sugars have fluctuated a bit and hopefully that will straighten out. Right now, neurology is going to observe him for recurrent seizure activity and I will check with him tomorrow. Hopefully, he will be on the floor at that time for an assessment. Thus far, we have seen no evidence for new cerebrovascular accident or indeed have any other explanation for his event than the hypoglycemia, which is pretty well documented. ASHLEY
[2017-02-04 15:19] LABS: HEMATOCRIT 31.4 % (42-52)
--- NOTE | 2017-02-04 15:22 | Pharmacy Progress Note ---
Pharmacy Antibiotic Prog Note Date of Service: Feb 04, 2017. Subjective: The patient is currently receiving vancomycin 1600 mg iv q 24 hrs and zosyn 4.5 gm ivq 8 hrs The patient is currently on day #4 of IV therapy. Objective: Height (Feet): 5 Height (Inches): 7.00 Weight (Kilograms): 104.000 Lab Results (24hrs): Laboratory Tests Test 02/04/17 03:55 BUN/Creatinine Ratio 16.4 Blood Urea Nitrogen 33 mg/dl Creatinine 2.00 mg/dl White Blood Count 8.45 K/uL Red Blood Count 3.42 M/uL Hemoglobin 10.0 g/dL Hematocrit 31.2 % Mean Corpuscular Volume 91.2 fL Mean Corpuscular Hemoglobin 29.2 pg Mean Corpuscular Hemoglobin Concent 32.1 g/dl Platelet Count 130 K/uL Mean Platelet Volume 9.9 fL Neutrophils (%) (Auto) 90.8 % Lymphocytes (%) (Auto) 1.7 % Monocytes (%) (Auto) 7.0 % Eosinophils (%) (Auto) 0.0 % Basophils (%) (Auto) 0.0 % Neutrophils # (Auto) 7.68 K/uL Lymphocytes # (Auto) 0.14 K/uL Monocytes # (Auto) 0.59 K/uL Eosinophils # (Auto) 0.00 K/uL Basophils # (Auto) 0.00 K/uL Assessment & Plan: Patient receiving vancomycin and zosyn for cellulitis/osteo of L great toe. ID is consulted to follow patient. Vancomycin: * Trough level was supratherapeutic at 23 mcg/ml (goal 15-20 mcg/ml) * Will decrease dose to 1250 mg iv q 24 hrs to achieve an estimated trough between 15-20 mcg/ml * Scr appears to remain stable at ~2 mg/dL (CrCl ~38 ml/min today) * Will wait to order another trough since patient may be transitioned to oral therapy soon * Per ID note, if patient does not require any debridement would recommend doxycycline po x 21 days Zosyn: * 4.5 gm iv q 8 hrs ; appropriate for CrCl >20 ml/min, no changes necessary Pharmacy will continue to follow and will adjust dose/frequency as necessary. Thank you
--- NOTE | 2017-02-04 15:58 | DIAGNOSTIC IMAGING REPORT ---
ULTRASOUND ART DOP LOWER EXT BILAT CLINICAL HISTORY: PAD, toe wound peripheral vascular disease COMPARISON STUDY: Limited study due to the patient's body habitus. FINDINGS: Real-time as well as Doppler evaluation of the arterial structures of the lower legs was performed. Waveforms are triphasic within the right thigh. There are biphasic within the left thigh. Monophasic waveforms are identified from the distal left superficial and common femoral artery to the level of the feet. Velocities are increased at the level of the distal superficial femoral artery as well as popliteal. Velocities waveforms are within the right thigh are unremarkable. There are monophasic waveforms in the popliteal inferior to the right foot The following blood pressure indices were obtained. On the right, posterior tibial is 0.87 and dorsalis pedis is 0.61. On the left, posterior tibial is 0.77 and dorsalis pedis is 0.41. IMPRESSION: 1. Findings consistent with multifocal arterial occlusive change. 2. Waveforms are monophasic from the popliteal arteries distally to the level of the feet bilaterally. 3. Findings suggesting a significant stenotic process of the left superficial femoral artery in the distal thigh as well as popliteal 4. Dampened waveforms of the 3 runoff vessels of the lower legs bilaterally suggesting compromised flow status. Electronically signed by: Jake Barbosa M.D. 02/04/2017 3:56 PM Dictated Date/Time: 02/04/2017 3:52 PM
[2017-02-04 16:06] VITALS: BP 112/75; PULSE 63; TEMP 36.3; O2SAT 97
--- NOTE | 2017-02-04 19:01 | Progress Note ---
Internal Med Progress Note Date of Service: Feb 04, 2017. Provider Documentation: SUBJECTIVE: resting comfortably eating good has some pain in left foot afebrile no sob legally blind OBJECTIVE: Vital Signs-as noted below Exam: General-alert and oriented x 2 Not in distress ENT-hard of hearing Neck-no neck masses Lungs-cta b/l no wheezing no crackles Heart-s1 and s2 heard regular rate and rhythm no murmurs' Abdomen-soft bowel sounds present non tender no distension Extremities-no edema no erythema Neuro-alert and awake and oriented speech normal moves extremities Lab data as noted below. ASSESSMENT & PLAN: ALTERED MENTAL STATUS WITH RIGHT FACIAL DROOP Possible TIA; rule out acute CVA; history of prior CVA with left side residual weakness Metabolic encephalopathy from hypoglycemia, infection Seizures? Urine drug screen negative Initial CT head showed multiple old strokes, no acute findings repeat ct head today no acute findings Unable to obtain MRI secondary to pace maker carotid doppler unremarkable await echo on aspirin and statin; Coumadin held for supratherapeutic INR started on Keppra by neurology Neuro checks Seen by Speech PT, OT evaluations eeg non specific mostly from hypoglycemia continuation or taper off of Keppra as per neurology. appreciate neurology inputs stable currently will d/w neurology regarding stopping of keppra POSSIBLE SEIZURE ACTIVITY EEG non specific Seizure precautions Started Keppra Consulted neurology plan to stop keppra HYPOGLYCEMIA Possibly due to underlying infection; has DM 2 not using insulin at home On chronic steroids for unknown reason- > Stress does steroids ordered received D5 NSS d/w Endocrinology sugars coming up on d5w will monitor LEFT GREAT TOE OSTEOMYELITIS on iv vanco and zosyn Consulted infectious disease Consulted orthopedic surgery consulted vascular and appreciate inputs UTI proteus on zosyn [place] on CKD III Creat increased to 2.3 from baseline 2.0 Holding Lasix and spironolactone on gentle IVF's cr 2.0 today will f/u labs HYPOKALEMIA Replacement given; resolved Monitor PRP BORDERLINE BP Lasix and spironolactone held Metoprolol reduced from 25 mg ->12.5 mg daily improving and will restart diuretics PAROXYSMAL AFIB/ SINUS NODE DYSFUNCTION S/P PACEMAKER INR supratherapeutic Holding Coumadin; monitor INR Rate is controlled Metoprolol dose decreased from 25 ->12.5 mg daily on amiodarone Interrogate pacemaker will monitor CHRONIC DIASTOLIC CHF CXR shows congestive findings Appears compensated on exam Holding Lasix and spironolactone for now will monitor for volume overload as on fluids restart diuretics COPD WITH NOCTURNAL HYPOXEMIA Not in acute exacerbation Continue nocturnal O2 CHRONIC ANEMIA Hg 9.8 on presentation stable from baseline Family denies bleeding hb 7.6 01/07/17 transfused two units prbc hb 10 today will check stool studies and iron studies CAD S/P CABG stable on aspirin, statin, beta ramona HYPOTHYROIDISM Continue levothyroxine follow thyroid profile Supra therapeutic INR from warfarin holding Coumadin' vitamin k given f/u inr DVT PROPHYLAXIS SCDs; holding Coumadin for supratherapeutic INR and anemia CODE STATUS DNR per H and P DISPOSITION To be determined Vital Signs: Date Time Temp Pulse Resp B/P Pulse Ox O2 Delivery O2 Flow Rate FiO2 02/04/17 16:06 36.3 63 20 112/75 97 Room Air 02/04/17 15:55 Nasal Cannula 2.0 02/04/17 08:00 36.3 66 20 130/76 98 02/04/17 08:00 Nasal Cannula 2.0 02/04/17 01:20 36.3 65 20 147/73 100 2.0 02/04/17 00:20 36.3 64 18 120/77 100 2.0 02/04/17 00:00 Nasal Cannula 2.0 02/03/17 23:22 36.3 62 18 129/75 100 Nasal Cannula 2.0 02/03/17 23:20 36.3 62 20 127/74 100 2.0 02/03/17 22:50 36.3 63 20 129/75 100 2.0 02/03/17 22:35 36.3 63 20 112/73 99 2.0 02/03/17 22:21 36.2 63 18 110/71 100 2.0 02/03/17 21:05 36.2 64 20 115/68 98 2.0 02/03/17 20:05 36.4 63 20 113/69 100 2.0 02/03/17 19:34 36.6 63 20 111/70 100 2.0 02/03/17 19:18 36.5 62 20 116/73 100 2.0 02/03/17 19:03 36.4 62 20 114/75 100 Lab Results: Results Past 24 Hours Test 02/03/17 19:50 02/03/17 20:41 02/03/17 21:22 02/03/17 22:05 Range/Units Bedside Glucose 29 28 106 54 70-99 mg/dl Test 02/03/17 23:00 02/03/17 23:10 02/04/17 01:03 02/04/17 01:50 Range/Units Stool Occult Blood NEGATIVE NEGATIVE Bedside Glucose 106 69 70 70-99 mg/dl Test 02/04/17 02:52 02/04/17 03:55 02/04/17 04:59 02/04/17 07:24 Range/Units Bedside Glucose 73 75 147 70-99 mg/dl White Blood Count 8.45 4.8-10.8 K/uL Red Blood Count 3.42 4.7-6.1 M/uL Hemoglobin 10.0 14.0-18.0 g/dL Hematocrit 31.2 42-52 % Mean Corpuscular Volume 91.2 80-100 fL Mean Corpuscular Hemoglobin 29.2 25-34 pg Mean Corpuscular Hemoglobin Concent 32.1 32-36 g/dl Platelet Count 130 130-400 K/uL Mean Platelet Volume 9.9 7.4-10.4 fL Neutrophils (%) (Auto) 90.8 % Lymphocytes (%) (Auto) 1.7 % Monocytes (%) (Auto) 7.0 % Eosinophils (%) (Auto) 0.0 % Basophils (%) (Auto) 0.0 % Neutrophils # (Auto) 7.68 1.4-6.5 K/uL Lymphocytes # (Auto) 0.14 1.2-3.4 K/uL Monocytes # (Auto) 0.59 0.11-0.59 K/uL Eosinophils # (Auto) 0.00 0-0.5 K/uL Basophils # (Auto) 0.00 0-0.2 K/uL RDW Standard Deviation 54.7 36.4-46.3 fL RDW Coefficient of Variation 16.5 11.5-14.5 % Immature Granulocyte % (Auto) 0.5 % Immature Granulocyte # (Auto) 0.04 0.00-0.02 K/uL Prothrombin Time 19.7 9.0-12.0 SECONDS Prothromb Time International Ratio 1.8 0.9-1.1 Sodium Level 139 136-145 mmol/L Potassium Level 4.4 3.5-5.1 mmol/L Chloride Level 105 98-107 mmol/L Carbon Dioxide Level 29 21-32 mmol/L Anion Gap 5.0 3-11 mmol/L Blood Urea Nitrogen 33 7-18 mg/dl Creatinine 2.00 0.60-1.40 mg/dl Est Creatinine Clear Calc Drug Dose 37.8 ml/min Estimated GFR () 37.3 Estimated GFR (Non- 32.2 BUN/Creatinine Ratio 16.4 10-20 Random Glucose 60 70-99 mg/dl Calcium Level 7.4 8.5-10.1 mg/dl 25-Hydroxy Vitamin D Total 10.3 30-100 ng/ml Test 02/04/17 09:02 02/04/17 11:27 02/04/17 11:31 02/04/17 15:02 Range/Units Bedside Glucose 156 125 151 70-99 mg/dl Vancomycin Level Trough 23.5 SEE COMMENT mcg/ml Test 02/04/17 15:14 02/04/17 16:47 Range/Units Hemoglobin 10.0 14.0-18.0 g/dL Hematocrit 31.4 42-52 % Bedside Glucose 143 70-99 mg/dl
--- NOTE | 2017-02-04 19:11 | DIAGNOSTIC IMAGING REPORT ---
EXAMINATION: RENAL ULTRASOUND CLINICAL HISTORY: Acute renal failure. Urinary tract infection. COMPARISON STUDY: CT scan dated 07/21/2015 FINDINGS: The right kidney measures 9.8 cm. The left kidney measures 11.2 cm.. There is no evidence of hydronephrosis. There are no renal masses. The bladder was nearly empty at the time of scanning. There is trace right perihepatic fluid. IMPRESSION : 1. No renal masses identified. 2. No evidence of hydronephrosis 3. Trace right perihepatic fluid Electronically signed by: Darryl Mendiola M.D. 02/04/2017 7:10 PM Dictated Date/Time: 02/04/2017 7:09 PM
[2017-02-04] MEDS: LORAZEPAM 0.5 MG TAB PO SCH (21:17)
[2017-02-04] MEDS: TAMSULOSIN HCL 0.4 MG CAP PO SCH (21:19)
[2017-02-04] MEDS: PANTOprazole SOD 40 MG TAB PO SCH (21:20)
[2017-02-04] MEDS: ATORVASTATIN 40 MG TAB PO SCH (21:20)
[2017-02-04] MEDS: CHOLECALCIFEROL 1000 INTER.UNIT TAB PO SCH (21:25)
[2017-02-04] MEDS: CALCIUM CARBONATE 500 MG CHEWABLE PO SCH ×2 (21:25→21:33)
[2017-02-05 00:32] VITALS: BP 147/103; PULSE 65; TEMP 36.8; O2SAT 100
[2017-02-05] MEDS ORDERED: DEXTROSE 5% 1000ML 1,000 ML IV SCH (02:00)
[2017-02-05] MEDS: HYDROCORTISONE IV 50 MG in SYRINGE 0 ML IV SCH ×3 (02:25→22:07)
[2017-02-05] MEDS: PIPERACILL/TAZOBAC IV 4.5 GM in DEXTROSE 5% 100ML IV SCH ×3 (02:25→22:05)
[2017-02-05] MEDS: LEVOTHYROXINE 25 MCG TAB PO SCH (06:22)
[2017-02-05] MEDS: LEVETIRACETAM IV 500 MG in DEXTROSE 5% 100ML 100 ML IV SCH (08:36)
[2017-02-05] MEDS: SPIRONOLACTONE 25 MG TAB PO SCH (08:39)
[2017-02-05] MEDS: CITALOPRAM 20 MG TAB PO SCH (08:40)
[2017-02-05] MEDS: ASPIRIN 81 MG ECTAB PO SCH (08:41)
[2017-02-05] MEDS: FUROSEMIDE 40 MG TAB PO SCH (08:41)
[2017-02-05 08:49] VITALS: BP 140/86; PULSE 64; TEMP 36.6; O2SAT 98
[2017-02-05] MEDS: AMIODARONE 200 MG TAB PO SCH (08:50)
[2017-02-05] MEDS: METOPROLOL TARTRATE 25 MG TAB PO SCH ×2 (08:51→22:07)
[2017-02-05] MEDS: RISPERIDONE 0.5 MG TAB PO SCH ×2 (08:52→22:06)
[2017-02-05] MEDS: CALCIUM CARBONATE 500 MG CHEWABLE PO SCH ×2 (08:52→22:06)
[2017-02-05 08:54] LABS: COMPLETE YES; HEMATOCRIT 33.8 % (42-52); IG% 0.7 %; LYMPH % 4.3 %; LYMPH ABS # 0.44 K/uL (1.2-3.4); MEAN CELL VOLUME 90.9 fL (80-100); MEAN PLATELET VOLUME 9.7 fL (7.4-10.4); MONO % 2.1 %; NEUT % 92.9 %; PLATELET COUNT 140 K/uL (130-400); RED BLOOD COUNT 3.72 M/uL (4.7-6.1); WHITE BLOOD COUNT 10.22 K/uL (4.8-10.8)
[2017-02-05] MEDS: CHOLECALCIFEROL 1000 INTER.UNIT TAB PO SCH ×2 (08:54→22:09)
[2017-02-05 09:09] LABS: INR 1.4 (0.9-1.1); PROTHROMBIN TIME (PATIENT) 15.4 SECONDS (9.0-12.0)
[2017-02-05 09:26] LABS: BUN/CREATININE RATIO 14.3 (10-20); CALCIUM 7.6 mg/dl (8.5-10.1); MAGNESIUM 2.1 mg/dl (1.8-2.4); POTASSIUM 4.2 mmol/L (3.5-5.1)
--- NOTE | 2017-02-05 12:16 | PROGRESS NOTE ---
DATE: 02/05/2017 DATE: 02/05/2017. I did see Trell today, he is lying in his room. He is pleasantly confused. He thought he was in [place] then came around to recognize he was in [place]. He could name Dr. Biggs as his family physician but beyond this really did not seem to have a lot of intact orientation. No seizures have been reported. I do not see any focal abnormalities other than the cognitive impairment which is a global issue and imaging studies have not shown anything of significance. His blood glucose levels have been a little more controlled. His EEG while technically limited due to movement artifacts did not show any evidence for ongoing seizure activity or potentially epileptic activity and the Keppra has been stopped. At this point, I am not sure how much more neurology has to offer. I will keep seeing him for another day or two, hoping that his mental status clears, but according to what I can glean from the chart the family does not feel they can care for him at home and placement is being suggested probably near his area up home in [place]. Again, we would not treat this man with anticonvulsants unless we see unequivocal evidence for ongoing seizure activity for recurrent seizures at this point, independent of his blood glucose levels which were low at the time the event apparently occurred. ASHLEY
[2017-02-05] MEDS: VANCOMYCIN INJ 1,250 MG in SODIUM CHLORIDE 0.9% 250ML 250 ML IV SCH (13:23)
--- NOTE | 2017-02-05 15:28 | Pharmacy Progress Note ---
Glycemic: Assessment & Plan Date of Service Feb 05, 2017. Assessment & Plan Assessment * D5W discontinued this AM for BSG's rising * Etiology of persistent hypoglycemia unclear. Patient has received *no* insulin this admission * Spoke w Dr. Nemo LYN to resume Novolog, but will only do very loose sliding scale for BSG's > 200 mg/dL * No further need to follow patient from a glycemic standpoint Plan Pharmacy will sign-off now * Correctional Insulin: Novolog Correction per scale ACHS Goal Range: Low 100 mg/dL - High 200 mg/dL Correction Factor: 40 mg/dL/unit * Please note that the plan above was derived based on current level of insulin resistance and hospital stress. These recommendations are appropriate for inpatient admission only. Plan of care upon discharge will need to be reassessed to avoid potential outpatient hypo/hyperglycemia.
[2017-02-05 16:13] VITALS: BP 150/67; PULSE 67; TEMP 36.4; O2SAT 100
[2017-02-05 16:34] VITALS: O2SAT 100
--- NOTE | 2017-02-05 17:17 | Progress Note ---
Internal Med Progress Note Date of Service: Feb 05, 2017. Provider Documentation: SUBJECTIVE: upset his lunch was taken away upset he is not getting discharged today afebrile denies any pain not in good mood OBJECTIVE: Vital Signs-as noted below Exam: General-alert and oriented x 2 ENT-hard of hearing Neck-no neck masses Lungs-cta b/l no wheezing no crackles Heart-s1 and s2 heard regular rate and rhythm no murmurs' Abdomen-soft bowel sounds present non tender no distension Extremities-no edema no erythema Neuro-alert and awake and oriented speech normal moves extremities Lab data as noted below. ASSESSMENT & PLAN: ALTERED MENTAL STATUS WITH RIGHT FACIAL DROOP Mostlikely from hypoglycemia ruled out acute CVA; history of prior CVA with left side residual weakness Metabolic encephalopathy from hypoglycemia, infection Urine drug screen negative Initial CT head showed multiple old strokes, no acute findings repeat ct head today no acute findings Unable to obtain MRI secondary to pace maker carotid doppler unremarkable on aspirin and statin; Coumadin held for supratherapeutic INR started on Keppra by neurology but later stopped as symptoms mostly seems from hypoglcemia Seen by Speech PT, OT evaluations eeg non specific stable currently HYPOGLYCEMIA Possibly due to underlying infection; has DM 2 not using insulin at home On chronic steroids for unknown reason- > Stress does steroids ordered received D5 NSS d/w Endocrinology sugars coming up on d5w stopped d5w will monitor LEFT GREAT TOE OSTEOMYELITIS on iv daniel Consulted infectious disease Consulted orthopedic surgery consulted vascular and appreciate inputs and await recommendations UTI proteus on zosyn [place] on CKD III Creat increased to 2.3 from baseline 2.0 Holding Lasix and spironolactone on gentle IVF's cr 2.0 today will f/u labs HYPOKALEMIA Replacement given; resolved Monitor PRP BORDERLINE BP Lasix and spironolactone held Metoprolol reduced from 25 mg ->12.5 mg daily improving and restarted diuretics PAROXYSMAL AFIB/ SINUS NODE DYSFUNCTION S/P PACEMAKER INR supratherapeutic Holding Coumadin; monitor INR Rate is controlled Metoprolol dose decreased from 25 ->12.5 mg daily on amiodarone Interrogate pacemaker inr 1.4 but hold Coumadin for any procedures. CHRONIC DIASTOLIC CHF CXR shows congestive findings Appears compensated on exam Holding Lasix and spironolactone for now will monitor for volume overload as on fluids restarted diuretics stable COPD WITH NOCTURNAL HYPOXEMIA Not in acute exacerbation Continue nocturnal O2 CHRONIC ANEMIA Hg 9.8 on presentation stable from baseline Family denies bleeding hb 7.6 01/07/17 transfused two units prbc hb ~10 negative check stool studies CAD S/P CABG stable on aspirin, statin, beta ramona HYPOTHYROIDISM Continue levothyroxine follow thyroid profile DVT PROPHYLAXIS SCDs; holding Coumadin for supratherapeutic INR and anemia hep sub q while inr subtherapeutic CODE STATUS DNR per H and P DISPOSITION To be determined Vital Signs: Date Time Temp Pulse Resp B/P Pulse Ox O2 Delivery O2 Flow Rate FiO2 02/05/17 16:13 36.4 67 20 150/67 100 2.0 02/05/17 08:49 36.6 64 18 140/86 98 Nasal Cannula 2.0 02/05/17 08:00 Nasal Cannula 2.0 02/05/17 00:32 36.8 65 20 147/103 100 Nasal Cannula 2.0 02/05/17 00:00 Nasal Cannula 2.0 02/04/17 20:00 Nasal Cannula 2.0 Lab Results: Results Past 24 Hours Test 02/04/17 19:59 02/05/17 00:07 02/05/17 04:42 02/05/17 07:23 Range/Units Bedside Glucose 162 191 191 208 70-99 mg/dl Test 02/05/17 08:43 02/05/17 11:35 02/05/17 16:06 Range/Units White Blood Count 10.22 4.8-10.8 K/uL Red Blood Count 3.72 4.7-6.1 M/uL Hemoglobin 10.8 14.0-18.0 g/dL Hematocrit 33.8 42-52 % Mean Corpuscular Volume 90.9 80-100 fL Mean Corpuscular Hemoglobin 29.0 25-34 pg Mean Corpuscular Hemoglobin Concent 32.0 32-36 g/dl Platelet Count 140 130-400 K/uL Mean Platelet Volume 9.7 7.4-10.4 fL Neutrophils (%) (Auto) 92.9 % Lymphocytes (%) (Auto) 4.3 % Monocytes (%) (Auto) 2.1 % Eosinophils (%) (Auto) 0.0 % Basophils (%) (Auto) 0.0 % Neutrophils # (Auto) 9.50 1.4-6.5 K/uL Lymphocytes # (Auto) 0.44 1.2-3.4 K/uL Monocytes # (Auto) 0.21 0.11-0.59 K/uL Eosinophils # (Auto) 0.00 0-0.5 K/uL Basophils # (Auto) 0.00 0-0.2 K/uL RDW Standard Deviation 54.2 36.4-46.3 fL RDW Coefficient of Variation 16.3 11.5-14.5 % Immature Granulocyte % (Auto) 0.7 % Immature Granulocyte # (Auto) 0.07 0.00-0.02 K/uL Prothrombin Time 15.4 9.0-12.0 SECONDS Prothromb Time International Ratio 1.4 0.9-1.1 Sodium Level 133 136-145 mmol/L Potassium Level 4.2 3.5-5.1 mmol/L Chloride Level 98 98-107 mmol/L Carbon Dioxide Level 26 21-32 mmol/L Anion Gap 9.0 3-11 mmol/L Blood Urea Nitrogen 29 7-18 mg/dl Creatinine 2.00 0.60-1.40 mg/dl Est Creatinine Clear Calc Drug Dose 37.8 ml/min Estimated GFR () 37.3 Estimated GFR (Non- 32.2 BUN/Creatinine Ratio 14.3 10-20 Random Glucose 214 70-99 mg/dl Calcium Level 7.6 8.5-10.1 mg/dl Magnesium Level 2.1 1.8-2.4 mg/dl Bedside Glucose 259 305 70-99 mg/dl
[2017-02-05] MEDS: INSULIN ASPART 100 UNITS/ML 3 ML PEN SC SCH ×2 (17:37→22:20)
[2017-02-05] MEDS ORDERED: NURSING VERBAL MED ORDER ONE (20:45)
[2017-02-05] MEDS ORDERED: PHARMACY GLYCEMIC MGMT CONSULT SCH (21:00)
[2017-02-05] MEDS: LORAZEPAM 0.5 MG TAB PO SCH (22:06)
[2017-02-05] MEDS: ATORVASTATIN 40 MG TAB PO SCH (22:08)
[2017-02-05] MEDS: TAMSULOSIN HCL 0.4 MG CAP PO SCH (22:09)
[2017-02-05] MEDS: PANTOprazole SOD 40 MG TAB PO SCH (22:09)
[2017-02-05] MEDS: HEPARIN SOD 5000 UNIT/0.5 ML CARP SQ SCH (22:20)
[2017-02-06 00:15] VITALS: BP 143/93; PULSE 64; TEMP 36.4; O2SAT 100
[2017-02-06] MEDS ORDERED: INSULIN ASPART 100 UNITS/ML 3 ML PEN SC ONE (02:00)
[2017-02-06] MEDS: PIPERACILL/TAZOBAC IV 4.5 GM in DEXTROSE 5% 100ML IV SCH ×3 (03:47→20:37)
[2017-02-06] MEDS: LEVOTHYROXINE 25 MCG TAB PO SCH (06:36)
[2017-02-06 07:46] LABS: COMPLETE YES; EOS % 0.1 %; HEMATOCRIT 33.8 % (42-52); IG% 0.5 %; LYMPH % 7.4 %; LYMPH ABS # 0.83 K/uL (1.2-3.4); MEAN CELL VOLUME 90.6 fL (80-100); MEAN CORPUSCULAR HEMOGLOBIN 28.7 pg (25-34); MEAN CORPUSCULAR HGB CONC 31.7 g/dl (32-36); MEAN PLATELET VOLUME 9.4 fL (7.4-10.4); MONO % 2.7 %; NEUT % 89.3 %; PLATELET COUNT 144 K/uL (130-400); RED BLOOD COUNT 3.73 M/uL (4.7-6.1); WHITE BLOOD COUNT 11.21 K/uL (4.8-10.8)
[2017-02-06 08:00] LABS: INR 1.6 (0.9-1.1); PROTHROMBIN TIME (PATIENT) 17.9 SECONDS (9.0-12.0)
[2017-02-06 08:18] LABS: BUN/CREATININE RATIO 17.3 (10-20); CALCIUM 7.5 mg/dl (8.5-10.1); CREATININE 1.9 mg/dl (0.60-1.40); MAGNESIUM 2.3 mg/dl (1.8-2.4); POTASSIUM 3.9 mmol/L (3.5-5.1)
[2017-02-06 08:19] VITALS: BP 126/80; PULSE 62; TEMP 36.5; O2SAT 100
[2017-02-06] MEDS: CALCIUM CARBONATE 500 MG CHEWABLE PO SCH ×2 (09:00→20:37)
[2017-02-06] MEDS: INSULIN ASPART 100 UNITS/ML 3 ML PEN SC SCH ×4 (09:10→20:50)
[2017-02-06] MEDS: HYDROCORTISONE IV 50 MG in SYRINGE 0 ML IV SCH (09:12)
[2017-02-06] MEDS: RISPERIDONE 0.5 MG TAB PO SCH ×2 (09:15→20:39)
[2017-02-06] MEDS: CHOLECALCIFEROL 1000 INTER.UNIT TAB PO SCH ×2 (09:15→20:38)
[2017-02-06] MEDS: METOPROLOL TARTRATE 25 MG TAB PO SCH ×2 (09:17→20:38)
[2017-02-06] MEDS: AMIODARONE 200 MG TAB PO SCH (09:19)
[2017-02-06] MEDS: CITALOPRAM 20 MG TAB PO SCH (09:20)
[2017-02-06] MEDS: SPIRONOLACTONE 25 MG TAB PO SCH (09:20)
[2017-02-06] MEDS: ASPIRIN 81 MG ECTAB PO SCH (09:20)
[2017-02-06] MEDS: FUROSEMIDE 40 MG TAB PO SCH (09:21)
[2017-02-06] MEDS: HEPARIN SOD 5000 UNIT/0.5 ML CARP SQ SCH ×2 (09:24→20:50)
--- NOTE | 2017-02-06 13:18 | PROGRESS NOTE ---
DATE: 02/06/2017 Trell looks about the same. He now knows he is in [employer]. He does not get the year, but he did get the month correct and seems a little better oriented, but still has virtually no recall of the events that precipitated his admission and denies that he had any low blood sugar, although there is no way he would know this I do not see notations of recurrent seizure activity and he remains pleasantly confused without much in the way of focal findings other than manifestations of his diabetic polyneuropathy. At this point, I think the entire syndrome was based on hypoglycemia. Whether or not he has baseline cognitive impairment cannot be established, but I suspect he does on a small vessel disease basis. Neurology really does not need to see him again unless he would have more seizures, so we are going to sign off the case and see him on an as-needed basis. It looks as though placement is going to be required and at this time his final destination has not been established. MTDJanessa
[2017-02-06] MEDS: VANCOMYCIN INJ 1,250 MG in SODIUM CHLORIDE 0.9% 250ML 250 ML IV SCH (13:31)
--- NOTE | 2017-02-06 13:52 | ECHOCARDIOGRAM REPORT ---
*NOTICE TO RECEIVING LIBERTARIAN AGENCY This information is strictly Confidential and protected under [place] law. [place] law prohibits you from making any further disclosure of this information unless further disclosure is expressly permitted by the written consent of the person to whom it pertains or is authorized by law. A general authorization for the release of medical or other information is not sufficient for this purpose. Hospital accepts no responsibility if the information is made available to any other person, INCLUDING THE PATIENT. Interpretation Summary * Name: MARCELL ARROYO Study Date: 02/06/2017 06:44 AM BP: 140/86 mmHg * Patient Location: [facility]– [place][note 2] HR: 64 * : 1945 (M/d/yyyy) Gender: Male Height: 67 in * Age: 71 yrs Ethnicity: [place] Weight: 229 lb * Ordering Physician: Naz Pompa * Performed By: Radha Bailon RDCS * * Reason For Study: TIA * BSA: 2.1 m2 * The study was technically adequate. * Compared to prior study, changes are noted. * -- Conclusions -- * Ejection Fraction = 55-60%. * The right ventricle is mildly dilated. * The right ventricular systolic function is reduced as assessed by tricuspid annular plane systolic excursion (TAPSE) (TAPSE <1.6 cm). * There is mild concentric left ventricular hypertrophy. * Septal motion is consistent with post-operative state. * There is a bioprosthetic mitral valve. * Normal prosthetic mitral valve gradients. * The bioprosthetic valve leaflets are poorly visualized. * There is a non-mobile echodensity near the lateral MV annulus. Vegetation cannot be excluded. Clinical correlation reccommended. Procedure Details * A complete two-dimensional transthoracic echocardiogram was performed (2D, M-mode, Doppler and color flow Doppler). * A saline contrast injection was performed to assess for cardiac shunting. * The injection was performed through an intravenous line in the left arm. * The attending nurse who injected the saline contrast was Zoya Mo RN. * A total of 20 cc of agitated saline was given. Left Ventricle * The left ventricle is not well visualized. * There is no thrombus. * There is mild concentric left ventricular hypertrophy. * Ejection Fraction = 55-60%. * Septal motion is consistent with post-operative state. Right Ventricle * The right ventricle is mildly dilated. * There is a pacemaker lead in the right ventricle. * The right ventricular systolic function is reduced as assessed by tricuspid annular plane systolic excursion (TAPSE) (TAPSE <1.6 cm). Atria * The left atrium is moderately dilated. * The right atrium is mildly dilated. * Injection of contrast documented no interatrial shunt. Mitral Valve * There is a bioprosthetic mitral valve. * The bioprosthetic valve leaflets are poorly visualized. There is a non-mobile echodensity near the lateral MV annulus. Vegetation cannot be excluded. Clinical correlation reccommended. * Normal prosthetic mitral valve gradients. Tricuspid Valve * The tricuspid valve is not well visualized. * There is no tricuspid stenosis. * Significant tricuspid regurgitation is absent. Aortic Valve * The aortic valve is mildly calcified. * Aortic valve sclerosis mild, without significant aortic valvular stenosis. Pulmonic Valve * The pulmonary valve is not well seen, but the Doppler examination is normal without significant regurgitation or stenosis. Great Vessels * The aortic root is normal size. Pericardium/Pleural * There is no pericardial effusion. Great Vessels * Normal inferior vena cava size and collapsability with sniff indicates a normal right atrial pressure of 3 mmHg Left Ventricular Diastolic Function * Pulse wave TDI of the anterior and posterior mitral annulas demonstrates abnormal LV relaxation MMode 2D Measurements and Calculations IVSd 1.3 cm LVIDd 4.4 cm LVIDs 2.7 cm LVPWd 1.4 cm IVS/LVPW 0.94 FS 37.7 % EDV(Teich) 86.8 ml ESV(Teich) 27.7 ml EF(Teich) 68.1 % EDV(cubed) 84.1 ml ESV(cubed) 20.3 ml EF(cubed) 75.9 % LV mass(C)d 223.9 grams LV mass(C)dI 104.5 grams/m\S\2 CO(Teich) 3.8 l/min CI(Teich) 1.8 l/min/m\S\2 SV(Teich) 59.1 ml SI(Teich) 27.6 ml/m\S\2 CO(cubed) 4.1 l/min CI(cubed) 1.9 l/min/m\S\2 SV(cubed) 63.8 ml SI(cubed) 29.8 ml/m\S\2 Ao root diam 3.1 cm Ao root area 7.7 cm\S\2 ACS 1.6 cm LA dimension 4.6 cm asc Aorta Diam 3.3 cm LA/Ao 1.5 LVOT diam 2.0 cm LVOT area 3.3 cm\S\2 LVAd ap4 22.8 cm\S\2 LVLd ap4 6.7 cm EDV(MOD-sp4) 66.3 ml LVAs ap4 14.3 cm\S\2 LVLs ap4 6.2 cm ESV(MOD-sp4) 28.2 ml EF(MOD-sp4) 57.5 % LVAd ap2 23.7 cm\S\2 LVLd ap2 7.3 cm EDV(MOD-sp2) 65.1 ml LVAs ap2 15.5 cm\S\2 LVLs ap2 6.8 cm ESV(MOD-sp2) 28.4 ml EF(MOD-sp2) 56.4 % CO(MOD-sp4) 2.4 l/min CI(MOD-sp4) 1.1 l/min/m\S\2 SV(MOD-sp4) 38.1 ml SI(MOD-sp4) 17.8 ml/m\S\2 CO(MOD-sp2) 2.3 l/min CI(MOD-sp2) 1.1 l/min/m\S\2 SV(MOD-sp2) 36.7 ml SI(MOD-sp2) 17.1 ml/m\S\2 Doppler Measurements and Calculations MV E max robert 196.2 cm/sec MV V2 max 222.1 cm/sec MV max PG 19.8 mmHg MV V2 mean 113.0 cm/sec MV mean PG 6.2 mmHg MV V2 VTI 72.2 cm MV dec time 0.50 sec Ao V2 max 135.7 cm/sec Ao max PG 7.4 mmHg Ao max PG (full) 4.8 mmHg CORI(V,A) 1.9 cm\S\2 CORI(V,D) 1.9 cm\S\2 LV V1 max PG 2.5 mmHg LV V1 max 79.8 cm/sec PA V2 max 86.9 cm/sec PA max PG 3.0 mmHg PA acc slope 275.5 cm/sec\S\2 PA acc time 0.16 sec PI max robert 145.5 cm/sec PI max PG 8.5 mmHg PI dec slope 229.0 cm/sec\S\2 PI P1/2t 186.1 msec TR max robert 202.2 cm/sec PA pr(Accel) 6.1 mmHg
--- NOTE | 2017-02-06 14:24 | Pharmacy Progress Note ---
Glycemic: Assessment & Plan Date of Service Feb 06, 2017. Assessment & Plan Assessment 02/05/17 * D5W discontinued this AM for BSG's rising * Etiology of persistent hypoglycemia unclear. Patient has received *no* insulin this admission * Spoke w Dr. Nemo LYN to resume Novolog, but will only do very loose sliding scale for BSG's > 200 mg/dL 02/06/17 * Patient with hyperglycemia > 300 mg/dL yesterday evening, likely post- prandial steroid-induced. * Will add carb ratio for today only * Will discontinue carb ratio tomorrow as last dose of hydrocortisone was this AM and next prednisone not scheduled until 02/08 * Will make dose adjustments carefully as patient had recent persistent severe hypoglycemia of unknown etiology that required D10W infusions Plan For 02/06/17 * Correctional Insulin: Novolog Correction per scale ACHS Goal Range: Low 150 mg/dL - High 200 mg/dL Correction Factor: 40 mg/dL/unit * Prandial insulin: Per carb ratio of 1 unit per 20 grams CHO consumed For 02/07/17 and ongoing * Correctional Insulin: Novolog Correction per scale ACHS Goal Range: Low 140 mg/dL - High 180 mg/dL Correction Factor: 40 mg/dL/unit * Prandial insulin: None Pharmacy will continue to monitor patient daily and write orders per [facility] inpatient glycemic control protocol. Thanks. * Please note that the plan above was derived based on current level of insulin resistance and hospital stress. These recommendations are appropriate for inpatient admission only. Plan of care upon discharge will need to be reassessed to avoid potential outpatient hypo/hyperglycemia.
[2017-02-06 15:29] VITALS: BP 99/58; PULSE 62; TEMP 36.3; O2SAT 99
[2017-02-06 16:28] VITALS: O2SAT 100
--- NOTE | 2017-02-06 18:05 | Progress Note ---
Internal Med Progress Note Date of Service: Feb 06, 2017. Provider Documentation: SUBJECTIVE: denies pain says he wants to go home soon as family re [place] coming up afebrile eating ok OBJECTIVE: Vital Signs-as noted below Exam: General-alert and oriented x 2 ENT-hard of hearing Neck-no neck masses Lungs-cta b/l no wheezing no crackles Heart-s1 and s2 heard regular rate and rhythm no murmurs' Abdomen-soft bowel sounds present non tender no distension Extremities-no edema no erythema Neuro-alert and awake and oriented speech normal moves extremities Lab data as noted below. ASSESSMENT & PLAN: ALTERED MENTAL STATUS WITH RIGHT FACIAL DROOP Mostlikely from hypoglycemia ruled out acute CVA; history of prior CVA with left side residual weakness Metabolic encephalopathy from hypoglycemia, infection Urine drug screen negative Initial CT head showed multiple old strokes, no acute findings repeat ct head no acute findings Unable to obtain MRI secondary to pace maker carotid doppler unremarkable on aspirin and statin; Coumadin held for supratherapeutic INR started on Keppra by neurology but later stopped as symptoms mostly seems from hypoglcemia Seen by Speech PT, OT evaluations eeg non specific seems at his baseline stable currently HYPOGLYCEMIA Possibly due to underlying infection; has DM 2 not using insulin at home On chronic steroids for unknown reason- > Stress does steroids ordered received D5 NSS d/w Endocrinology sugars coming up on d5w stopped d5w tapering steroids will monitor LEFT GREAT TOE OSTEOMYELITIS on iv daniel Consulted infectious disease Consulted orthopedic surgery consulted vascular and appreciate inputs and await recommendations UTI proteus on zosyn [place] on CKD III Creat increased to 2.3 from baseline 2.0 Holding Lasix and spironolactone on gentle IVF's cr 1.9 today will f/u labs HYPOKALEMIA Replacement given; resolved Monitor PRP BORDERLINE BP Lasix and spironolactone held Metoprolol reduced from 25 mg ->12.5 mg daily improving and restarted diuretics Stable conditions: PAROXYSMAL AFIB/ SINUS NODE DYSFUNCTION S/P PACEMAKER INR supratherapeutic Holding Coumadin; monitor INR Rate is controlled Metoprolol dose decreased from 25 ->12.5 mg daily on amiodarone Interrogate pacemaker inr 1.4 but holding Coumadin for any procedures. CHRONIC DIASTOLIC CHF CXR shows congestive findings Appears compensated on exam Holding Lasix and spironolactone for now will monitor for volume overload as on fluids restarted diuretics stable COPD WITH NOCTURNAL HYPOXEMIA Not in acute exacerbation Continue nocturnal O2 CHRONIC ANEMIA Hg 9.8 on presentation stable from baseline Family denies bleeding hb 7.6 01/07/17 transfused two units prbc hb ~10 negative check stool studies CAD S/P CABG stable on aspirin, statin, beta ramona HYPOTHYROIDISM Continue levothyroxine follow thyroid profile DVT PROPHYLAXIS SCDs; holding Coumadin for supratherapeutic INR and anemia hep sub q while inr subtherapeutic CODE STATUS DNR per H and P DISPOSITION To be determined Vital Signs: Date Time Temp Pulse Resp B/P Pulse Ox O2 Delivery O2 Flow Rate FiO2 02/06/17 15:29 36.3 62 18 99/58 99 Nasal Cannula 2.0 02/06/17 08:19 36.5 62 20 126/80 100 2.0 02/06/17 07:15 Nasal Cannula 2.0 02/06/17 00:15 36.4 64 20 143/93 100 Nasal Cannula 2.0 02/06/17 00:00 Nasal Cannula 2.0 Lab Results: Results Past 24 Hours Test 02/05/17 19:41 02/06/17 02:10 02/06/17 07:40 02/06/17 07:41 Range/Units Bedside Glucose 323 183 163 70-99 mg/dl White Blood Count 11.21 4.8-10.8 K/uL Red Blood Count 3.73 4.7-6.1 M/uL Hemoglobin 10.7 14.0-18.0 g/dL Hematocrit 33.8 42-52 % Mean Corpuscular Volume 90.6 80-100 fL Mean Corpuscular Hemoglobin 28.7 25-34 pg Mean Corpuscular Hemoglobin Concent 31.7 32-36 g/dl Platelet Count 144 130-400 K/uL Mean Platelet Volume 9.4 7.4-10.4 fL Neutrophils (%) (Auto) 89.3 % Lymphocytes (%) (Auto) 7.4 % Monocytes (%) (Auto) 2.7 % Eosinophils (%) (Auto) 0.1 % Basophils (%) (Auto) 0.0 % Neutrophils # (Auto) 10.01 1.4-6.5 K/uL Lymphocytes # (Auto) 0.83 1.2-3.4 K/uL Monocytes # (Auto) 0.30 0.11-0.59 K/uL Eosinophils # (Auto) 0.01 0-0.5 K/uL Basophils # (Auto) 0.00 0-0.2 K/uL RDW Standard Deviation 53.1 36.4-46.3 fL RDW Coefficient of Variation 16.1 11.5-14.5 % Immature Granulocyte % (Auto) 0.5 % Immature Granulocyte # (Auto) 0.06 0.00-0.02 K/uL Prothrombin Time 17.9 9.0-12.0 SECONDS Prothromb Time International Ratio 1.6 0.9-1.1 Sodium Level 134 136-145 mmol/L Potassium Level 3.9 3.5-5.1 mmol/L Chloride Level 99 98-107 mmol/L Carbon Dioxide Level 26 21-32 mmol/L Anion Gap 9.0 3-11 mmol/L Blood Urea Nitrogen 33 7-18 mg/dl Creatinine 1.90 0.60-1.40 mg/dl Est Creatinine Clear Calc Drug Dose 39.8 ml/min Estimated GFR () 39.7 Estimated GFR (Non- 34.2 BUN/Creatinine Ratio 17.3 10-20 Random Glucose 167 70-99 mg/dl Calcium Level 7.5 8.5-10.1 mg/dl Magnesium Level 2.3 1.8-2.4 mg/dl Test 02/06/17 11:18 02/06/17 16:09 Range/Units Bedside Glucose 171 204 70-99 mg/dl
[2017-02-06] MEDS: LORAZEPAM 0.5 MG TAB PO SCH (20:37)
[2017-02-06] MEDS: PANTOprazole SOD 40 MG TAB PO SCH (20:39)
[2017-02-06] MEDS: TAMSULOSIN HCL 0.4 MG CAP PO SCH (20:39)
[2017-02-06] MEDS: ATORVASTATIN 40 MG TAB PO SCH (20:39)
[2017-02-06 20:58] VITALS: BP 149/86; PULSE 87
[2017-02-06 23:08] VITALS: BP 129/58; PULSE 82; TEMP 36.4; O2SAT 94
[2017-02-07] MEDS: PIPERACILL/TAZOBAC IV 4.5 GM in DEXTROSE 5% 100ML IV SCH ×3 (04:06→19:29)
[2017-02-07 05:54] LABS: BASO % 0.2 %; BASO ABS # 0.02 K/uL (0-0.2); COMPLETE YES; HEMATOCRIT 32.4 % (42-52); IG% 0.6 %; LYMPH % 4.6 %; LYMPH ABS # 0.48 K/uL (1.2-3.4); MEAN CELL VOLUME 91.8 fL (80-100); MEAN CORPUSCULAR HEMOGLOBIN 28.9 pg (25-34); MEAN CORPUSCULAR HGB CONC 31.5 g/dl (32-36); MEAN PLATELET VOLUME 9.7 fL (7.4-10.4); NEUT % 90.6 %; PLATELET COUNT 138 K/uL (130-400); RED BLOOD COUNT 3.53 M/uL (4.7-6.1); WHITE BLOOD COUNT 10.33 K/uL (4.8-10.8)
[2017-02-07 06:21] LABS: BUN/CREATININE RATIO 17.8 (10-20); CALCIUM 7.3 mg/dl (8.5-10.1); CREATININE 2.1 mg/dl (0.60-1.40); MAGNESIUM 2.4 mg/dl (1.8-2.4); POTASSIUM 4.3 mmol/L (3.5-5.1)
[2017-02-07] MEDS: LEVOTHYROXINE 25 MCG TAB PO SCH (06:30)
[2017-02-07 07:26] VITALS: BP 147/76; PULSE 63; TEMP 36.4; O2SAT 100
[2017-02-07 08:45] VITALS: O2SAT 100
[2017-02-07] MEDS: SPIRONOLACTONE 25 MG TAB PO SCH (08:56)
[2017-02-07] MEDS: RISPERIDONE 0.5 MG TAB PO SCH ×2 (08:57→20:50)
[2017-02-07] MEDS: CHOLECALCIFEROL 1000 INTER.UNIT TAB PO SCH ×2 (08:57→20:59)
--- NOTE | 2017-02-07 08:57 | Progress Note ---
Progress Note Date of Service Feb 07, 2017. Progress Note Pt's BLE arterial US reviewed by Dr Guzmán. Recommend local wound care and abx per ID. Pt renal fxn precludes elective angiography, but if amputation imminent , could consider LLE angiography. Please call if needed.
[2017-02-07] MEDS: CITALOPRAM 20 MG TAB PO SCH (08:58)
[2017-02-07] MEDS: ASPIRIN 81 MG ECTAB PO SCH (08:59)
[2017-02-07] MEDS: FUROSEMIDE 40 MG TAB PO SCH (08:59)
[2017-02-07] MEDS: HEPARIN SOD 5000 UNIT/0.5 ML CARP SQ SCH ×2 (09:00→21:07)
[2017-02-07] MEDS: CALCIUM CARBONATE 500 MG CHEWABLE PO SCH ×2 (09:00→20:51)
[2017-02-07 09:02] VITALS: BP 144/69; PULSE 62
[2017-02-07] MEDS: AMIODARONE 200 MG TAB PO SCH (09:04)
[2017-02-07] MEDS: METOPROLOL TARTRATE 25 MG TAB PO SCH ×2 (09:04→20:49)
[2017-02-07] MEDS: INSULIN ASPART 100 UNITS/ML 3 ML PEN SC SCH ×4 (09:21→20:47)
--- NOTE | 2017-02-07 11:54 | Pharmacy Progress Note ---
Glycemic: Assessment & Plan Date of Service Feb 07, 2017. Assessment & Plan Assessment 02/05/17 * D5W discontinued this AM for BSG's rising * Etiology of persistent hypoglycemia unclear. Patient has received *no* insulin this admission * Spoke w Dr. Nemo LYN to resume Novolog, but will only do very loose sliding scale for BSG's > 200 mg/dL 02/06/17 * Patient with hyperglycemia > 300 mg/dL yesterday evening, likely post- prandial steroid-induced. * Will add carb ratio for today only * Will discontinue carb ratio tomorrow as last dose of hydrocortisone was this AM and next prednisone not scheduled until 02/08 * Will make dose adjustments carefully as patient had recent persistent severe hypoglycemia of unknown etiology that required D10W infusions 02/07/17 * BSGs elevated > 200 mg/dl yesterday evening and continued into this morning with FBG of 220 mg/dl. * Will resume CR as it appears necessary to control BSGs (haven't actually seen BSGs without CR yet). * Also, adjust goal BSG range to prevent inducing hypoglycemia in pt with recent h/o hypoglycemia despite no insulin administration. Plan * Basal insulin: NONE * Correctional Insulin: Novolog Correction per scale ACHS Goal Range: Low 140 mg/dL - High 200 mg/dL Continue - Correction Factor: 40 mg/dL/unit * Prandial insulin: Resume - Per carb ratio of 1 unit per 20 grams CHO consumed Pharmacy will continue to monitor patient daily and write orders per [facility] inpatient glycemic control protocol. Thanks. * Please note that the plan above was derived based on current level of insulin resistance and hospital stress. These recommendations are appropriate for inpatient admission only. Plan of care upon discharge will need to be reassessed to avoid potential outpatient hypo/hyperglycemia.
[2017-02-07] MEDS ORDERED: VANCOMYCIN TROUGH SCH (13:30)
[2017-02-07] MEDS: VANCOMYCIN INJ 1,250 MG in SODIUM CHLORIDE 0.9% 250ML 250 ML IV SCH (13:59)
[2017-02-07 15:13] VITALS: BP 125/80; PULSE 63; TEMP 36.5; O2SAT 99
--- NOTE | 2017-02-07 19:02 | Progress Note ---
Internal Med Progress Note Date of Service: Feb 07, 2017. Provider Documentation: SUBJECTIVE: resting comfortably denies pain afebrile angry he is not discharged yet doesn't want to go to skilled nursing OBJECTIVE: Vital Signs-as noted below Exam: General-alert and oriented x 2 ENT-hard of hearing Neck-no neck masses Lungs-cta b/l no wheezing no crackles Heart-s1 and s2 heard regular rate and rhythm no murmurs' Abdomen-soft bowel sounds present non tender no distension Extremities-no edema no erythema Neuro-alert and awake and oriented speech normal moves extremities Lab data as noted below. ASSESSMENT & PLAN: ALTERED MENTAL STATUS WITH RIGHT FACIAL DROOP Mostlikely from hypoglycemia ruled out acute CVA; history of prior CVA with left side residual weakness Metabolic encephalopathy from hypoglycemia, infection Urine drug screen negative Initial CT head showed multiple old strokes, no acute findings repeat ct head no acute findings Unable to obtain MRI secondary to pace maker carotid doppler unremarkable on aspirin and statin; Coumadin held for supratherapeutic INR started on Keppra by neurology but later stopped as symptoms mostly seems from hypoglcemia Seen by Speech PT, OT evaluations eeg non specific seems at his baseline stable currently and plan for nuring home patient wants to be discharged home HYPOGLYCEMIA Possibly due to underlying infection; has DM 2 not using insulin at home On chronic steroids for unknown reason- > Stress does steroids ordered received D5 NSS d/w Endocrinology sugars coming up on d5w stopped d5w tapered steroids to his home dose resolved LEFT GREAT TOE OSTEOMYELITIS on iv vanco and zosyn Consulted infectious disease Consulted orthopedic surgery consulted vascular and appreciate inputs and await recommendations No plan for surgery biy vascular surgery ID recommends 3 weeks of po Doxycycline and followup in wound clinic will stop iv abx in am UTI proteus on zosyn will stop Zosyn in am [place] on CKD III Creat increased to 2.3 from baseline 2.0 Held Lasix and spironolactone which are restarted now received gentle IVF's cr 2.1 today will f/u labs HYPOKALEMIA Replacement given; resolved Monitor PRP BORDERLINE BP Lasix and spironolactone held Metoprolol reduced from 25 mg ->12.5 mg daily improving and restarted diuretics Stable conditions: PAROXYSMAL AFIB/ SINUS NODE DYSFUNCTION S/P PACEMAKER INR supratherapeutic Holding Coumadin; monitor INR Rate is controlled Metoprolol dose decreased from 25 ->12.5 mg daily on amiodarone Interrogate pacemaker inr 1.4 but holding Coumadin for any procedures. will restart Coumadin and needs close followup of pt/inr CHRONIC DIASTOLIC CHF CXR shows congestive findings Appears compensated on exam Holding Lasix and spironolactone for now will monitor for volume overload as on fluids restarted diuretics stable COPD WITH NOCTURNAL HYPOXEMIA Not in acute exacerbation Continue nocturnal O2 CHRONIC ANEMIA Hg 9.8 on presentation stable from baseline Family denies bleeding hb 7.6 01/07/17 transfused two units prbc hb ~10 negative check stool studies CAD S/P CABG stable on aspirin, statin, beta ramona HYPOTHYROIDISM Continue levothyroxine follow thyroid profile DVT PROPHYLAXIS SCDs; holding Coumadin for supratherapeutic INR and anemia hep sub q while inr subtherapeutic CODE STATUS DNR per H and P DISPOSITION plan for placement Vital Signs: Date Time Temp Pulse Resp B/P Pulse Ox O2 Delivery O2 Flow Rate FiO2 02/07/17 15:13 36.5 63 18 125/80 99 Room Air 02/07/17 09:02 62 144/69 02/07/17 08:45 100 Nasal Cannula 2.0 02/07/17 07:26 36.4 63 20 147/76 100 Nasal Cannula 2.0 02/07/17 00:00 Nasal Cannula 2.0 02/06/17 23:08 36.4 82 18 129/58 94 Nasal Cannula 2.0 02/06/17 20:58 87 149/86 Lab Results: Results Past 24 Hours Test 02/06/17 20:30 02/07/17 05:29 02/07/17 07:23 02/07/17 11:22 Range/Units Bedside Glucose 211 206 159 70-99 mg/dl White Blood Count 10.33 4.8-10.8 K/uL Red Blood Count 3.53 4.7-6.1 M/uL Hemoglobin 10.2 14.0-18.0 g/dL Hematocrit 32.4 42-52 % Mean Corpuscular Volume 91.8 80-100 fL Mean Corpuscular Hemoglobin 28.9 25-34 pg Mean Corpuscular Hemoglobin Concent 31.5 32-36 g/dl Platelet Count 138 130-400 K/uL Mean Platelet Volume 9.7 7.4-10.4 fL Neutrophils (%) (Auto) 90.6 % Lymphocytes (%) (Auto) 4.6 % Monocytes (%) (Auto) 4.0 % Eosinophils (%) (Auto) 0.0 % Basophils (%) (Auto) 0.2 % Neutrophils # (Auto) 9.36 1.4-6.5 K/uL Lymphocytes # (Auto) 0.48 1.2-3.4 K/uL Monocytes # (Auto) 0.41 0.11-0.59 K/uL Eosinophils # (Auto) 0.00 0-0.5 K/uL Basophils # (Auto) 0.02 0-0.2 K/uL RDW Standard Deviation 53.7 36.4-46.3 fL RDW Coefficient of Variation 16.1 11.5-14.5 % Immature Granulocyte % (Auto) 0.6 % Immature Granulocyte # (Auto) 0.06 0.00-0.02 K/uL Sodium Level 134 136-145 mmol/L Potassium Level 4.3 3.5-5.1 mmol/L Chloride Level 98 98-107 mmol/L Carbon Dioxide Level 28 21-32 mmol/L Anion Gap 8.0 3-11 mmol/L Blood Urea Nitrogen 37 7-18 mg/dl Creatinine 2.10 0.60-1.40 mg/dl Est Creatinine Clear Calc Drug Dose 36.0 ml/min Estimated GFR () 35.1 Estimated GFR (Non- 30.3 BUN/Creatinine Ratio 17.8 10-20 Random Glucose 220 70-99 mg/dl Calcium Level 7.3 8.5-10.1 mg/dl Magnesium Level 2.4 1.8-2.4 mg/dl Test 02/07/17 13:51 02/07/17 16:38 Range/Units Vancomycin Level Trough 28.2 SEE COMMENT mcg/ml Bedside Glucose 96 70-99 mg/dl
[2017-02-07] MEDS ORDERED: WARFARIN SOD 5 MG TAB PO ONE (19:15)
[2017-02-07] MEDS: LORAZEPAM 0.5 MG TAB PO SCH (20:57)
[2017-02-07] MEDS: PANTOprazole SOD 40 MG TAB PO SCH (20:58)
[2017-02-07] MEDS: TAMSULOSIN HCL 0.4 MG CAP PO SCH (20:58)
[2017-02-07] MEDS: ATORVASTATIN 40 MG TAB PO SCH (21:00)
[2017-02-08 00:49] VITALS: BP 120/73; PULSE 59; TEMP 36.5; O2SAT 100
[2017-02-08] MEDS: PIPERACILL/TAZOBAC IV 4.5 GM in DEXTROSE 5% 100ML IV SCH (04:07)
[2017-02-08] MEDS: LEVOTHYROXINE 25 MCG TAB PO SCH (05:47)
[2017-02-08 07:20] VITALS: BP 131/75; PULSE 65; TEMP 36.4; O2SAT 97
[2017-02-08] MEDS: HEPARIN SOD 5000 UNIT/0.5 ML CARP SQ SCH (09:00)
[2017-02-08] MEDS: INSULIN ASPART 100 UNITS/ML 3 ML PEN SC SCH ×2 (09:12→13:08)
[2017-02-08] MEDS: CALCIUM CARBONATE 500 MG CHEWABLE PO SCH (09:13)
[2017-02-08] MEDS: SPIRONOLACTONE 25 MG TAB PO SCH (09:14)
[2017-02-08] MEDS: CITALOPRAM 20 MG TAB PO SCH (09:15)
[2017-02-08] MEDS: CHOLECALCIFEROL 1000 INTER.UNIT TAB PO SCH (09:15)
[2017-02-08] MEDS: AMIODARONE 200 MG TAB PO SCH (09:15)
[2017-02-08] MEDS: ASPIRIN 81 MG ECTAB PO SCH (09:16)
[2017-02-08] MEDS: METOPROLOL TARTRATE 25 MG TAB PO SCH (09:16)
[2017-02-08] MEDS: RISPERIDONE 0.5 MG TAB PO SCH (09:17)
[2017-02-08] MEDS: FUROSEMIDE 40 MG TAB PO SCH (09:19)
[2017-02-08] MEDS ORDERED: CHOL20009 PO (11:27)
[2017-02-08] MEDS ORDERED: CALC600T9 PO (11:27)
[2017-02-08] MEDS ORDERED: LCTX PO (11:28)
--- NOTE | 2017-02-08 11:32 | Discharge Instructions ---
Discharge Instructions Date of Service Feb 08, 2017. Admission Reason for Admission: Altered Mental Status Hypoglycemia Discharge Discharge Diagnosis / Problem: aleterd mental staus, Hypoglycemia, Osteomyelitis Discharge Goals Goal(s): Decrease discomfort, Improve function Activity Recommendations Activity Level: Assistance Required Therapies: Physical Therapy, Occupational Therapy . Additional Information Patient informed of condition: Yes Advance Directives: Yes DNR: Yes Level of Care: Skilled Communicable Disease: No Prognosis: Stable Aguila Catheter: No Instructions / Follow-Up Instructions / Follow-Up FOLLOWUP WITH FAMILY DOCTOR ONE WEEK ON DISCHARGE. FOLLOWUP WITH WOUND CLINIC AND INFECTIOUS DISEASE IN 1-2 WEEKS PLEASE CHECK PT/INR DAILY WHILE AT CORRECTION AND ADJUST COUMADIN DOSE. AQQUCHECKS ACHS AND MONITOR BLOOD SUGARS.(PATENT PRONE FOR HYPOGLYCEMIA) Current Hospital Diet Patient's current hospital diet: AHA Diet (Heart Healthy), Diabetes Type 2 Diet Discharge Diet Recommended Diet: AHA Diet (Heart Healthy), Diabetes Type 2 Diet Pending Studies Studies pending at discharge: no Physician Orders On Transfer Special Precautions: FALL AND ASPIRATION PRECAUTIONS Vital Signs: EVERY 8HRS Laboratory Results Hemoglobin A1c Test 02/01/17 14:30 Range/Units Estimated Average Glucose 137 mg/dl Hemoglobin A1c 6.4 H 4.5-5.6 % Lipid Panel Test 02/02/17 04:25 Range/Units Triglycerides Level 50 0-150 mg/dl Cholesterol Level 116 0-200 mg/dl HDL Cholesterol 67 mg/dl Cholesterol/HDL Ratio 1.7 LDL Cholesterol, Calculated 39 mg/dl Medical Emergencies . Who to Call and When: Medical Emergencies: If at any time you feel your situation is an emergency, please call 911 immediately. . Non-Emergent Contact Non-Emergency issues call your: Primary Care Provider . . "Provider Documentation" section prepared by Blayne Chester. Core Measure Problem Core Measures: None
[2017-02-08] MEDS ORDERED: DOXY100C41 PO (11:34)
--- NOTE | 2017-02-08 13:06 | Progress Note ---
Internal Med Progress Note Date of Service: Feb 08, 2017. Provider Documentation: SUBJECTIVE: resting comfortably denies pain afebrile denies sob no pain OBJECTIVE: Vital Signs-as noted below Exam: General-alert and oriented x 2 ENT-hard of hearing Neck-no neck masses Lungs-cta b/l no wheezing no crackles Heart-s1 and s2 heard regular rate and rhythm no murmurs' Abdomen-soft bowel sounds present non tender no distension Extremities-no edema no erythema Neuro-alert and awake and oriented speech normal moves extremities Lab data as noted below. ASSESSMENT & PLAN: ALTERED MENTAL STATUS WITH RIGHT FACIAL DROOP Mostlikely from hypoglycemia ruled out acute CVA; history of prior CVA with left side residual weakness Metabolic encephalopathy from hypoglycemia, infection Urine drug screen negative Initial CT head showed multiple old strokes, no acute findings repeat ct head no acute findings Unable to obtain MRI secondary to pace maker carotid doppler unremarkable on aspirin and statin; Coumadin held for supratherapeutic INR started on Keppra by neurology but later stopped as symptoms mostly seems from hypoglcemia Seen by Speech PT, OT evaluations eeg non specific seems at his baseline stable currently and discharging [facility] today HYPOGLYCEMIA Possibly due to underlying infection; has DM 2 not using insulin at home On chronic steroids for unknown reason- > Stress does steroids ordered received D5 NSS d/w Endocrinology sugars coming up on d5w stopped d5w tapered steroids to his home dose resolved close followup with melita LEFT GREAT TOE OSTEOMYELITIS on iv jagdeepo and mikelsypepper Consulted infectious disease Consulted orthopedic surgery consulted vascular and appreciate inputs and await recommendations No plan for surgery biy vascular surgery ID recommends 3 weeks of po Doxycycline and followup in wound clinic UTI proteus received zosyn [place] on CKD III Creat increased to 2.3 from baseline 2.0 Held Lasix and spironolactone which are restarted now received gentle IVF's cr 2.1 today HYPOKALEMIA Replacement given; resolved Monitor PRP BORDERLINE BP Lasix and spironolactone held Metoprolol reduced from 25 mg ->12.5 mg daily improving and restarted diuretics PAROXYSMAL AFIB/ SINUS NODE DYSFUNCTION S/P PACEMAKER INR supratherapeutic Holding Coumadin; monitor INR Rate is controlled Metoprolol dose decreased from 25 ->12.5 mg daily on amiodarone Interrogate pacemaker inr 1.4 but holding Coumadin for any procedures. Restarted Coumadin and needs close followup of pt/inr CHRONIC DIASTOLIC CHF CXR shows congestive findings Appears compensated on exam Holding Lasix and spironolactone for now will monitor for volume overload as on fluids restarted diuretics stable COPD WITH NOCTURNAL HYPOXEMIA Not in acute exacerbation Continue nocturnal O2 CHRONIC ANEMIA Hg 9.8 on presentation stable from baseline Family denies bleeding hb 7.6 01/07/17 transfused two units prbc hb ~10 negative check stool studies CAD S/P CABG stable on aspirin, statin, beta ramona HYPOTHYROIDISM Continue levothyroxine follow thyroid profile [facility]charged to [facility] Vital Signs: Date Time Temp Pulse Resp B/P Pulse Ox O2 Delivery O2 Flow Rate FiO2 02/08/17 08:00 Nasal Cannula 2.0 02/08/17 07:20 36.4 65 18 131/75 97 Nasal Cannula 2.0 02/08/17 00:49 36.5 59 18 120/73 100 2.0 02/08/17 00:29 Nasal Cannula 2.0 02/07/17 20:30 Nasal Cannula 2.0 02/07/17 15:45 Room Air 02/07/17 15:13 36.5 63 18 125/80 99 Room Air Lab Results: Results Past 24 Hours Test 02/07/17 13:51 02/07/17 16:38 02/07/17 20:14 02/08/17 07:20 Range/Units Vancomycin Level Trough 28.2 SEE COMMENT mcg/ml Bedside Glucose 96 89 98 70-99 mg/dl Test 02/08/17 10:59 02/08/17 12:08 Range/Units Bedside Glucose 125 70-99 mg/dl Random Vancomycin Level 26.4 mcg/ml
--- NOTE | 2017-02-08 13:10 | Discharge Summary ---
Discharge Summary Date of Service Feb 08, 2017. Discharge Summary Admission Date: Feb 01, 2017 at 16:40 Discharge Date: Feb 08, 2017 Discharge Disposition: [facility] facility Principal Diagnosis: RIGHT FACIAL DROOP ENCEPHALOPATHY METABOLIC HYPOGLYCEMIA UTI OSTEOMYELITIS ARF Secondary Diagnoses/Problems: (1) Anemia Nos Status: Chronic (2) Atrial Fibrillation Status: Chronic (3) CHF (congestive heart failure) Status: Resolved (4) Chronic anticoagulation Status: Chronic (5) CKD (chronic kidney disease), stage III Status: Chronic (6) COPD (chronic obstructive pulmonary disease) Status: Chronic (7) Diab W Neuro Manifest, Type Ii Or Unspec Type, Not Uncntrld Status: Chronic (8) Diastolic CHF Status: Chronic (9) GI bleed Status: Resolved (10) History of stroke Permanent Comment: 2014 with residual left sided weakness Status: Chronic (11) Hyperlipidemia Nec/Nos Status: Chronic (12) Hypertension Nos Status: Chronic (13) Hypothyroidism Status: Chronic (14) Legal blindness Status: Chronic (15) Myocardial infarct Status: Resolved (16) Pacemaker Status: Chronic (17) Pulmonary hypertension Status: Chronic (18) SA node dysfunction Status: Chronic (19) Urin Tract Infection Nos Status: Resolved Procedures: HEAD CT: 1. Several old right and to a lesser extent left periventricular infarct. 2. No acute intracranial abnormality. CAROTID US: 1. Atherosclerotic plaque with no sonographic evidence of hemodynamically significant stenosis in the right or left carotid arterial system. 2. Antegrade flow is shown in the vertebral arteries. LEFT FIRST TOE XRAY: Findings are consistent with osteomyelitis involving the tuft of the first distal phalanx with overlying cellulitis. LOWER EXT US: 1. Findings consistent with multifocal arterial occlusive change. 2. Waveforms are monophasic from the popliteal arteries distally to the level of the feet bilaterally. 3. Findings suggesting a significant stenotic process of the left superficial femoral artery in the distal thigh as well as popliteal 4. Dampened waveforms of the 3 runoff vessels of the lower legs bilaterally suggesting compromised flow status. RENAL US: 1. No renal masses identified. 2. No evidence of hydronephrosis 3. Trace right perihepatic fluid ECHO: The right ventricle is mildly dilated. * The right ventricular systolic function is reduced as assessed by tricuspid annular plane systolic excursion (TAPSE) (TAPSE <1.6 cm). * There is mild concentric left ventricular hypertrophy. * Septal motion is consistent with post-operative state. * There is a bioprosthetic mitral valve. * Normal prosthetic mitral valve gradients. * The bioprosthetic valve leaflets are poorly visualized. * There is a non-mobile echodensity near the lateral MV annulus. Vegetation cannot be excluded. Clinical correlation reccommended. Consultations: [facility] SURGERY NEUROLOGY Medication Reconciliation New Medications: Calcium Carbonate-Vitamin D (Calcium + D) 1 Tab Tab 1 TAB PO DAILY for 30 Days, 2 Refills Cholecalciferol (Vitamin D) 2,000 Unit Tab 2000 UNITS PO DAILY for 30 Days, 3 Refills Doxycycline (Monohydrate) (Monodox) 100 Mg Cap 100 MG PO BID for 21 Days, #42 CAP Lactobacillus Acidophilus (Lactinex) Tab 1 TAB PO BID, #60 TAB 2 Refills Continued Medications: Albuterol Hfa (Ventolin Hfa) 200 Puffs/98825 Mcg Aers 2 PUFFS INH Q4H PRN for SOB/Wheezing, #1 INHALER Amiodarone Hcl (Cordarone) 200 Mg Tab 200 TAB PO QAM Aspirin (Aspirin Ec) 81 Mg Tab 81 MG PO DAILY Atorvastatin (Lipitor) 80 Mg Tab 80 MG PO HS Citalopram Hydrobromide (Citalopram Hydrobromide) 10 Mg Tab 10 MG PO DAILY Docusate Sodium (Stool Softener) 100 Mg Tab 100 MG PO DAILY PRN for Constipation Furosemide (Lasix) 20 Mg Tab 40 MG PO QAM Levothyroxine Sodium (Levothyroxine Sodium) 25 Mcg Tab 25 MCG PO DAILY Lorazepam (Ativan) 0.5 Mg Tab 0.5 MG PO HS Metoprolol Tartrate (Lopressor) (Lopressor) 25 Mg Tab 25 MG PO QAM for 30 Days, #30 TAB 2 Refills Oxygen (Oxygen) Gas 2 LITERS NA HS Oxymetazoline Hcl (Afrin) 0.05 % Spr 1 SPRAY EH DAILY PRN for Nasal Congestion Pantoprazole (Protonix) 40 Mg Tab 40 MG PO HS Prednisone Tab (Prednisone) 10 Mg Tab 10 MG PO Q2D Take 10 mg by mouth every other day at night Risperidone (Risperdal) 0.25 Mg Tab 0.25 MG PO BID Spironolactone (Spironolactone) 25 Mg Tab 25 MG PO QAM for 30 Days, TAB Tamsulosin Hcl (Flomax) 0.4 Mg Cap 0.4 MG PO HS Warfarin Sod (Jantoven) 5 Mg Tab 5 MG PO DAILY ON TUESDAY Warfarin Sod (Jantoven) 5 Mg Tab 2.5 MG PO 6XWK TAKE 1/2 TAB TUESDAY THROUGH TUESDAY Zolpidem Tartrate (Ambien) 5 Mg Tab 5 MG PO HS PRN for Sleep for 30 Days, #30 TAB 2 Refills Discontinued Medications: Insulin Aspart (Novolog Flexpen) 100 Units/Ml Inj 0-10 UNITS SC SLIDING SCALE. CAN TAKE UP TO 10 UNITS DEPENDING ON SLIDING SCALE Admission Information HPI (per Admitting provider): This is a 71 y/o male with PMH of prior CVA in 2014 with residual left sided weakness, CAD, diastolic CHF, paroxysmal atrial fibrillation, SA node dysfunction s/p pacemaker, HTN, HL, DM type 2, and other problems listed below who presents to the ED for altered mental status and right facial droop. Hx cannot be obtained from pt due to mental status. Family states for past 2 weeks patient has been agitated and aggressive and was having visual hallucinations seeing people who were not there. Last night pt had severe BRISENO which resolved with aspirin. He ate breakfast this morning and had a loose BM. Then around noon while with his grandson he became verbally unresponsive with right facial droop. It was reported that his blood sugar was 20 when EMS arrived. He received glucose [employer]CTION [employer] and dextrose in the ER. Initially on arrival patient was unable to identify his son. Could not tell me the location on beginning of my exam. By the end of my exam was able to identify his son and tell he was in the hospital. Disoriented to date but family states that is typical. Still has right facial droop. Family reported a generalized shaking episode in the ER lasting 5 minutes but did not alert the staff. Family reports intermittent staring after that. Patient is unable to tell what happened today. When questioned states he "feels good". Patient himself denies but I do not consider his answers reliable. Family states pt was treated for URI with productive cough and cellulitis of right great toe with abx approx 1 month ago. The cough resolved but the toe did not improve. Has urinary odor at baseline and now has darkened urine. No fevers or chills per the family. No recent bleeding per the family. Patient is mostly bedbound and requires assistance with most ADL's. Family having a hard time taking care of him recently and looking into placement. Daughter in law gives medications. Patient has not had insulin for several months as he has been refusing it. Physical Exam (per Admitting): General Appearance: + pertinent finding (confused acutely ill appearing 71 year old male, not in distress, poor hygiene, family at bedside) Head: normocephalic, atraumatic Eyes: normal inspection, PERRL, + pertinent finding (unable to cooperate with EOM exam) ENT: hearing grossly normal, pharynx normal Neck: supple, trachea midline Respiratory/Chest: lungs clear, normal breath sounds, no respiratory distress, no accessory muscle use Cardiovascular: regular rate, rhythm, + systolic murmur Abdomen/GI: normal bowel sounds, non tender, soft Extremities/Musculoskelatal: no calf tenderness, + pertinent finding (trace pretibial edema bilaterally) Neurologic/Psych: alert, + pertinent finding (awake but falls asleep intermittently. oriented to person and place, disoriented to date. unable to recall recent events. does not follow commands appropriately. mild right sided facial droop. uncooperative with motor exam but spontaneously moves all extremities. sensation to light touch grossly intact. toes downgoing. ) Skin: warm/dry, + pertinent finding (scattered ecchymosis upper extremities. skin tear RUE. dressing on LUE. left great toe with significant erythema and tenderness. no fluctuance or drainage.) Physical Exam (per Admitting): General Appearance: + pertinent finding (confused acutely ill appearing 71 year old male, not in distress, poor hygiene, family at bedside) Head: normocephalic, atraumatic Eyes: normal inspection, PERRL, + pertinent finding (unable to cooperate with EOM exam) ENT: hearing grossly normal, pharynx normal Neck: supple, trachea midline Respiratory/Chest: lungs clear, normal breath sounds, no respiratory distress, no accessory muscle use Cardiovascular: regular rate, rhythm, + systolic murmur Abdomen/GI: normal bowel sounds, non tender, soft Extremities/Musculoskelatal: no calf tenderness, + pertinent finding (trace pretibial edema bilaterally) Neurologic/Psych: alert, + pertinent finding (awake but falls asleep intermittently. oriented to person and place, disoriented to date. unable to recall recent events. does not follow commands appropriately. mild right sided facial droop. uncooperative with motor exam but spontaneously moves all extremities. sensation to light touch grossly intact. toes downgoing. ) Skin: warm/dry, + pertinent finding (scattered ecchymosis upper extremities. skin tear RUE. dressing on LUE. left great toe with significant erythema and tenderness. no fluctuance or drainage.) Hospital Course ALTERED MENTAL STATUS WITH RIGHT FACIAL DROOP Mostlikely from hypoglycemia ruled out acute CVA; history of prior CVA with left side residual weakness Metabolic encephalopathy from hypoglycemia, infection Urine drug screen negative Initial CT head showed multiple old strokes, no acute findings repeat ct head no acute findings Unable to obtain MRI secondary to pace maker carotid doppler unremarkable on aspirin and statin; Coumadin held for supratherapeutic INR started on Keppra by neurology but later stopped as symptoms mostly seems from hypoglcemia Seen by Speech PT, OT evaluations eeg non specific seems at his baseline stable currently and [facility] today HYPOGLYCEMIA Possibly due to underlying infection; has DM 2 not using insulin at home On chronic steroids for unknown reason- > Stress does steroids ordered received D5 NSS d/w Endocrinology sugars coming up on d5w stopped d5w tapered steroids to his home dose resolved close followup with melita LEFT GREAT TOE OSTEOMYELITIS on iv vanco and zosyn Consulted infectious disease Consulted orthopedic surgery consulted vascular and appreciate inputs and await recommendations No plan for surgery biy vascular surgery ID recommends 3 weeks of po Doxycycline and followup in wound clinic UTI proteus received zosyn [place] on CKD III Creat increased to 2.3 from baseline 2.0 Held Lasix and spironolactone which are restarted now received gentle IVF's cr 2.1 today HYPOKALEMIA Replacement given; resolved Monitor PRP BORDERLINE BP Lasix and spironolactone held Metoprolol reduced from 25 mg ->12.5 mg daily improving and restarted diuretics PAROXYSMAL AFIB/ SINUS NODE DYSFUNCTION S/P PACEMAKER INR supratherapeutic Holding Coumadin; monitor INR Rate is controlled Metoprolol dose decreased from 25 ->12.5 mg daily on amiodarone Interrogate pacemaker inr 1.4 but holding Coumadin for any procedures. Restarted Coumadin and needs close followup of pt/inr CHRONIC DIASTOLIC CHF CXR shows congestive findings Appears compensated on exam Holding Lasix and spironolactone for now will monitor for volume overload as on fluids restarted diuretics stable COPD WITH NOCTURNAL HYPOXEMIA Not in acute exacerbation Continue nocturnal O2 CHRONIC ANEMIA Hg 9.8 on presentation stable from baseline Family denies bleeding hb 7.6 01/07/17 transfused two units prbc hb ~10 negative check stool studies CAD S/P CABG stable on aspirin, statin, beta ramona HYPOTHYROIDISM Continue levothyroxine follow thyroid profile [facility]charged to [facility] Total time spent on discharge = 40MINUTES This includes examination of the patient, discharge planning, medication reconciliation, and communication with other providers. Discharge Instructions Discharge Instructions Date of Service Feb 08, 2017. Admission Reason for Admission: Altered Mental Status Hypoglycemia Discharge Discharge Diagnosis / Problem: aleterd mental staus, Hypoglycemia, Osteomyelitis Discharge Goals Goal(s): Decrease discomfort, Improve function Activity Recommendations Activity Level: Assistance Required Therapies: Physical Therapy, Occupational Therapy . Additional Information Patient informed of condition: Yes Advance Directives: Yes DNR: Yes Level of Care: Skilled Communicable Disease: No Prognosis: Stable Aguila Catheter: No Instructions / Follow-Up Instructions / Follow-Up FOLLOWUP WITH FAMILY DOCTOR ONE WEEK ON DISCHARGE. FOLLOWUP WITH WOUND CLINIC AND INFECTIOUS DISEASE IN 1-2 WEEKS PLEASE CHECK PT/INR DAILY WHILE AT [facility] AND ADJUST COUMADIN DOSE. AQQUCHECKS ACHS AND MONITOR BLOOD SUGARS.(PATENT PRONE FOR HYPOGLYCEMIA) Current Hospital Diet Patient's current hospital diet: AHA Diet (Heart Healthy), Diabetes Type 2 Diet Discharge Diet Recommended Diet: AHA Diet (Heart Healthy), Diabetes Type 2 Diet Pending Studies Studies pending at discharge: no Physician Orders On Transfer Special Precautions: FALL AND ASPIRATION PRECAUTIONS Vital Signs: EVERY 8HRS Laboratory Results Hemoglobin A1c Test 02/01/17 14:30 Range/Units Estimated Average Glucose 137 mg/dl Hemoglobin A1c 6.4 H 4.5-5.6 % Lipid Panel Test 02/02/17 04:25 Range/Units Triglycerides Level 50 0-150 mg/dl Cholesterol Level 116 0-200 mg/dl HDL Cholesterol 67 mg/dl Cholesterol/HDL Ratio 1.7 LDL Cholesterol, Calculated 39 mg/dl Medical Emergencies . Who to Call and When: Medical Emergencies: If at any time you feel your situation is an emergency, please call 911 immediately. . Non-Emergent Contact Non-Emergency issues call your: Primary Care Provider . . "Provider Documentation" section prepared by Blayne Chester. Core Measure Problem Core Measures: None
[2017-02-08 13:15] VITALS: BP 131/75; PULSE 65; TEMP 36.4; O2SAT 97
[2017-02-08] MEDS ORDERED: WARFARIN SOD 2.5 MG TAB PO SCH (16:00)
[2017-02-09 22:17] LABS: ILGF1 Z SCORE MALE -0.2 SD (-2.0 - +2.0); INSULIN AUTOANTIBODY 36178 <0.4 U/mL (<0.4); INSULIN LIKE GROWTH FACTOR-I 92 ng/mL (34-245)
[2017-02-14] MEDS ORDERED: WARFARIN SOD 5 MG TAB PO SCH (16:00)
== END 2017-02-08 15:48 | DRG 637 ==
LOC: CANRESERV → ENRESERVTM → ENRESERVDT → EDBD 13:38 → C.EDA 13:39 → C.EDINP 16:40 → EDBEDREQSVC 02-02 10:39 → C.MS2W 02-02 12:35
PROVIDERS: ADMIT Internal Medicine; ATTEND Internal Medicine
DX: E11.69 Type 2 diabetes mellitus with other specified complication (principal); G93.41 Metabolic encephalopathy; I69.354 Hemiplegia and hemiparesis following cerebral infarction affecting left non-dominant side; I50.32 Chronic diastolic (congestive) heart failure; M86.8X7 Other osteomyelitis, ankle and foot; I13.0 Hypertensive heart and chronic kidney disease with heart failure and stage 1 through stage 4 chronic kidney disease, or unspecified chronic kidney disease; N39.0 Urinary tract infection, site not specified; N17.9 Acute kidney failure, unspecified; E11.649 Type 2 diabetes mellitus with hypoglycemia without coma; E11.49 Type 2 diabetes mellitus with other diabetic neurological complication; I25.10 Atherosclerotic heart disease of native coronary artery without angina pectoris; I48.0 Paroxysmal atrial fibrillation; E11.22 Type 2 diabetes mellitus with diabetic chronic kidney disease; D64.9 Anemia, unspecified; Z79.01 Long term (current) use of anticoagulants; N18.3 Chronic kidney disease, stage 3 (moderate); J44.9 Chronic obstructive pulmonary disease, unspecified; H54.8 Legal blindness, as defined in USA; Z87.891 Personal history of nicotine dependence; I25.2 Old myocardial infarction; Z95.0 Presence of cardiac pacemaker; I27.2 Other secondary pulmonary hypertension; Z95.2 Presence of prosthetic heart valve; Z95.1 Presence of aortocoronary bypass graft; Z91.013 Allergy to seafood; Z79.82 Long term (current) use of aspirin; Z99.81 Dependence on supplemental oxygen; Z79.899 Other long term (current) drug therapy; Z79.4 Long term (current) use of insulin; Z79.52 Long term (current) use of systemic steroids; E87.6 Hypokalemia; R09.02 Hypoxemia; E03.9 Hypothyroidism, unspecified; Z66 Do not resuscitate; R29.810 Facial weakness; R68.0 Hypothermia, not associated with low environmental temperature; E78.5 Hyperlipidemia, unspecified; B96.4 Proteus (mirabilis) (morganii) as the cause of diseases classified elsewhere; Z87.19 Personal history of other diseases of the digestive system; Z68.35 Body mass index [BMI] 35.0-35.9, adult

== ENCOUNTER → 2017-02-14 | Outpatient (CLI) | payer OTHER ==
[~2017-02-14] MED LIST changes: -ALBU0.08 INH; -CALC500C3 PO; +CALC600T9 PO; +CHOL20009 PO; +CITA10TA4 PO; -CMD/25 PO; +DOXY100C41 PO; +FURO-85 PO; +LCTX PO; +LORA-741 PO; -LSX40 PO; -NVLGIPEN SC; +OXYM0.056 NAE; +PRED10TA PO; +RISP0.258 PO; +VNTHFA/IN INH; +WARF5TAB7 PO; +ZOLP5TAB PO
== END ==
LOC: C.LABCC 08:05
PROVIDERS: ATTEND Internal Medicine
DX: I48.91 Unspecified atrial fibrillation (principal)